=== PATIENT | male | born 1940 | race Caucasian/White ===

== ENCOUNTER 2020-12-08 09:31 | Outpatient (REF) | payer MEDICARE, SELFPAY ==
[2020-12-08 10:12] LABS: MANUAL DIFF FLAG NO
[2020-12-08 10:18] LABS: Basophils Percent Auto 0.5 % (0-2); Eosinophils Absolute Auto 0.1 X10*3/uL (0.0-0.4); Eosinophils Percent Auto 1.1 % (0-4); Hematocrit 45.1 % (42-52); Hemoglobin 14.8 g/dl (14.0-18.0); Imm Gran Abs Auto 0.01 X10*3/uL (0.00-0.03); Imm Gran Pct Auto 0.2 % (0.0-0.4); Lymphocytes Absolute Auto 1.9 X10*3/uL (1.2-4.9); Lymphocytes Percent Auto 29.8 % (20-40); Mean Corpuscular HGB Conc 32.8 g/dl (31.0-36.0); Mean Corpuscular Volume 88.3 fL (80-98); Monocytes Absolute Auto 0.4 X10*3/uL (0.1-1.2); Monocytes Percent Auto 6.7 % (2-11); Neutrophils Percent Auto 61.7 % (45-73); Platelet Count 189 X10*3/uL (160-400); Red Blood Count 5.11 X10*6/uL (4.60-5.80); Red Cell Distribution Width 13.2 % (11.0-16.0); White Blood Count 6.5 X10*3/uL (4.8-10.8)
[2020-12-08 10:35] LABS: Estimated Average Glucose 223 mg/dL; Hemoglobin A1c % 9.4 %
[2020-12-08 10:49] LABS: Alanine Aminotransferase 17 U/L (0-40); Albumin Level 4.4 g/dL (3.5-5.0); Alkaline Phosphatase 70 U/L (39-117); Anion Gap 13 (12-20); Aspartate Amino Transferase 19 U/L (5-37); Bilirubin Direct 0.7 mg/dL (0.0-0.5); Bilirubin Total 1.6 mg/dL (0.0-1.0); Blood Urea Nitrogen 16 mg/dL (9-16); Calcium 9.8 mg/dL (8.4-10.2); Carbon Dioxide 30 mmol/L (22-29); Chloride 105 mmol/L (96-108); Cholesterol 112 mg/dL; Estimated Glomerular Filt Rate > 60; Glucose Random 199 mg/dL (60-115); HDL Cholesterol 52 mg/dL; LDL Cholesterol Calculated 47 mg/dl; Potassium 4.7 mmol/L (3.3-5.1); Sodium 143 mmol/L (135-145); Total Protein 6.7 g/dL (6.5-8.0); Triglycerides 66 mg/dL
[2020-12-08 11:32] LABS: Creatinine Urine 72.16 mg/dL; Microalbum/Creatinine Ratio Ur 24.9 ug/mg cr
== END 2020-12-08 09:32 | disposition home or self-care (01) ==
LOC: HO.LAB 09:31
PROVIDERS: PCP Student in an Organized Health Care Education/Training Program; Visit Provider Student in an Organized Health Care Education/Training Program
DX: E11.9 Type 2 diabetes mellitus without complications (principal); E78.00 Pure hypercholesterolemia, unspecified; I10 Essential (primary) hypertension
CPT/HCPCS: 36415; 80048; 80061; 80076; 82043; 83036; 85025

== ENCOUNTER → 2021-03-23 14:56 | Outpatient (BNVA) | payer MEDICARE, SELFPAY | PROVIDERS: PCP Student in an Organized Health Care Education/Training Program; Visit Provider Internal Medicine Cardiovascular Disease | DX: I25.10 Atherosclerotic heart disease of native coronary artery without angina pectoris (principal); I10 Essential (primary) hypertension | CPT/HCPCS: 93005; 99212 ==

== ENCOUNTER → 2021-03-30 09:12 | Outpatient (BNVA) | payer MEDICARE, SELFPAY | PROVIDERS: PCP Student in an Organized Health Care Education/Training Program; Referring Provider Student in an Organized Health Care Education/Training Program; Visit Provider Surgery Vascular Surgery | DX: I83.12 Varicose veins of left lower extremity with inflammation (principal); I73.9 Peripheral vascular disease, unspecified | CPT/HCPCS: 99202 ==

== ENCOUNTER 2021-04-22 07:55 | Outpatient (REF) | payer MEDICARE, SELFPAY ==
--- NOTE | ~2021-04-22 | US_ITS ---
EXAMINATION: BILATERAL LOWER EXTREMITY VENOUS ULTRASOUND (Reflux Exam) CLINICAL INDICATION: Lower extremity varicose veins. History of prior venous intervention including vein harvest and ablation. COMPARISON: None. TECHNIQUE: Color flow triplex imaging and compression Doppler was performed to evaluate both the deep and the superficial systems bilaterally. To evaluate the superficial system, the examination was performed in the upright position. Color-flow Doppler ultrasound and compression ultrasound were utilized. In addition, maneuvers were utilized to demonstrate reflux. FINDINGS: 1. DEEP VENOUS ULTRASOUND OF THE RIGHT LOWER EXTREMITY: Common Femoral Vein: Compressible, normal respiratory variation and augmented flow. Femoral vein: Compressible, normal color flow and augmentation. Popliteal Vein: Compressible, normal augmentation. Deep Reflux: There is no evidence of reflux in the deep system in either the common femoral vein or the popliteal vein. There is no evidence of a Dennison's cyst. 2. SUPERFICIAL ULTRASOUND WITH DOPPLER OF RIGHT LOWER EXTREMITY GREAT SAPHENOUS VEIN: Saphenofemoral junction: 0.7 cm; Reflux: No evidence of reflux. The great saphenous vein is occluded from the proximal thigh to the distal thigh. The saphenous vein is patent from the knee to the ankle measuring between 2 and 4 mm. Reflux: No evidence of reflux. DUPLICATED MEDIAL GREAT SAPHENOUS VEIN: Max Diameter: None Imaged Reflux: NA DUPLICATED LATERAL GREAT SAPHENOUS VEIN: Diameter: 0.2 cm at the junction. Reflux: No reflux. SMALL SAPHENOUS VEIN: Saphenopopliteal junction: 0.2 cm; Reflux: No evidence of reflux. VEIN OF GIACOMINI: None Imaged. PERFORATORS: Location: Mid thigh arising from the mid femoral vein and proximal calf. Reflux: None. VARICOSITIES: Location: Maximal thigh, mid posterior thigh and proximal calf. Varicosities measure between 3 and 6 mm. Reflux: 3.1 seconds of reflux demonstrated within the proximal calf varicosity. 3. DEEP VENOUS ULTRASOUND OF THE LEFT LOWER EXTREMITY: Common Femoral Vein: Compressible, normal respiratory variation and augmented flow. Femoral vein: Compressible, normal color flow and augmentation. Popliteal Vein: Compressible, normal augmentation. Deep Reflux: Common femoral vein reflux up to 0.9 seconds and femoral vein reflux up to 2.2 seconds. There is no evidence of a Dennison's cyst. 4. SUPERFICIAL ULTRASOUND WITH DOPPLER OF LEFT LOWER EXTREMITY GREAT SAPHENOUS VEIN: Saphenopopliteal junction: 0.6 cm; Reflux: No evidence of reflux. The great saphenous vein is not visualized from the proximal thigh to the ankle. DUPLICATED MEDIAL GREAT SAPHENOUS VEIN: Max Diameter: None Imaged. Reflux: NA DUPLICATED LATERAL GREAT SAPHENOUS VEIN: Diameter: 0.2 cm. Reflux: No reflux. SMALL SAPHENOUS VEIN: Saphenofemoral junction: 0.2 cm cm; Reflux: No evidence of reflux. Min diameter: 0.2 cm. Reflux: Greater than 3.4 seconds of reflux at the distal calf. VEIN OF GIACOMINI: None Imaged. PERFORATORS: Location: Arising from the distal small saphenous vein, 0.2 cm. Reflux: None. VARICOSITIES: Location: Posterior knee, proximal and posterior calf. Varicosities measure between 5 and 7 mm. Reflux: Multiple varicosities within the posterior knee and calf demonstrate reflux greater than 3.2 seconds. US/US venous duplex LE BI IMPRESSION: 1. The right great saphenous vein is not visualized from the proximal thigh to the knee. The distal right great saphenous vein is patent from the knee to the ankle without reflux. 2. The left great saphenous vein is not seen. 3. There is left small saphenous venous insufficiency at the distal calf. 4. Bilateral refluxing varicosities. 5. Deep venous insufficiency involving the left common femoral and femoral veins. 6. No evidence of DVT.
== END 2021-04-22 07:56 | disposition home or self-care (01) ==
LOC: HO.US 07:55
PROVIDERS: PCP Student in an Organized Health Care Education/Training Program; Visit Provider Surgery Vascular Surgery
DX: I83.12 Varicose veins of left lower extremity with inflammation (principal)
CPT/HCPCS: 93970

== ENCOUNTER → 2021-05-04 09:54 | Outpatient (BNVA) | payer MEDICARE, SELFPAY | PROVIDERS: PCP Student in an Organized Health Care Education/Training Program; Visit Provider Surgery Vascular Surgery | DX: I83.12 Varicose veins of left lower extremity with inflammation (principal); I73.9 Peripheral vascular disease, unspecified; I25.10 Atherosclerotic heart disease of native coronary artery without angina pectoris; E11.9 Type 2 diabetes mellitus without complications; I10 Essential (primary) hypertension; E78.5 Hyperlipidemia, unspecified; Z95.1 Presence of aortocoronary bypass graft | CPT/HCPCS: 99212 ==

== ENCOUNTER → 2021-05-14 10:39 | Outpatient (BNVA) | payer MEDICARE, SELFPAY | PROVIDERS: PCP Student in an Organized Health Care Education/Training Program; Visit Provider Surgery Vascular Surgery | DX: I83.12 Varicose veins of left lower extremity with inflammation (principal) | CPT/HCPCS: 37766 ==

== ENCOUNTER → 2021-05-25 13:50 | Outpatient (BNVA) | payer MEDICARE, SELFPAY | PROVIDERS: PCP Student in an Organized Health Care Education/Training Program; Visit Provider Surgery Vascular Surgery | DX: I83.11 Varicose veins of right lower extremity with inflammation (principal) | CPT/HCPCS: 99212 ==

== ENCOUNTER 2021-06-01 11:19 | Outpatient (REF) | payer MEDICARE, SELFPAY ==
[2021-06-01 12:46] LABS: Prostate Specific Antigen 0.84 ng/mL (<0.05-4.0)
== END 2021-06-01 11:20 | disposition home or self-care (01) ==
LOC: HO.LAB 11:19
PROVIDERS: PCP Student in an Organized Health Care Education/Training Program; Visit Provider Urology
DX: Z12.5 Encounter for screening for malignant neoplasm of prostate (principal); N40.0 Benign prostatic hyperplasia without lower urinary tract symptoms
CPT/HCPCS: 36415; 84153

== ENCOUNTER 2021-06-15 12:59 | Outpatient (REF) | payer MEDICARE, SELFPAY | END 2021-06-15 13:00 | disposition home or self-care (01) | LOC: HO.LAB 12:59 | PROVIDERS: PCP Student in an Organized Health Care Education/Training Program; Visit Provider Urology | DX: N39.0 Urinary tract infection, site not specified (principal); N40.0 Benign prostatic hyperplasia without lower urinary tract symptoms; N32.0 Bladder-neck obstruction | CPT/HCPCS: 51798; 87086; 87088; 87186; 99212 ==

== ENCOUNTER → 2021-08-17 13:14 | Outpatient (BNVA) | payer MEDICARE, SELFPAY | PROVIDERS: PCP Student in an Organized Health Care Education/Training Program; Visit Provider Surgery Vascular Surgery | DX: I83.11 Varicose veins of right lower extremity with inflammation (principal) | CPT/HCPCS: 99212 ==

== ENCOUNTER → 2021-08-24 14:54 | Outpatient (BNVA) | payer MEDICARE, SELFPAY | PROVIDERS: PCP Student in an Organized Health Care Education/Training Program; Visit Provider Urology | DX: N32.0 Bladder-neck obstruction (principal) | CPT/HCPCS: 52000; 99212 ==

== ENCOUNTER → 2021-09-10 10:19 | Outpatient (BNVA) | payer MEDICARE, SELFPAY | PROVIDERS: PCP Student in an Organized Health Care Education/Training Program; Visit Provider Surgery Vascular Surgery | DX: I83.11 Varicose veins of right lower extremity with inflammation (principal) | CPT/HCPCS: 37765 ==

== ENCOUNTER → 2021-10-05 13:21 | Outpatient (BNVA) | payer MEDICARE, SELFPAY | PROVIDERS: PCP Student in an Organized Health Care Education/Training Program; Visit Provider Surgery Vascular Surgery | DX: I83.12 Varicose veins of left lower extremity with inflammation (principal) | CPT/HCPCS: 99212 ==

== ENCOUNTER → 2022-02-22 14:46 | Outpatient (BNVA) | payer MEDICARE, SELFPAY | PROVIDERS: PCP Student in an Organized Health Care Education/Training Program; Visit Provider Urology | DX: N32.0 Bladder-neck obstruction (principal); N39.0 Urinary tract infection, site not specified; Z79.899 Other long term (current) drug therapy | CPT/HCPCS: 51798; 99212 ==

== ENCOUNTER → 2022-03-24 13:56 | Outpatient (BNVA) | payer MEDICARE, SELFPAY | PROVIDERS: PCP Student in an Organized Health Care Education/Training Program; Visit Provider Internal Medicine Cardiovascular Disease | DX: I25.10 Atherosclerotic heart disease of native coronary artery without angina pectoris (principal); I10 Essential (primary) hypertension | CPT/HCPCS: 93005; 99212 ==

== ENCOUNTER 2022-03-25 10:11 | Outpatient (REF) | payer OTHER, SELFPAY ==
[2022-03-25 11:41] LABS: Anion Gap 15 (12-20); Blood Urea Nitrogen 13 mg/dL (9-16); Calcium 9.5 mg/dL (8.4-10.2); Carbon Dioxide 27 mmol/L (22-29); Chloride 106 mmol/L (96-108); Cholesterol 100 mg/dL; Estimated Glomerular Filt Rate > 60; Glucose Random 196 mg/dL (60-115); HDL Cholesterol 48 mg/dL; LDL Cholesterol Calculated 36 mg/dl; Potassium 4.6 mmol/L (3.3-5.1); Sodium 143 mmol/L (135-145); Triglycerides 82 mg/dL
== END 2022-03-25 10:12 | disposition home or self-care (01) ==
LOC: HO.LAB 10:11
PROVIDERS: PCP Student in an Organized Health Care Education/Training Program; Visit Provider Internal Medicine Cardiovascular Disease
DX: I25.10 Atherosclerotic heart disease of native coronary artery without angina pectoris (principal)
CPT/HCPCS: 36415; 80048; 80061

== ENCOUNTER 2022-05-07 12:06 | Emergency (ER) | payer OTHER, SELFPAY ==
--- NOTE | ~2022-05-07 | US_ITS ---
EXAMINATION: US VENOUS ULTRASOUND WITH DOPPLER LOWER EXTREMITY, RIGHT CLINICAL INFORMATION: Right lower extremity pain and swelling. COMPARISON: Right lower extremity venous ultrasonography 04/22/2021. TECHNIQUE: Ultrasound of the deep veins is performed from the hip to the calf with compression sonography and color and pulse Doppler assessment. Spectral analysis with color-flow imaging is performed. FINDINGS: There is normal venous compression and respiratory variation and augmented flow. The visualized common femoral vein, superficial femoral vein, profunda femoral vein, popliteal vein, and the trifurcation region shows no evidence of deep venous thrombosis. There is no significant popliteal fossa cyst. Images labeled right espinoza area of pain demonstrates subcutaneous ovoid wider than tall region measuring approximately 1.8 cm x 0.5 cm with no measurable internal flow. This region is self identified by palpation. If the patient's symptoms persist, followup ultrasound in 5 days 7 days might be of value to exclude proximal propagation from a non-visualized calf vein. US/US venous duplex LE RT IMPRESSION: *No DVT demonstrated in the right lower extremity. *1.8 cm x 0.5 cm subcutaneous pretibial focus which may represent a hematoma. This region was self identified by the patient. This region demonstrates no measurable internal flow. In the correct clinical setting, a developing abscess could have a similar appearance.
[2022-05-07 12:13] VITALS: BP 149/47; PULSE 79; RESP 18; TEMP 36.7; O2SAT 99; BMI 26.6
--- NOTE | 2022-05-07 12:32 | ED.EXTPRO ---
HPI - Extremity Problem General Chief complaint: Extremity Problem Stated complaint: R Leg Pain No Injury Time Seen by Provider: 05/07/22 12:26 Source: patient Mode of arrival: ambulatory History of Present Illness HPI Narrative: Patient is an 80-year-old male who presents to the emergency department for evaluation of right lower extremity pain and swelling. States that this is been ongoing for a week. He states that after raking he went inside and he noticed a plum sized lump to the leg that has actually decreased in size since this occurred. However, pain has worsened since last night. Pain localized to right medial leg, inferior to knee. Denies any numbness or tingling to the extremity, denies any cold sensation to the extremity. Is ambulatory with steady gait. Palpable 2+ DP/PT pulse bilaterally. Denies chest pain, shortness of breath, difficulty breathing. Denies history of DVT/PE. Denies history of anticoagulation disorder. Denies personal history of cancer. Related Data Home Medications Medication Instructions Recorded Confirmed albuterol sulfate 2.5 mg/3 mL mg inhalation 03/23/21 03/24/22 (0.083 %) solution for nebulization albuterol sulfate 90 mcg/actuation 2 puff PO QID 03/23/21 03/24/22 aerosol inhaler aspirin 81 mg chewable tablet 1 tab PO DAILY 03/23/21 03/24/22 cetirizine 10 mg tablet 10 mg PO DAILY 03/23/21 03/24/22 cilostazol 50 mg tablet 50 mg PO 03/23/21 03/24/22 hydrochlorothiazide 25 mg tablet 25 mg PO DAILY 03/23/21 03/24/22 ibuprofen 400 mg tablet 0 mg PO 03/23/21 03/24/22 metformin 1,000 mg tablet 1,000 mg PO BID 03/23/21 03/24/22 nitroglycerin 0.4 mg sublingual 0.4 mg sublingual angina 03/23/21 03/24/22 tablet blood sugar diagnostic (FreeStyle #10 ea 03/30/21 03/24/22 Lite Strips) lancets 33 gauge (TRUEplus Lancets) #100 ea 03/30/21 02/22/22 lidocaine 5 % topical ointment topical 03/30/21 02/22/22 clotrimazole-betamethasone 1 appl topical 05/04/21 03/24/22 %-0.05 % topical cream clobetasol 0.05 % topical cream g topical BID 06/15/21 03/24/22 glipizide 5 mg tablet 5 mg PO BID 06/15/21 03/24/22 Previous Rx's Medication Instructions Recorded tamsulosin 0.4 mg capsule 0.8 mg PO BEDTIME 90 days #180 caps 02/22/22 blood pressure monitor (Blood #1 ea 03/24/22 Pressure Kit) rosuvastatin 40 mg tablet 40 mg PO BEDTIME #90 tabs 03/24/22 telmisartan 40 mg tablet (Micardis) 40 mg PO DAILY #90 tabs 03/24/22 Allergies Allergy/AdvReac Type Severity Reaction Status Date / Time No Known Allergies Allergy Verified 02/22/22 14:10 [No Known Allergies*] Review of Systems Review of Systems: Constitutional: No weight loss. No fever. No chills. No weakness. No fatigue. Skin: No rash. No itching. Cardiovascular: No chest pain. No chest pressure. No palpitations. Positive pedal edema. Respiratory: No shortness of breath. No cough. No sputum production. Gastrointestinal: No anorexia. No nausea. No vomiting. No diarrhea. No abdominal pain. Genitourinary: No burning micturition. No urinary frequency. No incontinence. Neurologic: No headache. No dizziness. No pre-syncope/ syncope. No unilateral weakness. No ataxia. No numbness. No tingling. No change in bowel or bladder control. Musculoskeletal: No muscle pain. No back pain. No joint pain. No stiffness. Positive right leg pain Hematologic: No bleeding. No bruising. Lymphatics: No enlarged lymph nodes. Yes all other systems are reviewed and are negative [facility], [facility] Past Medical History Attestation statement: The following information was validated with the patient. Source: old records reviewed Medical History CAD (coronary artery disease) Diabetes mellitus HTN (hypertension) Hyperlipidemia PVD (peripheral vascular disease) Surgical History History of gastric surgery Hx of CABG Family History Family History Father No problems noted. Mother No problems noted. Sister Cancer Social History Social History Patient Tobacco Use Status: Never used Tobacco Advance Directives: No Advance Directives Information Provided: Yes Physical Exam Vital Signs: Vital Signs: Last Vital Signs Temp 98.1 F 05/07/22 12:13 Pulse 61 05/07/22 14:17 Resp 18 05/07/22 14:17 BP 157/55 H 05/07/22 14:17 Pulse Ox 99 05/07/22 14:17 O2 Del Method 05/07/22 14:17 BMI result Body Mass Index 26.6 Appearance: Alert.?Oriented to person, place and time. No acute distress.?Normal affect. Eyes: Pupils equal, round and reactive to light.? ENT: Pharynx normal.?? Neck: Normal inspection.? Neck supple.?? CVS: Heart sounds normal. Normal heart rate and rhythm.? Pulses normal.?? Respiratory: No respiratory distress.? Lung sounds clear to auscultation bilaterally?? Abdomen: Soft and non-tender. Normoactive bowel sounds. Skin: Skin warm and dry.? Normal skin color.? Extremities: 1+ bilateral lower extremity edema.? No calf ttp. 2+ DP/PT pulse bilaterally. Notable varicose veins to the area of pain and swelling in the right lower extremity. No erythema, rash, skin lesions, wounds. Neuro: Moves all extremities spontaneously. Sensation intact bilaterally. CN II-XII intact. No focal neuro deficits. Ambulates with normal steady gait. Course Course Course Narrative: Patient is an 82-year-old male with a past medical history of CAD, CABG, diabetes, hypertension, hyperlipidemia, PVD, varicose veins, wears thigh-high compression stockings daily, followed by vascular Dr. Vega. Upon exam the area pain is noted to have presence of varicose vein. There is no wound, lesion, redness, warmth, does not appear consistent with cellulitis/abscess. However given sudden onset of worsening pain and swelling will obtain ultrasound to exclude DVT. Reevaluation(s) Reevaluation #1: Ultrasound reveals no evidence of DVT, there is a pretibial focus which may represent a hematoma, no external bruising, patient denies any specific injury to this area, not consistent with abscess. Suspect possible ruptured varicose vein after activity which may have caused the initial swelling immediately after, it is overall improving. Discussed Management of varicose veins continued usage of compression stockings, leg elevation, routine exercise, outpatient follow-up with vascular, and PCP. Patient verbalized understanding, was discharged home in stable condition. Time: 15:46 MDM - Extremity (Nontraumatic) Medical Records Attestation: I reviewed the patient's medical records. Lab Data Attestation: I reviewed the patient's lab results. Result diagrams: 05/07/22 13:01 05/07/22 13: Labs: Lab Results 05/07/22 05/07/22 05/07/22 Range/Units 13: 13: 13:01 WBC 5.6 (4.8-10.8) X10*3/uL RBC 4.51 L (4.60-5.80) X10*6/uL Hgb 13.1 L (14.0-18.0) g/dl Hct 40.0 L (42.0-52.0) % MCV 88.7 (80.0-98.0) fL MCH 29.0 (27.0-33.0) pg MCHC 32.8 (31.0-36.0) g/dl RDW 13.4 (11.0-16.0) % Plt Count 160 (160-400) X10*3/uL MPV 10.9 (9.4-12.4) fL Immature Gran % (Auto) 0.2 (0.0-0.4) % Neut % (Auto) 69.0 (45-73) % Lymph % (Auto) 22.1 (20-40) % Gilmer % (Auto) 6.8 (2-11) % Eos % (Auto) 1.4 (0-4) % Baso % (Auto) 0.5 (0-2) % Lymph # (Auto) 1.2 (1.2-4.9) X10*3/uL Gilmer # (Auto) 0.4 (0.1-1.2) X10*3/uL Eos # (Auto) 0.1 (0.0-0.4) X10*3/uL Baso # (Auto) 0.0 (0.0-0.2) X10*3/uL Abs Immat Gran (auto) 0.01 (0.00-0.03) X10*3/uL Absolute Neuts (auto) 3.8 (2.0-8.3) x10*3/uL Absolute Nucleated RBC 0.000 (0.0-0.012) X10*3/uL Nucleated RBC % (auto) 0.0 (0.0-0.2) /100WBC PT 14.1 H (10.0-13.1) SEC INR 1.2 H (0.9-1.1) Sodium 143 (135-145) mmol/L Potassium 3.9 (3.3-5.1) mmol/L Chloride 106 (96-108) mmol/L Carbon Dioxide 27 (22-29) mmol/L Anion Gap 14 (12-20) BUN 14 (9-16) mg/dL Creatinine 1.12 (0.5-1.4) mg/dL Estim Creat Clear Calc 47.5 Estimated GFR > 60 Random Glucose 279 H D (60-115) mg/dL Calcium 9.4 (8.4-10.2) mg/dL Magnesium 1.9 (1.6-2.6) mg/dL Total Bilirubin 1.8 H (0.0-1.0) mg/dL AST 16 (5-37) U/L ALT 12 (0-40) U/L Alkaline Phosphatase 60 (39-117) U/L Total Protein 6.1 L (6.5-8.0) g/dL Albumin 4.0 (3.5-5.0) g/dL Imaging Data Venous US: Radiologist's impression: US/US venous duplex LE RT IMPRESSION: *No DVT demonstrated in the right lower extremity. *1.8 cm x 0.5 cm subcutaneous pretibial focus which may represent a hematoma. This region was self identified by the patient. This region demonstrates no measurable internal flow. In the correct clinical setting, a developing abscess could have a similar appearance. Discharge Plan Discharge Clinical Impression: Varicose veins of right lower extremity with inflammation, Hematoma Patient Disposition: Home, Self-Care Additional Instructions: As we discussed, the ultrasound does not reveal any blood clot to the leg. It is not appear to be any infection at this time. I suspect that after exerting yourself, it is likely that a varicose vein had ruptured causing a hematoma to this area. Continue wearing compression stockings, elevating your legs, engaging in regular exercise, and follow-up with your vascular doctor as well as primary care provider. Return to the emergency department with any new or worsening symptoms or concerns. Prescriptions: No Action aspirin 81 mg tablet,chewable 1 tab PO DAILY nitroglycerin 0.4 mg tablet, sublingual 0.4 mg sublingual cilostazol 50 mg tablet 50 mg PO albuterol sulfate 90 mcg/actuation HFA aerosol inhaler 2 puff PO QID ibuprofen 400 mg tablet 0 mg PO hydrochlorothiazide 25 mg tablet 25 mg PO DAILY metformin 1,000 mg tablet 1,000 mg PO BID albuterol sulfate 2.5 mg /3 mL (0.083 %) solution for nebulization inhalation cetirizine 10 mg tablet 10 mg PO DAILY lidocaine 5 % ointment topical (DME) lancets [TRUEplus Lancets] 33 gauge misc See Rx Instructions topical .MEDSUPPLY Qty: 100 Rx Instructions: As directed (DME) FreeStyle Lite Strips Strip See Rx Instructions Not Applicable BID Qty: 10 Rx Instructions: As directed clotrimazole-betamethasone 1-0.05 % cream topical clobetasol 0.05 % cream topical BID glipizide 5 mg tablet 5 mg PO BID telmisartan [Micardis] 40 mg tablet 40 mg PO DAILY Qty: 90 3RF rosuvastatin 40 mg tablet 40 mg PO BEDTIME Qty: 90 3RF (DME) blood pressure monitor [Blood Pressure Kit] Kit See Rx Instructions .Route Qty: 1 0RF Rx Instructions: As directed tamsulosin 0.4 mg capsule 0.8 mg PO BEDTIME 90 Days Qty: 180 2RF Referrals: Kindra Saldivar MD [Primary Care Provider] - Interventions: ED Discharge Assessment Last Done: 05/07/22 16:12 Discharge Date/Time: 05/07/22 16:13
[2022-05-07 13:04] LABS: MANUAL DIFF FLAG NO
[2022-05-07 13:07] LABS: Basophils Percent Auto 0.5 % (0-2); Eosinophils Absolute Auto 0.1 X10*3/uL (0.0-0.4); Eosinophils Percent Auto 1.4 % (0-4); Hemoglobin 13.1 g/dl (14.0-18.0); Imm Gran Abs Auto 0.01 X10*3/uL (0.00-0.03); Imm Gran Pct Auto 0.2 % (0.0-0.4); Lymphocytes Absolute Auto 1.2 X10*3/uL (1.2-4.9); Lymphocytes Percent Auto 22.1 % (20-40); Mean Corpuscular HGB Conc 32.8 g/dl (31.0-36.0); Mean Corpuscular Volume 88.7 fL (80.0-98.0); Mean Platelet Volume 10.9 fL (9.4-12.4); Monocytes Absolute Auto 0.4 X10*3/uL (0.1-1.2); Monocytes Percent Auto 6.8 % (2-11); Neutrophils Absolute Auto 3.8 x10*3/uL (2.0-8.3); Platelet Count 160 X10*3/uL (160-400); Red Blood Count 4.51 X10*6/uL (4.60-5.80); Red Cell Distribution Width 13.4 % (11.0-16.0); White Blood Count 5.6 X10*3/uL (4.8-10.8)
[2022-05-07 13:12] LABS: INTERNATIONAL NORM RATIO 1.2 (0.9-1.1); Prothrombin Time 14.1 SEC (10.0-13.1)
[2022-05-07 13:32] LABS: Alanine Aminotransferase 12 U/L (0-40); Alkaline Phosphatase 60 U/L (39-117); Anion Gap 14 (12-20); Aspartate Amino Transferase 16 U/L (5-37); Bilirubin Total 1.8 mg/dL (0.0-1.0); Blood Urea Nitrogen 14 mg/dL (9-16); Calcium 9.4 mg/dL (8.4-10.2); Carbon Dioxide 27 mmol/L (22-29); Chloride 106 mmol/L (96-108); Creatinine Clr Calc Pharmacy 47.5; Estimated Glomerular Filt Rate > 60; Glucose Random 279 mg/dL (60-115); Magnesium 1.9 mg/dL (1.6-2.6); Potassium 3.9 mmol/L (3.3-5.1); Sodium 143 mmol/L (135-145); Total Protein 6.1 g/dL (6.5-8.0)
[2022-05-07 14:17] VITALS: BP 157/55; PULSE 61; RESP 18; O2SAT 99
== END 2022-05-07 16:13 | disposition home or self-care (01) ==
PROVIDERS: Nurse Practitioner Family; Emergency Provider Emergency Medicine; PCP Student in an Organized Health Care Education/Training Program
DX: I83.91 Asymptomatic varicose veins of right lower extremity (principal); M79.661 Pain in right lower leg; R60.0 Localized edema; Z79.899 Other long term (current) drug therapy
CPT/HCPCS: 36415; 80053; 83735; 85025; 85610; 93971; 99284

== ENCOUNTER → 2022-08-23 13:43 | Outpatient (BNVA) | payer OTHER, SELFPAY | PROVIDERS: PCP Student in an Organized Health Care Education/Training Program; Visit Provider Urology | DX: N39.0 Urinary tract infection, site not specified (principal); N32.0 Bladder-neck obstruction; Z87.442 Personal history of urinary calculi | CPT/HCPCS: 51798; 99212 ==

== ENCOUNTER 2022-10-14 12:04 | Outpatient (REF) | payer OTHER, SELFPAY ==
--- NOTE | ~2022-10-14 | XR_ITS ---
EXAMINATION: XR CHEST CLINICAL INFORMATION: Chronic cough COMPARISON: Chest radiographs 03/31/2017, 07/20/2015; CT chest noncontrast 04/14/2017. TECHNIQUE: 2 views of the chest were obtained. FINDINGS: There has been prior median sternotomy with mediastinal surgical clips and sternotomy wires. The cardiopericardial silhouette is within upper limits of normal similar to prior exam. The vascularity is normal. There is no vascular congestion or effusion. The costophrenic sulci are clear. There is subsegmental atelectasis right base. No lobar or segmental airspace consolidation or groundglass opacity or bronchograms. The hilar and mediastinal contours and bony structures are similar to prior studies. There is a stable old sclerotic density overlying the left posterior lateral 6th rib. XR/XR chest 2V IMPRESSION: -Subsegmental atelectasis right base. -No airspace consolidation, groundglass opacity, or effusion. -Prior median sternotomy. No vascular congestion or effusion.
== END 2022-10-14 12:05 | disposition home or self-care (01) ==
LOC: HO.XRAY 12:04
PROVIDERS: PCP Student in an Organized Health Care Education/Training Program; Visit Provider General Practice
DX: R05.3 Chronic cough (principal)
CPT/HCPCS: 71046

== ENCOUNTER 2023-03-07 11:09 | Outpatient (REF) | payer OTHER, SELFPAY ==
[2023-03-07 15:00] LABS: Estimated Average Glucose 194 mg/dL; Hemoglobin A1c % 8.4 % (<6.0)
[2023-03-07 15:18] LABS: Alanine Aminotransferase 20 U/L (0-40); Albumin Level 4.3 g/dL (3.5-5.0); Alkaline Phosphatase 64 U/L (39-117); Anion Gap 13 (12-20); Aspartate Amino Transferase 20 U/L (5-37); Bilirubin Direct 0.6 mg/dL (0.0-0.5); Bilirubin Total 1.8 mg/dL (0.0-1.0); Blood Urea Nitrogen 14 mg/dL (9-16); Carbon Dioxide 27 mmol/L (22-29); Chloride 108 mmol/L (96-108); Cholesterol 105 mg/dL (<200); Estimated Glomerular Filt Rate > 60; Glucose Fasting 130 mg/dL (60-99); HDL Cholesterol 52 mg/dL (>40); LDL Cholesterol Calculated 37 mg/dL (<100); Potassium 4.1 mmol/L (3.3-5.1); Sodium 144 mmol/L (135-145); Total Protein 6.7 g/dL (6.5-8.0); Triglycerides 81 mg/dL (<150)
== END 2023-03-07 11:10 | disposition home or self-care (01) ==
LOC: HO.CHCLDS 11:09
PROVIDERS: Visit Provider Student in an Organized Health Care Education/Training Program
DX: E11.9 Type 2 diabetes mellitus without complications (principal)
CPT/HCPCS: 36415; 80048; 80061; 80076; 83036

== ENCOUNTER → 2023-03-21 07:57 | Outpatient (REF) | payer OTHER, SELFPAY ==
--- NOTE | ~2023-03-21 | NM_ITS ---
Exercise Myocardial perfusion study Indication: Atherosclerotic cardiovascular disease with prior coronary bypass grafting,surveillance Technique: The patient was brought in for an exercise perfusion study on 03/21/2023. Patient performed exercise as per Osmel protocol and was injected 25 mCi of sestamibi was given intravenously one target HR was achieved. Images were obtained using the SPECT gamma camera interlaced with the gating device. Images were obtained in supine position. Resting perfusion study was performed on 03/22/2023. Patient was administered 25 mCi of sestamibi intravenously at rest. Images were then obtained in supine position. Images obtained with and without CT attenuation. Total DLP 79 mGy-cm. Images were processed with the software and compared side to side in short axis, horizontal long axis and vertical long axis views. Findings: The stress perfusion study showed non attenuated images show mildly to moderately reduced uptake in the basal inferior wall and basal lateral wall of the LV myocardium. Remainder of the LV myocardium is normally perfused. Attenuation corrected images show normal uptake of radiotracer in all segments. The gated study shows normal LV systolic function with calculated LVEF of 73%. LV cavity is normal in size. The gated study shows normal systolic wall thickening and contraction of all segments. There is no transient ischemic dilation. Resting study shows no change in perfusion pattern compared to stress perfusion study. Gating at rest reveals normal systolic wall motion with ejection fraction at 75%. The findings are consistent with no reversible defect with overall normal myocardial perfusion. NM/NM leigha perf SPECT rest & str Impression: 1. Normal myocardial perfusion 2. Gated LVEF is 73% 3. Transient ischemic dilatation not present Stress EKG is negative for ischemia
--- NOTE | 2023-03-21 08:03 | CA_ITS ---
Acquisition Time: 2023-03-21 09:18:37 Total Exercise Time: 00:06:06 Test Indications: ASHD,CAD Medications: Protocol: EDISON Max HR: 122 BPM 89% of Pred: 137 BPM Max BP: 174/078 mmHG Max Work Load: 6.3 METS Exercise stress test exercise 6 min 6 sec of Edison protocol (stage 2 manually increased to 2.2 MPH anbd 12% grade) achieving 89% MPHR, without anginal symptoms, with isolated PVC and PAC, with normotensive response to exercise, with nondiagnositic EKGs / baseline abnormalities. Nuclear images pending. Test reviewed with Dr. Dominguez. Referred By: Norman Garcia Overread By: Radha Weaver
--- NOTE | 2023-03-21 08:03 | CA_ITS ---
Transthoracic Echocardiogram Patient (Last, First, Middle): Branden Gibson, Gender: Male Date of : 1940 Age: 83 Procedure Date: 03/21/2023 Procedure Type: Transthoracic Echocardiogram Location: OP Height: 170.18 cm Weight: 75.01 kg BSA: 1.87 m2 Heart Rate: bpm BP: 130 / 60 mmHg Business Management Professor: TO Referring MD: Norman Garcia MD Symptoms: I25.10 - Atherosclerotic heart disease of [place] coronary artery without... Study Quality: Adequate Conclusions: - The left ventricular systolic function is normal. The calculated ejection fraction is 60% by biplane method. - There is moderate septal and moderate basal asymmetric hypertrophy. - Evidence suggests grade I (mild) diastolic dysfunction. - There is mild calcification of the aortic valve. - There is mild to moderate tricuspid valve regurgitation. Findings Left Ventricle Normal left ventricular cavity size. The left ventricular systolic function is normal. The calculated ejection fraction is 60% by biplane method. There is no evidence of regional wall motion abnormalities. Evidence suggests grade I (mild) diastolic dysfunction. There is moderate septal and moderate basal asymmetric hypertrophy. Right Ventricle Mildly increased right ventricular cavity size. There is normal right ventricular systolic function. Atria The left atrium is mildly dilated. The right atrium is moderately dilated. Aortic Valve There is a normal trileaflet aortic valve. There is mild calcification of the aortic valve. There is no aortic valve stenosis. There is no aortic valve regurgitation. Mitral Valve There is mild mitral annular calcification. There is no mitral valve regurgitation. There is no mitral valve stenosis. Pulmonic Valve The pulmonic valve is likely normal. There is trace pulmonic valve regurgitation. Tricuspid Valve Normal tricuspid valve structure. There is mild to moderate tricuspid valve regurgitation. There is no evidence of pulmonary hypertension. Great Vessels The asc aorta is normal in size. Venous The inferior vena cava is mildly dilated and collapses greater than 50% with inspiration. Pericardium/Pleural There is no evidence of pericardial effusion. Prior Study Comparison Changes noted compared to prior study dated: 08/01/2017. Increase in atrial size. Measurements 2D Linear Measurements IVSd: 1.33 0.6-0.9/0.6-1.0 cm LVIDd: 4.13 3.9-5.3/4.2-5.9 cm LVIDd Index: 2.21 2.4-3.2/2.2-3.1 cm/m2 LVIDs: 2.87 2.0-3.6 cm LVPWd: 0.86 0.7-1.1 cm LA Diam: 3.90 2.7-3.8/3.0-4.0 cm LAIDs Index: 2.09 1.5-2.3 cm/m2 LV Mass: 188.90 67-162/88-224 g LV Mass Index: 101.01 43-95/49-115 g/m2 LVOT Diam: 2.30 3.0+(-)1.3 cm 2D Systolic Function EF 4C: 57.20 >55% EF 2C: 62.50 >55% EF BiP: 60.00 >55% Mitral Valve MV VTI: 0.36 MV Pk Colten: 1.12 MV Mn Colten: 0.58 MV Pk Grad: 5.00 MV Mn Grad: 2.00 MV Pk E: 0.85 MV PK A: 0.95 MV Decel Time: 280.00 E/A: 0.90 E'Lateral: 5.44 E'Medial: 4.68 E/E' Med: 18.20 E/E' Lat: 15.70 PHT: 82.00 MVA PHT: 2.68 MVA Continuity: 2.50 Decel [place]: 3.04 Aortic Valve AoV Pk Colten: 1.21 AoV Mn Colten: 0.83 AoV VTI: 0.27 AoV Pk Grad: 6.00 Aov Mn Grad: 3.00 BEATRIZ Cont.VTI: 3.35 LVOT LVOT Pk Colten: 0.82 LVOT Mn Colten: 0.56 LVOT VTI: 0.21 LVOT Pk Grad: 3.00 LVOT Mn Grad: 1.00 LVOT Diam: 2.30 LVOT Area: 4.15 Diastolic Function MV Pk E: 0.85 MV Pk A: 0.95 E/A: 0.90 E'Medial: 4.68 E/E' Med: 18.20 E' Laterial: 5.44 E/E' Lat: 15.70 Right Ventricle TAPSE (mm): 18.40 TVS' Colten: 11.20 Tricuspid Valve TR Pk Colten: 2.70 TR Pk Grad: 29.00 RA Press: 8.00 RVSP: 37.00 Great Vessels Aorta Sinus of Valsalva: 3.39 2.0-3.5 cm Ao Asc: 3.10 2.1-3.4 cm Updated in Other Vendor System with Status of Final Louie Dominguez MD electronically signed on 03/22/2023 11:21:53 AM with status of Final
== END ==
LOC: HO.CARD 07:57
PROVIDERS: PCP Student in an Organized Health Care Education/Training Program; Visit Provider Internal Medicine Cardiovascular Disease
DX: I25.10 Atherosclerotic heart disease of native coronary artery without angina pectoris (principal)
CPT/HCPCS: 78452; 93017; 93306; A9500

== ENCOUNTER → 2023-03-21 08:03 | Outpatient (BNV) | payer OTHER, SELFPAY | PROVIDERS: PCP Student in an Organized Health Care Education/Training Program; Visit Provider Nurse Practitioner | DX: I25.10 Atherosclerotic heart disease of native coronary artery without angina pectoris (principal); I36.1 Nonrheumatic tricuspid (valve) insufficiency | CPT/HCPCS: 78452; 93016; 93018; 93306 ==

== ENCOUNTER 2023-04-04 12:32 | Outpatient (AMB) | payer MEDICARE, SELFPAY ==
[2023-04-04 12:42] VITALS: BP 116/70; PULSE 66; BMI 26.6
--- NOTE | 2023-04-04 12:42 | MHC.OFFVIS ---
Intake Vital Signs 04/04/23 12:42 Height 5 ft 7 in Weight 169 lb 12.095 oz BMI 26.6 BP 116/70 Blood Pressure Location Lt brachial Position Sitting Pulse 66 Intake Visit Reasons: 1 year follow up, after echo & stress test Intake Note: 1 year follow-up after echo and stress feeling good Doughnut Dough Mixer Required: Yes Doughnut Dough Mixer Name: Mike goins Allergies No Known Allergies [No Known Allergies*] Allergy (Verified 08/23/22 13:50) Medication List - Last Reconciled 04/04/23 by Norman Garcia MD albuterol sulfate 90 mcg/actuation 2 puffs PO QID albuterol sulfate mg inhalation aspirin 1 tab PO DAILY blood pressure monitor (Blood Pressure Kit) As directed blood sugar diagnostic (FreeStyle Lite Strips) As directed cetirizine 10 mg PO DAILY cilostazol 50 mg PO clobetasol 0.05% grams topical BID clotrimazole-betamethasone 1-0.05 % appl topical glipizide 10 mg PO hydrochlorothiazide 25 mg PO DAILY ibuprofen 0 mg PO lancets (TRUEplus Lancets) As directed lidocaine 5% topical metformin 1,000 mg PO BID nitroglycerin 0.4 mg sublingual rosuvastatin 40 mg PO BEDTIME tamsulosin 0.8 mg (2 x 0.4 mg) PO BEDTIME 90 days telmisartan (Micardis) 40 mg PO DAILY HPI HPI Comments History of Present Illness Details Branden comes for follow-up. History was obtained with help of a French brazer assembler. Patient recently underwent myocardial perfusion imaging for surveillance of his venous graft of which showed normal myocardial perfusion. Echocardiogram shows normal LV systolic function with mild mitral regurgitation. He denies any cardiac symptoms. Does not exercise on regular basis but does a lot of gardening. Takes all his medications. Denies any symptoms of claudication. Denies any orthopnea, PND, leg edema. No lightheadedness, syncope. [facility] Medical History Diabetes mellitus Hyperlipidemia HTN (hypertension) PVD (peripheral vascular disease) CAD (coronary artery disease) Surgical History History of gastric surgery Hx of CABG Family History Father No problems noted. Mother No problems noted. Sister Cancer Social History Patient Tobacco Use Status: Never used Tobacco Review of Systems Const Denies chills, Denies fatigue, Denies fever(s), Denies frequent falls, Denies weakness, Denies weight gain and Denies weight loss ENT Denies dizziness Card Denies chest pain, Denies leg edema, Denies lightheadedness, Denies palpitations, Denies dyspnea, Denies dyspnea on exertion, Denies orthopnea and Denies other (loss of consciousness) Resp Denies cough, Denies dyspnea and Denies dyspnea on exertion GI Denies hematochezia and Denies change in stool character Musc Denies abnormal gait, Denies muscle weakness, Denies numbness, Denies radiating pain into limb and Denies tingling Neuro Denies abnormal gait, Denies dizziness, Denies frequent falls, Denies numbness, Denies tingling and Denies weakness Endo Denies fatigue and Denies palpitations Physical Exam Vital Signs: Last Vital Signs Pulse 66 04/04/23 12:42 BP 116/70 04/04/23 12:42 BMI result Body Mass Index 26.6 Const General: cooperative, comfortable, no acute distress, alert and awake Nutritional Appearance: average body habitus Orientation/consciousness: patient oriented x3 Limitations: no limitations Neck Neck: Yes trachea midline, Yes supple and Yes no JVD Carotids: no bruits Chest Breast/axilla palpation: other (Well-healed sternotomy scar) Resp Effort & Inspection: normal respiratory effort Auscultation: clear to auscultation bilaterally Cardio Jugular venous distension: no JVD Palpation: normal PMI Rate: regular rate Rhythm: regular rhythm Heart sounds: S1 normal heart sound present, S2 normal heart sound present, no click, no gallops, no murmurs and no rubs Peripheral pulses: other (Reduced distal pulses) GI Auscultation: normal bowel sounds Skin General skin exam: no rashes or lesions noted Neuro General: patient oriented x3 and no focal motor deficits Extrem General: Yes no clubbing, cyanosis or edema Office Procedures EKG Details: EKG shows normal sinus rhythm with ST T wave inversion inferolateral leads most likely suggestive repolarization abnormality, unchanged from before 54111-[id number], Complete Assessment & Plan Assessment & Plan (1) CAD (coronary artery disease): Code(s): I25.10 - Atherosclerotic heart disease of [place] coronary artery without angina pectoris Plan: Coronary artery disease with remote coronary artery bypass grafting as well as diffuse vascular disease with PVD. Recent myocardial perfusion imaging within normal limits consistent with patent grafts. Patient has no anginal symptoms. Continue aggressive medical therapy. Continue low-dose aspirin therapy for life. Continue high-intensity statin therapy with target goal LDL closer to 60 mg/dL. Continue aggressive blood pressure control, see below. Continue aggressive management diabetes which is being pursue 3 our office with goal hemoglobin A1c less than 7%. (2) HTN (hypertension): Code(s): I10 - Essential (primary) hypertension Plan: Hypertension which is currently well optimized advised to monitor blood pressure at home maintain a log. Goal blood pressure less than 130/84 at all times. Advise low-salt diet. Advised to maintain activity level and participate in regular physical activity especially aerobic activity. He understands agrees. Will follow up in the clinic in 1 year's time, sooner p.r.n.. Thank you for allowing me to partake in his care Medications: New nitroglycerin do not exceed 3 doses per episode 0.4 mg sublingual Q5M PRN 20 tabs 1RF chest pain Changed From telmisartan (Micardis) 40 mg PO DAILY 90 tabs 3RF I25.10 - Atherosclerotic heart disease of [place] coronary artery without angina pectoris To Micardis (telmisartan) 40 mg PO DAILY 90 tabs 3RF NS I25.10 - Atherosclerotic heart disease of [place] coronary artery without angina pectoris Coding Level of Care Code Est Pt Level 4 (98989) Diagnoses CAD (coronary artery disease) I25.10 HTN (hypertension) I10 CPT Codes EKG - CPT: 49783-[id number], Complete ([id number])
== END 2023-04-04 13:08 | disposition home or self-care (01) ==
PROVIDERS: PCP Student in an Organized Health Care Education/Training Program; Visit Provider Internal Medicine Cardiovascular Disease
DX: I25.10 Atherosclerotic heart disease of native coronary artery without angina pectoris (principal); I10 Essential (primary) hypertension
CPT/HCPCS: 93010; 99214

== ENCOUNTER → 2023-04-04 12:32 | Outpatient (BNVA) | payer MEDICARE, SELFPAY | PROVIDERS: PCP Student in an Organized Health Care Education/Training Program; Visit Provider Internal Medicine Cardiovascular Disease | DX: I25.10 Atherosclerotic heart disease of native coronary artery without angina pectoris (principal); I10 Essential (primary) hypertension; Z95.1 Presence of aortocoronary bypass graft | CPT/HCPCS: 93005; 99212 ==

== ENCOUNTER 2023-10-04 15:27 | Outpatient (AMB) | payer OTHER, SELFPAY ==
--- NOTE | 2023-10-04 15:32 | A.OFFVIS_ITS ---
Intake Intake Visit Reasons: 1Y PVR/UTI Follow Up Intake Note: Patient presents today for a yearly follow up on PVR/UTI Meds- Tamsulosin Allergies to Antibiotic- No Known Allergies Blood Thinner- Aspirin Post Void Residual: 264ml [employer] Service Technician Required: Yes Accompanied by: Self / Same As Patient Allergies No Known Allergies [No Known Allergies*] Allergy (Verified 10/04/23 15:36) Medication List - Last Reconciled 10/04/23 by Jacques Nunez MD albuterol sulfate 90 mcg/actuation 2 puffs PO QID albuterol sulfate mg inhalation aspirin 1 tab PO DAILY bethanechol chloride 50 mg PO BID 30 days blood pressure monitor (Blood Pressure Kit) As directed blood sugar diagnostic (FreeStyle Lite Strips) As directed cetirizine 10 mg PO DAILY cilostazol 50 mg PO clobetasol 0.05% grams topical BID clotrimazole-betamethasone 1-0.05 % appl topical glipizide 10 mg PO hydrochlorothiazide 25 mg PO DAILY ibuprofen 0 mg PO lancets (TRUEplus Lancets) As directed lidocaine 5% topical metformin 1,000 mg PO BID Micardis (telmisartan) 40 mg PO DAILY NS nitroglycerin 0.4 mg sublingual nitroglycerin 0.4 mg sublingual Q5M PRN rosuvastatin 40 mg PO BEDTIME sulfamethoxazole-trimethoprim 800-160 mg (Bactrim DS) 1 tab PO BID 5 days tamsulosin 0.8 mg (2 x 0.4 mg) PO BEDTIME 90 days HPI HPI Comments History of Present Illness Details Branden is a very pleasant Citizen Of [place] male. He is a patient of Dr. Saldivar. He is seen for the following urologic conditions - bladder outlet obstruction - incomplete bladder emptying Long-term high PVR PVR 260 Has been on tamsulosin 0.8 mg Would add bethanechol to assist with bladder emptying Possible UTI will add Bactrim 5 days Lower urinary tract symptoms primarily incomplete emptying Longstanding Current treatment tamsulosin 0.8 mg High PVR 120 cc Office investigations - 08/31 cystoscopy with open bladder neck Background diabetes HBA1c 8.4% Nephrolithiasis Prior diagnosis of stones with ESWL in the past No recent imaging PFSH Medical History Diabetes mellitus Hyperlipidemia HTN (hypertension) PVD (peripheral vascular disease) CAD (coronary artery disease) Surgical History History of gastric surgery Hx of CABG Family History Father No problems noted. Mother No problems noted. Sister Cancer Social History Patient Tobacco Use Status: Never used Tobacco Review of Systems Const Denies chills and Denies fever(s) Card Reports no additional complaints and Denies syncope Resp Denies cough GI Denies abdominal pain and Denies heartburn Reports as per HPI and Denies change in libido Neuro Denies syncope Psych Denies change in libido Endo Denies change in libido Physical Exam Const General: cooperative, healthy appearing, comfortable and no acute distress Orientation/consciousness: patient oriented x3 HEENT Face and sinus: Yes normal facial exam Mouth: moist mucous membranes Neck Neck: Yes normal visual inspection, Yes full ROM and Yes trachea midline Chest Chest palpation & inspection: normal inspection of the chest Resp Effort & Inspection: normal respiratory effort, able to speak in complete sentences and no respiratory distress GI Inspection: Yes normal to inspection Back/Spine/Pelvis Cervical Spine: normal cervical lordosis Thoracic/Lumbar Spine: thoracic and lumbar spine normal to inspection Skin General skin exam: no rashes or lesions noted Neuro General: patient oriented x3, gait normal, tone normal and moves all extremities Extrem General: Yes normal to inspection and Yes capillary refill normal Results AMB Urinalysis, Automated UA Leukoctes 15 Lloyd/uL Last Edit by April Vidal CMA on 10/04/23 15:48 UA Nitrite Positive Last Edit by April Vidal CMA on 10/04/23 15: 48 UA Urobilinogen 6.2 mg/dL Last Edit by April Vidal CMA on 4 15:48 UA Protein 0 mg/dL Last Edit by April Vidal [facility] on 10/04/23 15:48 UA pH 6.0 Last Edit by April Vidal [facility] on 10/04/23 15:48 UA Blood 10 Kaleb/uL Last Edit by April Vidal, [facility] on 10/04/23 15:48 UA Specific [place] 1.015 Last Edit by April Vidal [facility] on 15:48 UA Ketone Negative Last Edit by April Vidal [facility] on 10/04/23 15:4 8 UA Bilirubin 0 mg/dL Last Edit by April Vidalpan Vidal [facility] on 10/04/23 15: 48 UA Glucose 0 mg/dL Last Edit by April Vidal [facility] on 10/04/23 15:48 Results Reviewed Results Reviewed: Laboratory Last Values Urine pH (Auto) 6.0 10/04/23 15:47 Specific [place] (Auto) 1.015 10/04/23 15:47 Urine Protein (Auto) 0 mg/dL 10/04/23 15:47 Glucose (UA)(Auto) 0 mg/dL 10/04/23 15:47 Urine Ketones (Auto) Negative 10/04/23 15:47 Urine Blood (Auto) 10 Kaleb/uL 10/04/23 15:47 Urine Nitrite (Auto) Positive 10/04/23 15:47 Urine Bilirubin (Auto) 0 mg/dL 10/04/23 15:47 Urine Urobilinogen (Auto) 6.2 mg/dL 10/04/23 15:47 Leukocyte Esterase (Auto) 15 Lloyd/uL 10/04/23 15:47 Assessment & Plan Assessment & Plan (1) UTI (urinary tract infection): Code(s): N39.0 - Urinary tract infection, site not specified (2) Bladder outlet obstruction: Code(s): N32.0 - Bladder-neck obstruction (3) Incomplete emptying of bladder due to benign prostatic hyperplasia: Code(s): N40.1 - Benign prostatic hyperplasia with lower urinary tract symptoms; R33.9 - Retention of urine, unspecified Plan Treat UTI Trial bethanechol Orders: Orders AMB Urinalysis Automated Today R33.9 - Retention of urine, unspecified Prostate Specific Antigen 2 Months N32.0 - Bladder-neck obstruction AMB Post Void Residual by ultrasound Today R33.9 - Retention of urine, unspecified Urine Culture Today N39.0 - Urinary tract infection, site not specified Medications: New sulfamethoxazole-trimethoprim 800-160 mg (Bactrim DS) 1 tab PO BID 5 days 10 tabs 0RF N32.0 - Bladder-neck obstruction bethanechol chloride 50 mg PO BID 30 days 60 tabs 1RF N32.0 - Bladder-neck obstruction, N39.0 - Urinary tract infection, site not specified Patient Instructions: Imaging studies, laboratory and physical exam results were discussed and reviewed in detail. No major barriers to patient understanding were identified. An opportunity to ask questions regarding the treatment plan was provided. All questions were answered. The patient expressed understanding and agreement with the above treatment plan. The patient is aware they should contact our office by phone for worsening of their current condition or the appearance of new urologic symptoms. Compliance is encouraged with any medications and followup testing that is ordered. It is a privilege to participate in the urologic care of your patient. If you have any questions or concerns regarding treatment for the above conditions, or other urologic issues, please do not hesitate to contact me. The office telephone contact is [phone]. This note is constructed using voice recognition software. While every effort has been made to ensure accuracy nail cutter errors may have been included. Yours sincerely, Dr Jacques Nunez MD, [facility] - Urology Providers of Expert, Compassionate Care for the Genitourinary System Coding Level of Care Code Est Pt Level 4 (68876) Diagnoses UTI (urinary tract infection) N39.0 Bladder outlet obstruction N32.0 Incomplete emptying of bladder due to benign prostatic hyperplasia N40.1; R33.9
== END 2023-10-04 16:18 | disposition home or self-care (01) ==
PROVIDERS: Visit Provider Urology
DX: N39.0 Urinary tract infection, site not specified (principal); N32.0 Bladder-neck obstruction; N40.1 Benign prostatic hyperplasia with lower urinary tract symptoms; R33.9 Retention of urine, unspecified
CPT/HCPCS: 99214

== ENCOUNTER 2023-10-04 15:27 | Outpatient (REF) | payer OTHER, SELFPAY | END 2023-10-04 15:28 | disposition home or self-care (01) | LOC: HO.LAB 15:27 | PROVIDERS: Visit Provider Urology | DX: N39.0 Urinary tract infection, site not specified (principal); N40.1 Benign prostatic hyperplasia with lower urinary tract symptoms; N13.8 Other obstructive and reflux uropathy; R33.8 Other retention of urine; Z87.442 Personal history of urinary calculi; Z79.899 Other long term (current) drug therapy | CPT/HCPCS: 81003; 87086; 87088; 87186; 99212 ==

== ENCOUNTER 2023-11-13 11:17 | Outpatient (REF) | payer OTHER, SELFPAY ==
[2023-11-13 14:47] LABS: Alanine Aminotransferase 21 U/L (0-40); Albumin Level 4.1 g/dL (3.5-5.0); Alkaline Phosphatase 58 U/L (39-117); Anion Gap 12 (12-20); Aspartate Amino Transferase 21 U/L (5-37); Bilirubin Direct 0.6 mg/dL (0.0-0.5); Bilirubin Total 1.4 mg/dL (0.0-1.0); Blood Urea Nitrogen 12 mg/dL (9-16); Calcium 9.9 mg/dL (8.4-10.2); Carbon Dioxide 27 mmol/L (22-29); Chloride 107 mmol/L (96-108); Cholesterol 100 mg/dL (<200); Estimated Glomerular Filt Rate > 60; Glucose Random 143 mg/dL (60-115); HDL Cholesterol 50 mg/dL (>40); LDL Cholesterol Calculated 34 mg/dL (<100); Potassium 3.4 mmol/L (3.3-5.1); Sodium 143 mmol/L (135-145); Total Protein 6.7 g/dL (6.5-8.0); Triglycerides 81 mg/dL (<150)
== END 2023-11-13 11:18 | disposition home or self-care (01) ==
LOC: HO.CHCLDS 11:17
PROVIDERS: Visit Provider Student in an Organized Health Care Education/Training Program
DX: E11.9 Type 2 diabetes mellitus without complications (principal)
CPT/HCPCS: 36415; 80048; 80061; 80076

== ENCOUNTER 2023-11-29 09:36 | Outpatient (REF) | payer OTHER, SELFPAY ==
[2023-11-29 11:39] LABS: Prostate Specific Antigen 0.75 ng/mL (<0.05-4.0)
== END 2023-11-29 09:37 | disposition home or self-care (01) ==
LOC: HO.LAB 09:36
PROVIDERS: PCP Student in an Organized Health Care Education/Training Program; Visit Provider Urology
DX: N32.0 Bladder-neck obstruction (principal); Z12.5 Encounter for screening for malignant neoplasm of prostate
CPT/HCPCS: 36415; 84153

== ENCOUNTER 2023-12-05 15:04 | Outpatient (AMB) | payer OTHER, SELFPAY ==
--- NOTE | 2023-12-05 15:11 | A.OFFVIS_ITS ---
Intake Visit Reasons: 2m/PSA/PVR(psa?) Allergies No Known Allergies [No Known Allergies*] Allergy (Verified 10/04/23 15:36) Medication List - Last Reconciled 12/05/23 by Jacques Nunez MD albuterol sulfate 90 mcg/actuation 2 puffs PO QID albuterol sulfate mg inhalation aspirin 1 tab PO DAILY bethanechol chloride 50 mg PO BID 90 days blood pressure monitor (Blood Pressure Kit) As directed blood sugar diagnostic (FreeStyle Lite Strips) As directed cetirizine 10 mg PO DAILY cilostazol 50 mg PO clobetasol 0.05% grams topical BID clotrimazole-betamethasone 1-0.05 % appl topical glipizide 10 mg PO hydrochlorothiazide 25 mg PO DAILY ibuprofen 0 mg PO lancets (TRUEplus Lancets) As directed lidocaine 5% topical metformin 1,000 mg PO BID Micardis (telmisartan) 40 mg PO DAILY NS nitroglycerin 0.4 mg sublingual nitroglycerin 0.4 mg sublingual Q5M PRN rosuvastatin 40 mg PO BEDTIME sulfamethoxazole-trimethoprim 800-160 mg (Bactrim DS) 1 tab PO BID 5 days tamsulosin 0.8 mg (2 x 0.4 mg) PO BEDTIME 90 days HPI Comments Details: Branden is a very pleasant [place] male. He is a patient of Dr. Saldivar. He is seen for the following urologic conditions - bladder outlet obstruction - incomplete bladder emptying PVR down with bethanechol and tamsulosin Continue Six-month follow-up Lower urinary tract symptoms primarily incomplete emptying Longstanding Current treatment tamsulosin 0.8 mg High PVR 120 cc Office investigations - 08/31 cystoscopy with open bladder neck PSA - 11/30 0.8 Background diabetes HBA1c 8.4% Nephrolithiasis Prior diagnosis of stones with ESWL in the past No recent imaging [facility] Medical History Diabetes mellitus Hyperlipidemia HTN (hypertension) PVD (peripheral vascular disease) CAD (coronary artery disease) Surgical History History of gastric surgery Hx of CABG Family History Father No problems noted. Mother No problems noted. Sister Cancer Social History Patient Tobacco Use Status: Never used Tobacco Review of Systems Const Denies chills and Denies fever(s) Card Reports no additional complaints and Denies syncope Resp Denies cough GI Denies abdominal pain and Denies heartburn Reports as per HPI and Denies change in libido Neuro Denies syncope Psych Denies change in libido Endo Denies change in libido Physical Exam Const General: cooperative, healthy appearing, comfortable and no acute distress Orientation/consciousness: patient oriented x3 HEENT Face and sinus: Yes normal facial exam Mouth: moist mucous membranes Neck Neck: Yes normal visual inspection, Yes full ROM and Yes trachea midline Chest Chest palpation & inspection: normal inspection of the chest Resp Effort & Inspection: normal respiratory effort, able to speak in complete sentences and no respiratory distress GI Inspection: Yes normal to inspection Back/Spine/Pelvis Cervical Spine: normal cervical lordosis Thoracic/Lumbar Spine: thoracic and lumbar spine normal to inspection Skin General skin exam: no rashes or lesions noted Neuro General: patient oriented x3, gait normal, tone normal and moves all extremities Extrem General: Yes normal to inspection and Yes capillary refill normal Office Procedures Post Void Residual Post Residual Void Post Void Residual (PVR): 234 [id number] Void Residual by ultrasound Assessment & Plan Assessment & Plan (1) Chronic UTI (urinary tract infection): Code(s): N39.0 - Urinary tract infection, site not specified Category: Medical (2) Incomplete emptying of bladder due to benign prostatic hyperplasia: Code(s): N40.1 - Benign prostatic hyperplasia with lower urinary tract symptoms; R33.9 - Retention of urine, unspecified Category: Medical Plan Six-month follow-up Orders: Orders AMB Post Void Residual by ultrasound 12/05/23 N40.1 - Benign prostatic hyperplasia with lower urinary tract symptoms, R33.9 - Retention of urine, unspecified Medications: Changed From bethanechol chloride 50 mg PO BID 30 days 60 tabs 1RF N32.0 - Bladder-neck obstruction, N39.0 - Urinary tract infection, site not specified To bethanechol chloride 50 mg PO BID 180 tabs 1RF 90 days N32.0 - Bladder-neck obstruction, N39.0 - Urinary tract infection, site not specified Patient Instructions: Imaging studies, laboratory and physical exam results were discussed and reviewed in detail. No major barriers to patient understanding were identified. An opportunity to ask questions regarding the treatment plan was provided. All questions were answered. The patient expressed understanding and agreement with the above treatment plan. The patient is aware they should contact our office by phone for worsening of t heir current condition or the appearance of new urologic symptoms. Compliance is encouraged with any medications and followup testing that is ordered. It is a privilege to participate in the urologic care of your patient. If you have any questions or concerns regarding treatment for the above conditions, or other urologic issues, please do not hesitate to contact me. The office telephone contact is [phone]. This note is constructed using voice recognition software. While every effort has been made to ensure accuracy application spec errors may have been included. Yours sincerely, Dr Jacques Nunez MD, [facility] - Urology Providers of Expert, Compassionate Care for the Genitourinary System Coding Level of Care Code Est Pt Level 3 (26113) Diagnoses Chronic UTI (urinary tract infection) N39.0 Incomplete emptying of bladder due to benign prostatic hyperplasia N40.1; R33.9 CPT Codes Post Residual Void - PVR CPT Code: 87539-Refu Void Residual by ultrasound ([id number])
== END 2023-12-05 15:57 | disposition home or self-care (01) ==
PROVIDERS: PCP Student in an Organized Health Care Education/Training Program; Visit Provider Urology
DX: N39.0 Urinary tract infection, site not specified (principal); N40.1 Benign prostatic hyperplasia with lower urinary tract symptoms; R33.9 Retention of urine, unspecified
CPT/HCPCS: 99213

== ENCOUNTER → 2023-12-05 15:04 | Outpatient (BNVA) | payer OTHER, SELFPAY | PROVIDERS: PCP Student in an Organized Health Care Education/Training Program; Visit Provider Urology | DX: N40.1 Benign prostatic hyperplasia with lower urinary tract symptoms (principal); N13.8 Other obstructive and reflux uropathy; R33.9 Retention of urine, unspecified | CPT/HCPCS: 51798; 99212 ==

== ENCOUNTER 2024-03-28 12:26 | Outpatient (AMB) | payer MEDICARE, SELFPAY ==
[2024-03-28 12:33] VITALS: BP 118/64; PULSE 64; BMI 25.2
--- NOTE | 2024-03-28 12:33 | MHC.OFFVIS ---
Vital Signs 03/28/24 12:33 Height 5 ft 7 in Weight 160 lb 14.999 oz BMI 25.2 BP 118/64 Blood Pressure Location Lt brachial Position Sitting Pulse 64 Intake Visit Reasons: 1 yr f/up Intake Note: 1 year follow-up with ekg feeling good Contract Technical Writer Required: Yes Contract Technical Writer Services: Contract Technical Writer Offered & Declined Fish House Worker: Fish House Worker Present Accompanied by: Friend Allergies No Known Allergies [No Known Allergies*] Allergy (Verified 10/04/23 15:36) Medication List - Last Reconciled 03/28/24 by Norman Garcia MD aspirin 1 tab PO DAILY bethanechol chloride 50 mg PO BID 90 days blood pressure monitor (Blood Pressure Kit) As directed blood sugar diagnostic (FreeStyle Lite Strips) As directed cilostazol 50 mg PO clobetasol 0.05% grams topical BID clotrimazole-betamethasone 1-0.05 % appl topical glipizide 10 mg PO hydrochlorothiazide 25 mg PO DAILY ibuprofen 0 mg PO lancets (TRUEplus Lancets) As directed lidocaine 5% topical metformin 1,000 mg PO BID nitroglycerin 0.4 mg sublingual rosuvastatin 40 mg PO BEDTIME tamsulosin 0.8 mg (2 x 0.4 mg) PO BEDTIME 90 days HPI Comments Details: Branden comes for follow-up. He has been doing very well from cardiac perspective. Recently visited his home country in [place] and was active there. He denies any symptoms of exertional chest pain or shortness of breath. Remains fairly active although does not go out for walks. Takes all his medications regularly. Last LDL of 34 mg/dL. Denies any prolonged palpitation irregular heartbeat, lightheadedness, syncope. No heart failure symptoms. [facility] Medical History Diabetes mellitus Hyperlipidemia HTN (hypertension) PVD (peripheral vascular disease) CAD (coronary artery disease) Surgical History History of gastric surgery Hx of CABG Family History Father No problems noted. Mother No problems noted. Sister Cancer Social History Patient Tobacco Use Status: Never used Tobacco Review of Systems Const Denies chills, Denies daytime sleepiness, Denies fatigue, Denies fever(s), Denies frequent falls, Denies poor appetite, Denies snoring, Denies stops breathing during sleep, Denies weakness, Denies weight gain and Denies weight loss Eyes Denies loss of vision ENT Denies dizziness and Denies hearing loss Card Denies chest pain, Denies claudication, Denies leg edema, Denies lightheadedness, Denies palpitations, Denies dyspnea, Denies dyspnea on exertion and Denies orthopnea Resp Denies cough, Denies excessive phlegm production, Denies dyspnea, Denies dyspnea on exertion, Denies snoring and Denies wheezing GI Denies abdominal pain, Denies hematochezia, Denies change in bowel habits, Denies nausea and Denies vomiting Denies dysuria and Denies urinary frequency Musc Denies arthralgias, Denies muscle weakness, Denies numbness and Denies other (frequent falls) Skin/Breast Denies nail changes and Denies rash Neuro Denies Abnormal speech present, Denies dizziness, Denies frequent falls, Denies loss of vision, Denies memory loss, Denies numbness and Denies weakness Psych Denies depression and Denies memory loss Endo Denies fatigue and Denies palpitations Brett/Lymph Reports easy bruising and Reports other (anemia) Aller/Immun Denies wheezing Physical Exam Vital Signs: Last Vital Signs Pulse 64 03/28/24 12:33 BP 118/64 03/28/24 12:33 BMI result Body Mass Index 25.2 Const General: cooperative, comfortable, no acute distress, alert and awake Nutritional Appearance: average body habitus Orientation/consciousness: patient oriented x3 Limitations: no limitations Neck Neck: Yes trachea midline, Yes supple and Yes no JVD Carotids: no bruits Chest Breast/axilla palpation: other (Well-healed sternotomy scar) Resp Effort & Inspection: normal respiratory effort Auscultation: clear to auscultation bilaterally Cardio Jugular venous distension: no JVD Palpation: normal PMI Rate: regular rate Rhythm: regular rhythm Heart sounds: S1 normal heart sound present, S2 normal heart sound present, no click, no gallops, Murmur heart sound present systolic early and no rubs Peripheral pulses: other (Reduced distal pulses) GI Auscultation: normal bowel sounds Skin General skin exam: no rashes or lesions noted Neuro General: patient oriented x3 and no focal motor deficits Speech: No Abnormal speech present Extrem General: Yes no clubbing, cyanosis or edema Office Procedures EKG Details: EKG shows normal sinus rhythm with diffuse ST T wave changes anterolateral and inferior leads, unchanged from before suggestive of repolarization abnormality most likely from basal asymmetric septal hypertrophy [id number], Complete Assessment & Plan Assessment & Plan (1) CAD (coronary artery disease): Code(s): I25.10 - Atherosclerotic heart disease of kaibab coronary artery without angina pectoris Category: Medical Plan: CAD with remote coronary artery bypass grafting with myocardial perfusion imaging last year within normal limits with no current symptoms suggestive of angina. Continue aggressive medical therapy. Has done very well with surgical revascularization. Continue low-dose aspirin therapy. Continue high-intensity statin therapy with target goal LDL well achieved a 34 mg/dL. Continue aggressive diabetes management goal hemoglobin A1c less than 7% being pursue through office. Continue aggressive blood pressure control. Encouraged to increase activity level and performed balance exercises. (2) HTN (hypertension): Code(s): I10 - Essential (primary) hypertension Category: Medical Plan: Hypertension which is currently well optimized advised to monitor blood pressure at home maintain a log. Goal blood pressure less than 130/84. Low-salt diet was discussed. Continue to exercise and participate in regular physical activity. Will follow up in the clinic in 1 year's time, sooner p.r.n.. Thank you for allowing me to partake in his care Coding Level of Care Code Est Pt Level 4 (29968) Diagnoses CAD (coronary artery disease) I25.10 HTN (hypertension) I10 CPT Codes EKG - CPT: 90507-[id number], Complete ([id number])
== END 2024-03-28 12:53 | disposition home or self-care (01) ==
PROVIDERS: PCP Student in an Organized Health Care Education/Training Program; Visit Provider Internal Medicine Cardiovascular Disease
DX: I25.10 Atherosclerotic heart disease of native coronary artery without angina pectoris (principal); I10 Essential (primary) hypertension
CPT/HCPCS: 93010; 99214

== ENCOUNTER → 2024-03-28 12:26 | Outpatient (BNVA) | payer MEDICARE, SELFPAY | PROVIDERS: PCP Student in an Organized Health Care Education/Training Program; Visit Provider Internal Medicine Cardiovascular Disease | DX: I25.10 Atherosclerotic heart disease of native coronary artery without angina pectoris (principal); I10 Essential (primary) hypertension | CPT/HCPCS: 93005; 99212 ==

== ENCOUNTER 2024-05-23 09:27 | Outpatient (REF) | payer OTHER, SELFPAY ==
[2024-05-23 14:31] LABS: Estimated Average Glucose 192 mg/dL; Hemoglobin A1C 239.8566 umol/L; Hemoglobin A1c % 8.3 % (<6.0); Total Hemoglobin (HGBA1C) 3556.9825 umol/L
[2024-05-23 16:27] LABS: Alanine Aminotransferase 24 U/L (0-40); Albumin Level 4.3 g/dL (3.5-5.0); Alkaline Phosphatase 63 U/L (39-117); Anion Gap 13 (12-20); Aspartate Amino Transferase 26 U/L (5-37); Bilirubin Direct 0.5 mg/dL (0.0-0.5); Bilirubin Total 1.7 mg/dL (0.0-1.0); Blood Urea Nitrogen 18 mg/dL (9-16); Calcium 9.8 mg/dL (8.4-10.2); Carbon Dioxide 29 mmol/L (22-29); Chloride 107 mmol/L (96-108); Cholesterol 114 mg/dL (<200); Estimated Glomerular Filt Rate > 60; Glucose Random 152 mg/dL (60-115); HDL Cholesterol 59 mg/dL (>40); LDL Cholesterol Calculated 42 mg/dL (<100); Potassium 4.2 mmol/L (3.3-5.1); Sodium 145 mmol/L (135-145); Total Protein 6.9 g/dL (6.5-8.0); Triglycerides 67 mg/dL (<150)
== END 2024-05-23 09:28 | disposition home or self-care (01) ==
LOC: HO.CHCLDS 09:27
PROVIDERS: PCP Student in an Organized Health Care Education/Training Program; Visit Provider Student in an Organized Health Care Education/Training Program
DX: M25.551 Pain in right hip (principal); E78.00 Pure hypercholesterolemia, unspecified; I10 Essential (primary) hypertension; E11.9 Type 2 diabetes mellitus without complications
CPT/HCPCS: 36415; 73502; 80048; 80061; 80076; 83036

== ENCOUNTER 2024-06-04 10:27 | Outpatient (AMB) | payer OTHER, SELFPAY ==
--- NOTE | 2024-06-04 10:31 | A.OFFVIS_ITS ---
Intake Visit Reasons: 6m/PVR Intake Note: Patient is present for 6M/PVR Urology Medication:TAMSULOSIN Antibiotic Allergy:NONE Blood Thinner:ASPIRIN TODAYS PVR:0ML'S Bookseamer Blindstitch Required: No Allergies No Known Allergies [No Known Allergies*] Allergy (Verified 06/04/24 10:32) HPI Comments Details: Branden is a very pleasant [place] male. He is a patient of Dr. Saldivar. He is seen for the following urologic conditions - bladder outlet obstruction - incomplete bladder emptying Six-month follow-up Response to bethanechol plus tamsulosin UA today 3+ glucose Does not appear to be on any SGLT2 Last HbA1c 2 months ago 8.6% Appears to require more intensive diabetic management Lower urinary tract symptoms primarily incomplete emptying Longstanding Current treatment tamsulosin 0.8 mg High PVR 120 cc Office investigations - 08/31 cystoscopy with open bladder neck PSA - 11/30 0.8 Background diabetes HBA1c 8.4% Nephrolithiasis Prior diagnosis of stones with ESWL in the past No recent imaging PFSH Medical History Diabetes mellitus Hyperlipidemia HTN (hypertension) PVD (peripheral vascular disease) CAD (coronary artery disease) Surgical History History of gastric surgery Hx of CABG Family History Father No problems noted. Mother No problems noted. Sister Cancer Social History Patient Tobacco Use Status: Never used Tobacco Review of Systems Const Denies chills and Denies fever(s) Card Reports no additional complaints and Denies syncope Resp Denies cough GI Denies abdominal pain and Denies heartburn Reports as per HPI and Denies change in libido Neuro Denies syncope Psych Denies change in libido Endo Denies change in libido Physical Exam Const General: cooperative, healthy appearing, comfortable and no acute distress Orientation/consciousness: patient oriented x3 HEENT Face and sinus: Yes normal facial exam Mouth: moist mucous membranes Neck Neck: Yes normal visual inspection, Yes full ROM and Yes trachea midline Chest Chest palpation & inspection: normal inspection of the chest Resp Effort & Inspection: normal respiratory effort, able to speak in complete sentences and no respiratory distress GI Inspection: Yes normal to inspection Back/Spine/Pelvis Cervical Spine: normal cervical lordosis Thoracic/Lumbar Spine: thoracic and lumbar spine normal to inspection Skin General skin exam: no rashes or lesions noted Neuro General: patient oriented x3, gait normal, tone normal and moves all extremities Extrem General: Yes normal to inspection and Yes capillary refill normal Office Procedures Post Void Residual Post Residual Void Post Void Residual (PVR): 0 [id number] Void Residual by ultrasound Results AMB Urinalysis, Automated UA Leukoctes 0 Lloyd/uL Last Edit by NANCY Cabello on 06/04/24 10:49 UA Nitrite Positive Last Edit by Giovana Moore CCM on 06/04/24 10:49 UA Urobilinogen 0.2 mg/dL Last Edit by NANCY Cabello on 06/04/24 10:4 9 UA Protein 0 mg/dL Last Edit by Giovana Moore CCM on 06/04/24 10:49 UA pH 5.5 Last Edit by Giovana Moore CCM on 06/04/24 10:49 UA Blood 10 Kaleb/uL Last Edit by Giovana Moore CCM on 06/04/24 10:49 UA Specific Arnett 1.025 Last Edit by NANCY Cabello on 06/04/24 10: 49 UA Ketone Negative Last Edit by Giovana Moore CCM on 06/04/24 10:49 UA Bilirubin 0 mg/dL Last Edit by Giovana Moore CCM on 06/04/24 10:49 UA Glucose 1000 mg/dL Last Edit by Giovana Moore CCM on 06/04/24 10:49 Results Reviewed Results Reviewed: Laboratory Last Values Urine pH (Auto) 5.5 06/04/24 10:48 Specific Arnett (Auto) 1.025 06/04/24 10:48 Urine Protein (Auto) 0 mg/dL 06/04/24 10:48 Glucose (UA)(Auto) 1000 mg/dL 06/04/24 10:48 Urine Ketones (Auto) Negative 06/04/24 10:48 Urine Blood (Auto) 10 Kaleb/uL 06/04/24 10:48 Urine Nitrite (Auto) Positive 11/26/24 10:48 Urine Bilirubin (Auto) 0 mg/dL 06/04/24 10:48 Urine Urobilinogen (Auto) 0.2 mg/dL 06/04/24 10:48 Leukocyte Esterase (Auto) 0 Lloyd/uL 06/04/24 10:48 Assessment & Plan Assessment & Plan (1) Bladder outlet obstruction: Code(s): N32.0 - Bladder-neck obstruction Category: Medical (2) Chronic UTI (urinary tract infection): Code(s): N39.0 - Urinary tract infection, site not specified Category: Medical (3) Incomplete emptying of bladder due to benign prostatic hyperplasia: Code(s): N40.1 - Benign prostatic hyperplasia with lower urinary tract symptoms; R33.9 - Retention of urine, unspecified Category: Medical Plan Six-month follow-up PVR and UA PSA Orders: Orders AMB Urinalysis Automated Today Z13.9 - Encounter for screening, unspecified Patient Instructions: Imaging studies, laboratory and physical exam results were discussed and reviewed in detail. No major barriers to patient understanding were identified. An opportunity to ask questions regarding the treatment plan was provided. All questions were answered. The patient expressed understanding and agreement with the above treatment plan. The patient is aware they should contact our office by phone for worsening of their current condition or the appearance of new urologic symptoms. Compliance is encouraged with any medications and followup testing that is ordered. It is a privilege to participate in the urologic care of your patient. If you have any questions or concerns regarding treatment for the above conditions, or other urologic issues, please do not hesitate to contact me. The office telephone contact is [phone]. This note is constructed using voice recognition software. While every effort has been made to ensure accuracy director clinical research errors may have been included. Yours sincerely, Dr Jacques Nunez MD, [facility] - Urology Providers of Expert, Compassionate Care for the Genitourinary System Coding Level of Care Code Est Pt Level 3 (20063) Diagnoses Bladder outlet obstruction N32.0 Chronic UTI (urinary tract infection) N39.0 Incomplete emptying of bladder due to benign prostatic hyperplasia N40.1; R33.9 CPT Codes Post Residual Void - PVR CPT Code: 36239-Xulg Void Residual by ultrasound ([id number])
== END 2024-06-04 11:25 | disposition home or self-care (01) ==
PROVIDERS: PCP Student in an Organized Health Care Education/Training Program; Visit Provider Urology
DX: N32.0 Bladder-neck obstruction (principal); N39.0 Urinary tract infection, site not specified; N40.1 Benign prostatic hyperplasia with lower urinary tract symptoms; R33.9 Retention of urine, unspecified; Z13.9 Encounter for screening, unspecified
CPT/HCPCS: 99213

== ENCOUNTER → 2024-06-04 10:27 | Outpatient (BNVA) | payer OTHER, SELFPAY | PROVIDERS: PCP Student in an Organized Health Care Education/Training Program; Visit Provider Urology | DX: N40.1 Benign prostatic hyperplasia with lower urinary tract symptoms (principal); N32.0 Bladder-neck obstruction; N39.0 Urinary tract infection, site not specified; R33.8 Other retention of urine | CPT/HCPCS: 51798; 81003; 99212 ==

== ENCOUNTER 2024-08-15 09:47 | Outpatient (REF) | payer OTHER, SELFPAY ==
--- OUTSIDE RECORDS SUMMARY | 2024-08-16 10:34 | XMS_ITS | Encounter Summary ---
Author Organization [employer] Address [address] [facility] 7t [place] [address] Care Team Providers Care Bladder Blower Name Role Phone Kindra Saldivar MD Primary Care Provider [phone] Reason for Visit * Reason Comments Med Refill Encounter Details Date Type Department Care Team ([facility] st Contact Info) Description 12/31/2023 Refill [facility] CH[facility] MED & PEDS [address] [place], [place] [phone] Jermain Monsalve MD [address] [place] [address] Eczema, unspecified type Social History Tobacco Use Types Packs/Day Years Used Date Smoking Tobacco: Never Smokeless Tobacco: Never Alcohol Use Standard Drinks/Week Comments Never 0 (1 standard drink = 0.6 oz pur e alcohol) Alcohol Answer Date Recorded Frequency of Alcohol Consumption Not on file 06/13/2023 Average Number of Drinks Not on file 023 Frequency of Binge Drinking Not on file 11/2022 Score 0 06/13/2023 Depression Answer Date Recorded Patient Health Questionnaire-9 Score 0 06/13/2023 Patient Health Questionnaire-9 Score 0 06/13/2023 Last PHQ-9: Questionnaire Data Not on file 1 08/14/2022 Housing Stability Answer Date Recorded What is your housing situation today? I have radha morton 06/13/[address] you li ve. Do you have problems with any of the following? None of the above 06/13/2023 Food Insecurity Answer Date Recorded Within the past 12 months, y ou worried that your food would run out before you got money to buy more: Never True 06/13/2023 Within the past 12 months,th e food you bought just didn't last and you didn't have enough money to get more: Never True 11/2022 Transportation Answer Date Recorded In the past 12 months, has l ack of transportation kept you from medical appts, meetings, work or from getting things needed for daily living? No 06/13/2023 Utilities Answer Date Recorded In the past 12 months, has t he electric, gas, oil or water company threatened to shut off services in your home? No 06/13/2023 Depression Answer Date Recorded Patient Health Questionnaire-2 Score 0 06/13/2023 Sex and Gender Information Value Date Recorded Sex Assigned at Male 05/09/2022 10:20 AM EDT Legal Sex Male 10:20 AM EDT Gender Identity Male 05/09/2022 10:20 AM EDT Sexual Orientation Straight 05/09/2022 10 :20 AM EDT documented as of this encounter Plan of Treatment Not on file documented as of this encounter Visit Diagnoses Diagnosis Eczema, unspecified type documented in this encounter Additional Health Concerns Assessment Noted Time PHQ-9 Depression Total Score: 0 06/13/20 11:29 AM EST documented as of this encounter Care Teams Bladder Blower Relationship Specialty Start Date End Date Kindra Saldivar MD [address] [place] [id number] PCP - General Family Medicine 06/22/12 documented as of this encounter
--- OUTSIDE RECORDS SUMMARY | 2024-08-16 10:34 | XMS_ITS | Encounter Summary ---
Author Organization [employer] Address [address] [facility] 7t [place] [address] Care Team Providers Care Hop Grower Name Role Phone Kindra Saldivar MD Primary Care Provider [phone] Reason for Visit * Reason Onset Date Comments Med Refill 07/30/2024 Encounter Details Date Type Department Care Team ([facility] Contact Info) Description 07/30/2024 Refill [facility] CHC MED & PEDS [address] [place], [place] [phone] Kindra Saldivar MD [address] [place] [address] Eczema, unspecified type Social History Tobacco Use [...] Time PHQ-9 Depression Total Score: 0 06/13/20 23 11:29 AM EST documented as of this encounter Care Teams Hop Grower Relationship Specialty Start Date End Date Kindra Saldivar MD [address] [place] [phone] PCP - General Family Medicine 06/22/12 documented as of this encounter
--- OUTSIDE RECORDS SUMMARY | 2024-08-16 10:34 | XMS_ITS | Encounter Summary ---
Author Organization [employer] Address [address] [facility] 7t [place] [address] Care Team Providers Care Women Nurse Name Role Phone Kindra Saldivar MD Primary Care Provider [phone] Reason for Visit * Reason Comments Med Refill Encounter Details Date Type Department Care Team ([facility] st Contact Info) Description 05/03/2023 Refill [facility] CHC MED & PEDS [address] [place], [place] [phone] Kindra Saldivar MD [address] [place] [address] Social History Tobacco Use Types Packs/Day Years Used Date Smoking Tobacco: Never Smokeless Tobacco: Never Alcohol Use Standard Drinks/Week Comments Never 0 (1 standard drink = 0.6 oz pur e alcohol) Sex and Gender Information Value Date Recorded Sex Assigned at Male 05/09/2022 10:20 AM EDT Legal Sex Male 10:20 AM EDT Gender Identity Male 05/09/2022 10:20 AM EDT Sexual Orientation Straight 05/09/2022 10 :20 AM EDT documented as of this encounter Plan of Treatment Not on file documented as of this encounter Visit Diagnoses Not on filedocumented in this encounter Care Teams Women Nurse Relationship Specialty Start Date End Date Kindra Saldivar MD [address] [place] [phone] PCP - General Family Medicine 06/22/12 documented as of this encounter
--- OUTSIDE RECORDS SUMMARY | 2024-08-16 10:34 | XMS_ITS | Encounter Summary ---
Author Organization [employer] Address [address] [facility] [address] 7[address] [place] [address] Care Team Providers Care Roller Mill Tender Name Role Phone Kindra Saldivar MD Primary Care Provider [phone] Encounter Details Date Type Department Care Team (Late st Contact Info) Description 06/13/2022 Abstract [facility] CHC MED & PEDS [address] [place] [address] ProviderJose MD Social History Tobacco Use Types Packs/Day Years Used Date Smoking Tobacco: Never Assessed Sex and Gender Information Value Date Recorded Sex Assigned at Male 05/09/2022 10:20 AM EDT Legal Sex Male 10:20 AM EDT Gender Identity Male 05/09/2022 10:20 AM EDT Sexual Orientation Straight 05/09/2022 10 :20 AM EDT documented as of this encounter Plan of Treatment Not on file documented as of this encounter Visit Diagnoses Not on filedocumented in this encounter Care Teams Roller Mill Tender Relationship Specialty Start Date End Date Kindra Saldivar MD [address] [place] [id number] PCP - General Family Medicine 06/22/12 documented as of this encounter
--- OUTSIDE RECORDS SUMMARY | 2024-08-16 10:34 | XMS_ITS | Encounter Summary ---
Author Organization [employer] Address [address] [facility] [address] 7[address] [place] [address] Care Team Providers Care Brick Wheeler Name Role Phone Kindra Saldivar MD Primary Care Provider [phone] Reason for Visit * Reason Comments Med Refill Encounter Details Date Type Department Care Team ([facility] Contact Info) Description 05/23/[address] [facility] CHC MED & PEDS [address] [place], [place] [phone] Kindra Saldivar MD [address] [place] [address] Social History Tobacco Use Types Packs/Day Years [...] Diagnoses Not on filedocumented in this encounter Additional Health Concerns Assessment Noted Time PHQ-9 Depression Total Score: 0 06/13/20 23 11:29 AM EST documented as of this encounter Care Teams Brick Wheeler Relationship Specialty Start Date End Date Kindra Saldivar MD [address] [place] [address] PCP - General Family Medicine 06/22/12 documented as of this encounter
--- OUTSIDE RECORDS SUMMARY | 2024-08-16 10:34 | XMS_ITS | Encounter Summary ---
Author Organization [employer] Address [address] [facility] [address] [place] [address] Care Team Providers Care Wrist Closer Name Role Phone Kindra Saldivar MD Primary Care Provider [phone] Encounter Details Date Type Department Care Team ([facility] st Contact Info) Description 07/23/2024 Telephone C CHC MED & PEDS [address] [place], [place] [phone] Kindra Saldivar MD [address] [place] [address] Social History Tobacco Use Types Packs/Day Years [...] AM EDT documented as of this encounter Miscellaneous Notes * Telephone Encounter - Martínez Portillo RN - 07/23/2024 2:30 PM EST TC placed to [email or web address] for Luxembourgish interpretation. Spoke with ID # [id number] who placed outgoing call to pt, no answer, VM left in Luxembourgish to RTC. * Telephone Encounter - Martínez Portillo RN - 07/23/2024 2:30 PM EST ----- Message from Kindra Saldivar MD sent at 07/23/2024 11:24 AM EST ----- Xray shows severe arthtitis Referred to ortho documented in this encounter Plan of Treatment Not on file documented as of this encounter Visit Diagnoses Not on filedocumented in this encounter Additional Health Concerns Assessment Noted Time PHQ-9 Depression Total Score: 0 06/13/20 23 11:29 AM EST documented as of this encounter Care Teams Wrist Closer Relationship Specialty Start Date End Date Kindra Saldivar MD [address] [place] [id number] PCP - General Family Medicine 06/22/12 documented as of this encounter
--- OUTSIDE RECORDS SUMMARY | 2024-08-16 10:34 | XMS_ITS | Encounter Summary ---
Author Organization [employer] Address [address] [facility] [address] 7[address] [place] [address] Care Team Providers Care Powder Worker Name Role Phone Kindra Saldivar MD Primary Care Provider [phone] Reason for Visit * Reason Comments Med Refill Encounter Details Date Type Department Care Team ([facility] st Contact Info) Description 10/30/2023 Refill [facility] CHC MED & PEDS [address] [place], [place] [phone] Kindra Saldivar MD [address] [place] [address] Type 2 diabetes mellitus without complications (CMS/[facility]) Social History Tobacco Use Types Packs/Day Years [...] as of this encounter Visit Diagnoses Diagnosis Type 2 diabetes mellitus without complications (CMS/HCC) documented in this encounter Additional Health Concerns Assessment Noted Time PHQ-9 Depression Total Score: 0 06/13/20 23 11:29 AM EST documented as of this encounter Care Teams Powder Worker Relationship Specialty Start Date End Date Kindra Saldivar MD [address] [place] [phone] PCP - General Family Medicine 06/22/12 documented as of this encounter
--- OUTSIDE RECORDS SUMMARY | 2024-08-16 10:34 | XMS_ITS | Clinical Summary ---
Author Organization [employer] Address [address] [facility] [address] [place] [address] Care Team Providers Care Falsework Builder Name Role Phone iKndra Saldivar MD Primary Care Provider [phone] Allergies No known active allergies Medications cetirizine (ZyrTEC) 10 MG tablet Take 10 mg by mouth 1 (one) time each day. 01/26/20 22 Active valACYclovir (Valtrex) 1 g tablet TAKE TWO TABLETS EVERY TWELVE HOURS FOR TWO DAYS NEEDED COLD SORES 08/20/19 22 Active tamsulosin (Flomax) 0.4 MG 24 hr capsule Take 2 capsules (0.8 mg) by mouth at bedtime. 30 capsule 11 11/08/19 23 Active albuterol 108 (90 Base) MCG/ACT inhaler Inhale 2 puffs every 4 (four) hours if needed for wheezing. INHALE TWO PUFFS BY MOUTH FOUR TIMES DAILY NEEDED 18 g 11 01/07/20 23 Active diphenhydrAMINE (BENADryl) 25 MG tablet Take 1 tablet (25 mg) by mouth if needed at bedtime for itching. 90 tablet 3 03/07/20 23 Active azelastine (Astelin) 0.1 % nasal spray Administer 1 spray into each nostril 2 times daily. Use in each nostril as directed 30 mL 12 03/07/20 23 Active triamcinolone (Kenalog) 0.1 % creamIndications :Eczema, unspecified type APPLY A THIN LAYER TO THE AFFECTED AREA(s) TWICE DAILY 15 g 11 06/27/20 23 Active albuterol (2.5 MG/3ML) 0.083% nebulizer solution INHALE ONE AMPULE USING A NEBULIZER FOUR TIMES DAILY NEEDED 90 mL 3 07/05/20 23 Active cilostazol (Pletal) 50 MG tabletIndication s:Atherosclerosi s of coronary artery, unspecified vessel or lesion type, unspecified whether angina present, unspecified whether [place] or transplanted heart TAKE ONE TABLET BY MOUTH TWICE DAILY ONE-HALF HOUR BEFORE OR TWO HOURS AFTER BREAKFAST AND dinner 60 tablet 9 08/30/19 Active TRUEplus Lancets 33G misc TEST BLOOD SUGAR TWICE DAILY 100 each 10/30/19 Active nitroglycerin (Nitrostat) 0.4 MG SL tabletIndication s:Hypertension, unspecified type DISSOLVE 1 TABLET UNDER THE TONGUE EVERY 5 MINUTES NEEDED FOR CHEST PAIN. DO NOT EXCEED A TOTAL OF 3 DOSES IN 15 MINUTES. 25 tablet 1 11/06/19 Active Blood Glucose Monitoring Suppl (Auspherix Lite) w/Device kit Use to test blood sugar 2 times daily 1 kit 11/28/19 Active empagliflozin (Jardiance) 10 MG Take 1 tablet (10 mg) by mouth Once per day. 90 tablet 11/28/19 24 2024 Active rosuvastatin (Crestor) 40 MG tablet Take 1 tablet (40 mg) by mouth at bedtime. 90 tablet 11/29/19 24 2024 Active lidocaine (Lidoderm) 5 % patch Apply 1 patch topically Once per day. Remove & discard patch within 12 hours or as directed by MD. 30 patch 11/29/19 24 2024 Active metFORMIN (Glucophage) 1000 MG tablet TAKE 1 TABLET BY MOUTH TWICE A DAY WITH BREAKFAST AND EVENING MEALS. 180 tablet 12/29/19 Active glipiZIDE (Glucotrol) 10 MG tablet TAKE TWO TABLETS TWICE DAILY BEFORE MEALS 360 tablet 01/23/20 Active telmisartan (MIcarDIS) 40 MG tablet Take 1 tablet (40 mg) by mouth Once per day. 90 tablet 03/25/20 24 2024 Active meloxicam (Mobic) 7.5 MG tablet Take 1 tablet (7.5 mg) by mouth Once per day. 30 tablet 05/23/20 24 2024 Active Diclofenac Sodium 1 % gel Apply 4 g topically if needed in the morning and at bedtime (as needed for moderate pain). 50 g 1 05/23/20 Active Blood Pressure kit Check blood pressure daily 1 kit 05/23/20 24 Active FREESTYLE LITE test stripIndications :Type 2 diabetes mellitus without complications ([facility]) TEST BLOOD SUGAR TWICE DAILY 50 strip 11 06/24/20 24 Active hydroCHLOROthiaz anival (HYDRODiuril) 25 MG tabletIndication s:Hypertension, unspecified type TAKE ONE TABLET BY MOUTH EVERY MORNING 90 tablet 3 06/24/20 24 Active Aspirin Low Dose 81 MG chewable tablet Chew 1 tablet (81 mg) Once per day. 90 tablet 1 06/28/20 24 2024 Active clotrimazole-bet amethasone (Lotrisone) creamIndications :Eczema, unspecified type APPLY TO THE AFFECTED AREA(S) TWICE DAILY 45 g 07/30/19 25 Active clotrimazole-bet amethasone (Lotrisone) creamIndications :Eczema, unspecified type APPLY TO THE AFFECTED AREA(S) TWICE DAILY 45 g 06/28/20 24 2024 Discontinued(R eorder (will not trigger notification to Pharmacy)) Active Problems Problem Noted Date Diagnosed Date Diabetes due to underlying condition w oth circu latory comp 05/23/2024 Atherosclerosis of coronary artery 08/27/2013 Diabetes mellitus type 2, uncomplicated 08/27/19 14 Eczema 08/27/2013 Hypercholesterolemia 08/27/2013 Hypertension 08/27/2013 Encounters Date Type Department Care Team Description 07/30/2024 Refill [facility] [address] [place] [address] Kindra Saldivar MD Eczema, unspecified type 07/30/2024 Telephone [facility] [address] [place] [address] Kindra Saldivar MD Med Refill 07/23/2024 Telephone [facility] [address] [place] [address] Kindra Saldivar MD 07/23/2024 Orders Only [facility] [address] [place] [address] Kindra Sladivar MD Pain of right hip (Primary Dx) 06/27/2024 Refill [facility] [address] [place] [address] Kindra Saldivar MD Eczema, unspecified type 06/26/2024 Refill [facility] [address] [place] [address] Kindra Saldivar MD Eczema, unspecified type 06/21/2024 Refill [facility] [address] [place] [address] Kindra Saldivar MD Type 2 diabetes mellitus without complications ([facility]/HCC); Hypertension, unspecified type 06/21/2024 Telephone [facility] [address] [place] [address] Kindra Saldivar MD Med Refill 05/23/2024 9:00 AM EST Office Visit [facility] [address] [place] [address] Kindra Saldivar MD Type 2 diabetes mellitus without complication, without long-term current use of insulin ([facility]) (Primary Dx); Primary hypertension; Hypercholesterolemia; Pain of right hip 05/23/2024 Refill [facility] [address] [place] [address] Kindra Saldivar MD 05/23/2024 Travel 05/22/2024 Telephone [facility] [address] [place] [address] Kindra Saldivar MD from Last 3 Months Immunizations Name Administration Dates Next Due Influenza High-dose Quadriva lent Preservative Free 05/01/2023,04/08/2022,05/04/2021,04/08 Influenza injectable quadriv alent IIV4 with preservative 05/28/2019,04/24/2018,03/29/2016,04/07 Influenza, High Dose Seasona l, Preservative Free 05/13/2024,04/18/2017 Influenza, IIV3, injectable 04/15/2014, 7 Influenza, Split (incl. geovany fied surface antigen) 04/05/2013,04/17/2012 Pfizer Covid-19 Vaccine 12+ 09/11/2020, 1 Pneumococcal Conjugate PCV 13 04/28/2016 Pneumococcal Polysaccharide PPSV23 11/20/2012 Td (adult), unspecified 06/18/2003 Tdap 12/29/2015 Zoster, Recombinant 07/18/2023,05/01/2023 Social History Tobacco Use Types Packs/Day Years Used Date Smoking Tobacco: Never Smokeless Tobacco: Never Tobacco Cessation:Counseling Given: Not Answered Alcohol Use Standard Drinks/Week Comments Never 0 [...] Orientation Straight 05/09/2022 10 :20 AM EDT Last Filed Vital Signs Vital Sign Reading Time Taken Comments Blood Pressure 158/71 05/23/2024 9:08 AM EST Pulse 71 05/23/2024 9:08 AM EST Temperature 36.3 ??C (97.3 ??F) 05/23/2024 9:08 AM ES T Respiratory Rate 20 05/23/2024 9:08 AM EST Oxygen Saturation 97% 05/23/2024 9:08 AM EST Inhaled Oxygen Concentration - - Weight 73.5 kg (162 lb) 05/23/2024 9:08 AM EST Height 170.2 cm (5' 7 ) 05/23/2024 9:08 AM EST Body Mass Index 25.37 05/23/2024 9:08 AM EST Plan of Treatment Health Maintenance Due Date Last Done Comments Eye Exam 01/18/1950 Alcohol/Substance Use Screening 1952 RSV Patients and Patients Aged 60 years or older (1 - 1-dose 75+ series) 01/18/2015 Diabetes: Urine Protein Screening 07/20/2022 07/20/2021, 12/08/2020 Depression Screening 06/13/2024 06/13/2023, 06/13/20 Diabetes: Hemoglobin A1C 08/23/2024 024, 05/23/2024, 10/24/2023, Additional history exists SDOH Screening 10/16/2024 10/17/2023 COVID-19 Vaccine ( season) 2025 04/16/2021, 09/11/2020, 08/21/2020 Postponed from 03/10/2024 (Patient Refused) Diabetes: Foot Exam 05/23/2025 05/23/2024, 05/23/2024, 05/23/2024, Additional history exists Lipid Panel 05/23/2025 05/23/2024, 05/0 12/2023, 03/07/2023, Additional history exists Tobacco Screening 05/23/2025 05/23/2024 DTaP/Tdap/Td Vaccines (2 - Td or Tdap) 12/28/2025 12/29/2015, 06/18/2003 Pneumococcal Vaccine: 50+ Years Completed 04/28/2016, 11/20/2012 Zoster Vaccines Completed 07/18/2023, 05/01/2023 Influenza Vaccine Completed 05/13/2024, , 04/08/2022, Additional history exists HIB Vaccines Aged Out No longer eligi ble based on patient's age to complete this topic HPV Vaccines Aged Out No longer eligi ble based on patient's age to complete this topic Hepatitis A Vaccines Aged Out No long er eligible based on patient's age to complete this topic Hepatitis B Vaccines Aged Out No long er eligible based on patient's age to complete this topic IPV Vaccines Aged Out No longer eligi ble based on patient's age to complete this topic Meningococcal Vaccine Aged Out No jose a loretta eligible based on patient's age to complete this topic RSV under 20 months Aged Out No longe r eligible based on patient's age to complete this topic Rotavirus Vaccines Aged Out No longer eligible based on patient's age to complete this topic Procedures Procedure Name Priority Date/Time Associated Diagnosis Comments XR HIP 2 OR 3 VIEWS RIGHT Routine 05/23/2024 1:08 PM EST Pain of right hip HEMOGLOBIN A1C Routine 05/23/2024 9:28 AM EST Type 2 diabetes mellitus without complication, without long-term current use of insulin ([facility]) Primary hypertension HEPATIC FUNCTION PANEL Routine 05/23/2024 9:28 AM EST Type 2 diabetes mellitus without complication, without long-term current use of insulin ([facility]) Primary hypertension Hypercholesterolemia LIPID PANEL, STANDARD Routine 05/23/2024 9:28 AM EST Type 2 diabetes mellitus without complication, without long-term current use of insulin ([facility]) Primary hypertension Hypercholesterolemia BASIC METABOLIC PANEL Routine 05/23/2024 9:28 AM EST Type 2 diabetes mellitus without complication, without long-term current use of insulin ([facility]/HCC) POCT GLYCATED HEMOGLOBIN, TOTAL Routine 05/23/2024 9:15 AM EST Type 2 diabetes mellitus without complication, without long-term current use of insulin ([facility]) POCT GLUCOSE Routine 05/23/2024 9:14 AM EST Type 2 diabetes mellitus without complication, without long-term current use of insulin ([facility]) ALBUMIN, RANDOM URINE W/CREATININE Routine 07/20/2021 8:56 AM EST from Last 3 Months or Most Recently Relevant to Health Maintenance Results * XR Hip 2 or 3 Views Right (05/23/2024 1:08 PM EST) Anatomical Region Laterality Modality Lower Extremities, Hip Right Radiograp hic Imaging 05/23/2024 1:08 PM EST Narrative 07/23/2024 7:44 AM EST ? [facility] ?[address] ?[place] [address] ?XRay Report ? Signed ? Patient: Branden Gibson ?MR#: [id number] ?? [birth year] ? : 1940 ?Acct:[id number] ? Age/Sex: 84 / M ?ADM Date: 05/23/24 ? Loc: HO.CHCLDS ? Attending Dr: Kindra Saldivar MD ? Ordering Physician: Kindra Saldivar MD ?? Date of Service: 05/23/24 ?? Procedure(s): XR hip RT min 2V ?? Accession Number(s): [id number] ? cc: Kindra Saldivar MD ? EXAMINATION: ?? XR HIP RIGHT ? CLINICAL INFORMATION: ?? Pain. ? COMPARISON: ?? X-ray pelvis 04/14/2014 (report only). ? TECHNIQUE: ?? 5 views of the right hip. ? FINDINGS: ?? There is evidence of the left inferior pubic ramus fracture described ?? in report only for exam of 04/14/2014, only partially imaged. ? Degenerative changes in the imaged lower lumbar spine. Diffuse ?? demineralization. ? Vascular calcifications. ? A 1.5 cm sclerotic focus in the right supra-acetabular region. ? Moderately severe degenerative changes in the right hip with ?? superolateral joint space narrowing and hypertrophic change. ? XR/XR hip RT min 2V ?? IMPRESSION: ?? 1. Moderately severe degenerative changes right hip. ? 2. Evidence of left inferior pubic ramus fracture described in report ?? only for exam of 04/14/2014, only partially imaged. ? 3. A 1.5 cm sclerotic focus in the right supra-acetabular region. ? Electronically signed by: ??Sheri Rose MD ??07/23/2024 07:41 AM EST ?? RP ? Dictated By: ?Sheri Rose MD ? Signed By: ?<Electronically signed by Sheri Rose MD in OV> ? 07/23/24 0741 ? DD/ 1308 ? TD/TT: 05/23/24 1313 ? Woodworker: ? Procedure Note Donotmorisinterpreter, Image - 07/23/[address] [address] XRay Report Signed Patient: Herminio Gibson#: [id number] [birth year] : 1940Acct:[id number] Age/Sex: 84 / MADM Date: 05/23/24 Loc: .CHCLDS Attending Dr: Kindra Saldivar MD Ordering Physician: Kindra Saldivar MD Date of Service: 05/23/24 Procedure(s): XR hip RT min 2V Accession Number(s): [id number] cc: Kindra Saldivar MD EXAMINATION: XR HIP RIGHT CLINICAL INFORMATION: Pain. COMPARISON: X-ray pelvis 04/14/2014 (report only). TECHNIQUE: 5 views of the right hip. FINDINGS: There is evidence of the left inferior pubic ramus fracture described in report only for exam of 04/14/2014, only partially imaged. Degenerative changes in the imaged lower lumbar spine. Diffuse demineralization. Vascular calcifications. A 1.5 cm sclerotic focus in the right supra-acetabular region. Moderately severe degenerative changes in the right hip with superolateral joint space narrowing and hypertrophic change. XR/XR hip RT min 2V IMPRESSION: 1. Moderately severe degenerative changes right hip. 2. Evidence of left inferior pubic ramus fracture described in report only for exam of 04/14/2014, only partially imaged. 3. A 1.5 cm sclerotic focus in the right supra-acetabular region. Electronically signed by: Sheri Rose MD 07/23/2024 07:41 AM EST Dictated By: Sheri Rose MD Signed By: <Electronically signed by Sheri Rose MD in OV> 07/23/24 0741 DD/ 1308 TD/TT: 05/23/24 1313 Woodworker: us Kindra Saldivar MD IMG XR PROCEDURES Final Result * (ABNORMAL) Hemoglobin A1c (05/23/2024 9:28 AM EST) Hemoglobin A1c 8.3(H) <6.0 % [facility] Comment:Hemoglobin A1C Refer ence Range Adults: 4.8 - 6.0 % Non diabetic: < 6.0 % Goal: < 7.0 %Additional Action Suggested: > 8.0 %Note: Hemoglobin A1c results are invalid for patients with abnormal amounts of HbF. Blood transfusions may impact the HbA1c concentration in the patient sample. Estimated Average Glucose 192 mg/dL [facility] Comment:eAG = Estimated ave rage glucose which is %A1C expressed asaverage glucose, using the formula of the [id number] Glucose study (ADAG), Diabetes Care, Vol.31,#8,Feb. 2007 Blood Venous blood specimen / Unknown 05/23/2024 9:28 AM EST 05/23/2024 2:13 PM EST us Kindra Saldivar MD LAB BLOOD ORDERABLES Final Resul t Performing Organization Address City/State/[facility] Co de Phone Number [facility] [address] [place] [phone] * (ABNORMAL) Hepatic Function Panel (05/23/2024 9:28 AM EST) Bilirubin, Total 1.7(H) 0.0 - 1.0 mg/dL [facility] Bilirubin, Direct 0.5 0.0 - 0.5 mg/dL [facility] Aspartate Amino Transferase 26 5 - 37 U/L [facility] Alanine Aminotransferase 24 0 - 40 U/L [facility] Total Protein 6.9 6.5 - 8.0 g/dL [facility] Albumin Level 4.3 3.5 - 5.0 g/dL [facility] Alkaline Phosphatase 63 39 - 117 U/L [facility] Blood Venous blood specimen / Unknown 05/23/2024 9:28 AM EST 05/23/2024 2:13 PM EST Kindra Saldivar MD LAB BLOOD ORDERABLES Final Resul t Performing Organization Address [facility] Co de Phone Number [facility] [address] [place] [phone] * Lipid Panel, Standard (05/23/2024 9:28 AM EST) Triglycerides 67 <150 mg/dL [facility] Comment:Desirable Triglyceri de: less than 150 mg/dLBorderline High Triglyceride 150-199 mg/dLHigh Triglyceride: 200-499 mg/dLVery High Triglyceride: greater than or equal to 5OO mg/dL Cholesterol 114 <200 mg/dL [facility] Comment:Desirable Cholestero l: less than 200 mg/dLBorderline High Cholesterol: 200-239 mg/dLHigh Cholesterol: greater than 239 mg/dL LDL Cholesterol Calculated 42 <100 mg/dL [facility] Comment:Desirable LDL: less than 100 mg/dLNear Optimal/Above Optimal LDL: 110- 129 mg/dLBorderline High LDL: 130-159 mg/dLHigh LDL: 160-189 mg/dLVery High LDL: greater than or equal to 190 mg/dL HDL Cholesterol 59 >40 mg/dL [facility] Comment:Desirable HDL: great er than 40 mg/dL Note: This HDL assay may give artificially low results in patients with liver disease. Blood Venous blood specimen / Unknown 05/23/2024 9:28 AM EST 05/23/2024 2:13 PM EST Kindra Saldivar MD LAB BLOOD ORDERABLES Final Resul t Performing Organization Address [facility] Co de Phone Number [facility] [address] [place] [phone] * (ABNORMAL) Basic Metabolic Panel (05/23/2024 9:28 AM EST) Sodium 145 135 - 145 mmol/L [facility] Potassium 4.2 3.3 - 5.1 mmol/L [facility] Chloride 107 96 - 108 mmol/L [facility] Carbon Dioxide 29 22 - 29 mmol/L [facility] Anion Gap 13 12 - 20 [facility] Urea Nitrogen (BUN) 18(H) 9 - 16 mg/dL [facility] Creatinine, Serum 0.94 0.5 - 1.4 mg/dL [facility] Estimated Glomerular Filt Rate >60 [facility] Comment:Chronic Kidney Disea se: Estimated GFR < 60 mL/min/1.00m4Fxgvxo Kidney Disease: Estimated GFR < 15 mL/min/1.73m2 Glucose 152(H) 60 - 115 mg/dL [facility] Calcium 9.8 8.4 - 10.2 mg/dL [facility] Blood Venous blood specimen / Unknown 05/23/2024 9:28 AM EST 05/23/2024 2:13 PM EST us Kindra Saldivar MD LAB BLOOD ORDERABLES Final Resul t [facility] [address] [place], [place] [phone] * (ABNORMAL) POCT HGB A1C (05/23/2024 9:15 AM EST) Hemoglobin A1C 8.4(A) 4.0 - 6.0 % QC Media Lot # [id number] Lot# Expiration Date Blood 05/23/2024 9:15 AM EST us Kindra Saldivar MD POINT OF CARE TEST ENTER/EDIT OR DERABLES Final Result * POCT Glucose (05/23/2024 9:14 AM EST) Glucose Blood, POC 180 60 - 200 mg/dL QC Media Lot # [id number] fasting Lot# Expiration Date Blood Capillary blood specimen / Unknown 05/23/2024 9:14 AM EST Kindra Saldivar MD POINT OF CARE TEST ENTER/EDIT OR DERABLES Final Result * (ABNORMAL) ALBUMIN, RANDOM URINE W/CREATININE (07/20/2021 8:56 AM EST) Microalbumin Urine 14.3 See Note: mg/dL [facility] Comment: Reference Range: ?? Reference Range Not established Microalb/Creat Ratio 104(H) <30 mcg/mg creat [facility] Comment: ?? The ADA defines abnormalities in albumin excretion as follows: ?? Albuminuria Category ?Result (mcg/mg creatinine) ?? Normal to Mildly increased ?? <30 Moderately increased ? 30-299 ?? Severely increased ? > OR = 300 ?? The ADA recommends that at least two of three specimens collected within a 3-6 month period be abnormal before considering a patient to be within a diagnostic category. Creatinine, Urine 137 20 - 320 mg/dL [facility] 07/20/2021 8:56 AM EST Kindra Saldivar MD LAB URINE ORDERABLES Final Resul t [facility] [address] from Last 3 Months or Most Recently [place] [address] [facility] Care Teams Falsework Builder Relationship Specialty Start Date End Date Kindra Saldivar MD [address] [place] [address] [place] [address] PCP - General Family Medicine 06/22/12
--- OUTSIDE RECORDS SUMMARY | 2024-08-16 10:34 | XMS_ITS | Encounter Summary ---
Author Organization [employer] Address [address] [facility] 7t [place] [address] Care Team Providers Care Powder Truck Driver Name Role Phone Kindra Saldivar MD Primary Care Provider Reason for Visit * Reason Onset Date Comments Med Refill 07/30/2024 Encounter Details Date Type Department Care Team ([facility] [address] Contact Info) Description 07/30/2024 Telephone [facility] [address] [place] [address] Kindra Saldivar MD [address] [place] [address] Med Refill Social History Tobacco Use Types Packs/Day Years [...] encounter Miscellaneous Notes * Telephone Encounter - nEa Greene - 07/30/2024 1:41 PM EST Pt walked in requesting a med refill on the following: Clotrimazole documented in this encounter Plan of Treatment Not on file documented as of this encounter Visit Diagnoses Not on filedocumented in this encounter Additional Health Concerns Assessment Noted Time PHQ-9 Depression Total Score: 0 06/13/20 23 11:29 AM EST documented as of this encounter Care Teams Powder Truck Driver Relationship Specialty Start Date End Date Kindra Saldivar MD [address] [place] [phone] PCP - General Family Medicine 06/22/12 documented as of this encounter
--- OUTSIDE RECORDS SUMMARY | 2024-08-16 10:34 | XMS_ITS | Encounter Summary ---
Author Organization [employer] Address [address] [facility] 7t [place] [address] Care Team Providers Care Nanosystems Engineer Name Role Phone Kindra Saldivar MD Primary Care Provider [phone] Reason for Referral * Consultation (Urgent) - Authorized Specialty Diagnoses / Procedures Referred By Jason t Referred To Contact Orthopaedic Surgery Diagnoses Pain of right hip Kindra Saldivar MD [address] [place] [address] Phone: tel: fax: [facility] [address] [place] [address] Phone: tel: Referral ID Status Reason Start Date Expiration Date Visits Requested Visits Authorized [id number] Authorized Specialty Services Required 07/23/2024 07/23/2025 1 1 Encounter Details Date Type Department Care Team ([facility] st Contact Info) Description 07/23/2024 Orders Only [facility] [address] [place] [address] Kindra Saldivar MD [address] [place] [address] Pain of right hip (Primary Dx) Social History Tobacco Use Types Packs/Day Years [...] as of this encounter Plan of Treatment Scheduled Referrals Name Type Priority Associated Diagnoses Order Schedule Referral to Orthopaedic Surgery Outpatient Referral Urgent Pain of right hip Expected: 07/23/2024 (Approximate), Expires: 07/23/2025 documented as of this encounter Visit Diagnoses Diagnosis Pain of right hip- Primary documented in this encounter Additional Health Concerns Assessment Noted Time PHQ-9 Depression Total Score: 0 06/13/20 23 11:29 AM EST documented as of this encounter Care Teams Nanosystems Engineer Relationship Specialty Start Date End Date Kindra Saldivar MD [address] [place] [address] PCP - General Family Medicine 06/22/12 documented as of this encounter
--- OUTSIDE RECORDS SUMMARY | 2024-08-16 10:34 | XMS_ITS | Encounter Summary ---
Author Organization [employer] Address [address] [facility] 7t [place] [address] Care Team Providers Care Drainage Design Coordinator Name Role Phone Kindra Saldivar MD Primary Care Provider [phone] Reason for Visit * Reason Comments Med Refill Encounter Details Date Type Department Care Team ([facility] st Contact Info) Description 11/04/2022 Refill [facility] CH[facility] MED & PEDS [address] [place], [place] [phone] Kindra Saldivar MD [address] [place] [address] Eczema, unspecified type Social History Tobacco Use Types Packs/Day Years Used Date Smoking Tobacco: Never Assessed Sex and Gender Information Value Date Recorded Sex Assigned at Male 05/09/2022 10:20 AM EDT Legal Sex Male 10:20 AM EDT Gender Identity Male 05/09/2022 10:20 AM EDT Sexual Orientation Straight 05/09/2022 10 :20 AM EDT COVID-19 Exposure Response Date Recorded In the last 10 days, have yo u been in contact with someone who was confirmed or suspected to have Coronavirus/COVID-19? No / Unsure 11/07/2022 9:55 AM EDT documented as of this encounter Plan of Treatment Not on file documented as of this encounter Visit Diagnoses Diagnosis Eczema, unspecified type documented in this encounter Care Teams Drainage Design Coordinator Relationship Specialty Start Date End Date Kindra Saldivar MD [address] [place] [id number] PCP - General Family Medicine 06/22/12 documented as of this encounter
== END 2024-08-15 09:48 | disposition home or self-care (01) ==
LOC: HO.HOSX 09:47
PROVIDERS: Visit Provider Physician Assistant
DX: Z13.89 Encounter for screening for other disorder (principal)

== ENCOUNTER 2024-11-19 09:14 | Outpatient (REF) | payer MEDICARE, OTHER, SELFPAY ==
--- OUTSIDE RECORDS SUMMARY | 2024-11-19 09:41 | XMS_ITS | Encounter Summary ---
Author Organization [employer] Address [address] [facility] [address] 7t [place] [address] Care Team Providers Care Drafter Castings Name Role Phone Kindra Saldivar MD Primary Care Provider [phone] Reason for Visit * Reason Comments Med Refill Encounter Details Date Type Department Care Team ([facility] st Contact Info) Description 10/30/2023 Refill [facility] CHC MED & PEDS 505 [place], [place] [phone] Kindra Saldivar MD 505 [place] [address] Type 2 diabetes mellitus without complications (CMS/[facility]) Social History Tobacco Use Types Packs/Day Years [...] documented as of this encounter Care Teams Drafter Castings Relationship Specialty Start Date End Date Kindra Saldivar MD [address] [place] [address] PCP - General Family Medicine 06/22/12 documented as of this encounter
--- OUTSIDE RECORDS SUMMARY | 2024-11-19 09:41 | XMS_ITS | Encounter Summary ---
Author Organization [employer] Address [address] [facility] 7t [place] [address] Care Team Providers Care Edi Specialist Name Role Phone Kindra Saldivar MD Primary Care Provider [phone] Reason for Visit * Reason Comments Med Refill Encounter Details Date Type Department Care Team ([facility] st Contact Info) Description 11/04/2022 Refill [facility] CHC MED & PEDS [address] [place], [place] [phone] Kindra Saldivar MD 505 [place] [address] Eczema, unspecified type Social History Tobacco Use [...] type documented in this encounter Care Teams Edi Specialist Relationship Specialty Start Date End Date Kindra Saldivar MD [address] [place] [phone] PCP - General Family Medicine 06/22/12 documented as of this encounter
--- OUTSIDE RECORDS SUMMARY | 2024-11-19 09:41 | XMS_ITS | Clinical Summary ---
Author Organization [employer] Address [address] [facility] 7t [place] [address] Care Team Providers Care Corporate Quality Engineer Name Role Phone Kindra Saldivar MD Primary Care Provider [phone] Allergies No known active allergies Medications cetirizine [...] NEEDED 18 g 11 01/07/20 23 Active azelastine (Astelin) 0.1 % nasal [...] NEEDED 90 mL 3 07/05/20 23 Active TRUEplus Lancets 33G misc TEST BLOOD SUGAR TWICE DAILY 100 each 11 10/30/19 24 Active nitroglycerin (Nitrostat) 0.4 MG SL tabletIndication s:Hypertension, unspecified type DISSOLVE 1 TABLET UNDER THE TONGUE EVERY 5 MINUTES NEEDED FOR CHEST PAIN. DO NOT EXCEED A TOTAL OF 3 DOSES IN 15 MINUTES. 25 tablet 1 11/06/19 Active Blood Glucose Monitoring Suppl (FreeStyle [place] Lite) w/Device kit Use to test blood sugar 2 times daily 1 kit 11/28/19 Active empagliflozin (Jardiance) 10 MG Take 1 tablet (10 mg) by mouth Once per day. 90 tablet 3 11/28/19 24 2024 Active rosuvastatin (Crestor) 40 MG tablet Take 1 tablet (40 mg) by mouth at bedtime. 90 tablet 3 11/29/19 24 2024 Active lidocaine (Lidoderm) 5 % patch Apply 1 patch topically Once per day. Remove & discard patch within 12 hours or as directed by MD. 30 patch 11/29/19 24 2024 Active glipiZIDE (Glucotrol) 10 MG tablet TAKE TWO TABLETS TWICE DAILY BEFORE MEALS 360 tablet 3 01/23/20 Active telmisartan (MIcarDIS) 40 MG tablet Take 1 tablet (40 mg) by mouth Once per day. 90 tablet 3 03/25/20 24 2024 Active meloxicam (Mobic) 7.5 MG tablet Take 1 tablet (7.5 mg) by mouth Once per day. 30 tablet 05/23/20 24 2024 Active Diclofenac Sodium 1 % gel Apply 4 g topically if needed in the morning and at bedtime (as needed for moderate pain). 50 g 1 05/23/20 24 Active Blood Pressure kit Check blood pressure daily 1 kit 05/23/20 24 Active FREESTYLE LITE test stripIndications :Type 2 diabetes mellitus without complications (CMS/HCC) TEST BLOOD SUGAR TWICE DAILY 50 strip 11 06/24/20 24 Active hydroCHLOROthiaz anival (HYDRODiuril) 25 MG tabletIndication s:Hypertension, unspecified type TAKE ONE TABLET BY MOUTH EVERY MORNING 90 tablet 3 06/24/20 24 Active Aspirin Low Dose 81 MG chewable tablet CHEW ONE TABLET EVERY MORNING 90 tablet 3 09/20/19 25 Active clotrimazole-bet amethasone (Lotrisone) creamIndications :Eczema, unspecified type APPLY TO THE AFFECTED AREA(S) TWICE DAILY 45 g 10/10/19 25 Active metFORMIN (Glucophage) 1000 MG tablet TAKE 1 TABLET BY MOUTH TWICE A DAY WITH BREAKFAST AND EVENING MEALS. 180 tablet 3 10/11/19 25 Active cilostazol (Pletal) 50 MG tabletIndication s:Atherosclerosi s of coronary artery, unspecified vessel or lesion type, unspecified whether angina present, unspecified whether lummi or transplanted heart Take 1 tablet (50 mg) by mouth 2 times daily. 60 tablet 9 11/06/19 25 Active diphenhydrAMINE (BENADryl) 25 MG tablet Take 1 tablet (25 mg) by mouth if needed at bedtime for itching. 90 tablet 3 03/07/20 23 2024 Discontinued cilostazol (Pletal) 50 MG tabletIndication s:Atherosclerosi s of coronary artery, unspecified vessel or lesion type, unspecified whether angina present, unspecified whether lummi or transplanted heart TAKE ONE TABLET BY MOUTH TWICE DAILY ONE-HALF HOUR BEFORE OR TWO HOURS AFTER BREAKFAST AND dinner 60 tablet 9 08/30/19 24 2024 Discontinued(R eorder (will not trigger notification to Pharmacy)) Active Problems Problem Noted Date Diagnosed Date Atherosclerosis of coronary artery 08/27/2013 Diabetes mellitus type 2, uncomplicated 08/27/19 14 Eczema 08/27/2013 Hypercholesterolemia 08/27/2013 Hypertension 08/27/2013 Resolved Problems Problem Noted Date Diagnosed Date Resolved Date Diabetes due to underlying c ondition w oth circulatory comp 05/23/2024 11/05/2024 Encounters Date Type Department Care Team Description 11/05/2024 10:00 AM EDT Office Visit [facility] MED & PEDS [address] [place] [address] Kindra Saldivar MD Varicose veins of both lower extremities with inflammation (Primary Dx); Type 2 diabetes mellitus without complication, without long-term current use of insulin ([facility]); Primary hypertension; Hypercholesterolemia; Atherosclerosis of coronary artery, unspecified vessel or lesion type, unspecified whether angina present, unspecified whether lummi or transplanted heart 11/05/2024 Travel 11/04/2024 Telephone [facility] [address] [place] [address] Kindra Saldivar MD Chart Prep 11/04/2024 Telephone [facility] [address] [place] [address] Kindra Saldivar MD Med Refill 11/04/2024 Refill [facility] [address] [place] [address] Kindra Saldivar MD Atherosclerosis of coronary artery, unspecified vessel or lesion type, unspecified whether angina present, unspecified whether lummi or transplanted heart 10/24/2024 Patient Outreach [facility] [address] [place] [address] Kindra Saldivar MD Pre-visit Planning (Pre visit planning LVM ) 10/10/2024 Refill [facility] MED & PEDS [address] [place] [address] Kindra Saldivar MD 10/09/2024 Telephone [facility] [address] [place] [address] Kindra Saldivar MD Med Refill 10/09/2024 Refill [facility] [address] [place] [address] Kindra Saldivar MD Eczema, unspecified type 10/08/2024 Telephone [facility] [address] [place] [address] Kindra Saldivar MD Med Refill 09/16/2024 Telephone [facility] [address] [place] [address] Kindra Saldivar MD Med Refill 09/14/2024 Refill [facility] [address] [place] [address] Kindra Saldivar MD from Last 3 Months Immunizations Name Administration Dates Next Due Influenza High-dose Quadriva lent Preservative Free 05/01/2023,04/08/2022,05/04/2021,04/08 Influenza injectable quadriv alent IIV4 with preservative 05/28/2019,04/24/2018,03/29/2016,04/07 Influenza, High Dose Seasona l, Preservative Free 05/13/2024,04/18/2017 Influenza, IIV3, injectable 04/15/2014, 7 Influenza, Split (incl. geovany fied surface antigen) 04/05/2013,04/17/2012 Pfizer Covid-19 Vaccine 12+ 09/11/2020, Pneumococcal Conjugate PCV 13 04/28/2016 Pneumococcal Polysaccharide [...] Answer Date Recorded Patient Health Questionnaire-9 Score 3 11/05/2024 Patient Health Questionnaire-9 Score 3 11/05/2024 Last PHQ-9: Questionnaire Data Not on file 0 11/05/2024 Housing Stability Answer Date Recorded What is your housing situation today? I have radha morton 11/05/[address] you li ve. Do you have problems with any of the following? None of the above 11/05/2024 Food Insecurity Answer Date Recorded Within the past 12 months, y ou worried that your food would run out before you got money to buy more: Never True 11/05/2024 Within the past 12 months,th e food you bought just didn't last and you didn't have enough money to get more: Never True Transportation Answer Date Recorded In the past 12 months, has l ack of transportation kept you from medical appts, meetings, work or from getting things needed for daily living? No 11/05/2024 Utilities Answer Date Recorded In the past 12 months, has t he electric, gas, oil or water company threatened to shut off services in your home? No 11/05/2024 Depression Answer Date Recorded Patient Health Questionnaire-2 Score 2 11/05/2024 Internet Access Answer Date Recorded Internet Access Q1 No 11/05/2024 Internet Access Q2 I do not want or need it 10/09 Sex and Gender Information Value Date Recorded Sex Assigned at Male 05/09/2022 10:20 AM EDT Legal Sex Male 10:20 AM EDT Gender Identity Male 05/09/2022 10:20 AM EDT Sexual Orientation Straight 05/09/2022 10 :20 AM EDT Last Filed Vital Signs Vital Sign Reading Time Taken Comments Blood Pressure 139/68 11/05/2024 10:09 AM EDT Pulse 62 11/05/2024 10:09 AM EDT Temperature 36.4 ??C (97.5 ??F) 11/05/2024 10:09 AM E DT Respiratory Rate 20 11/05/2024 10:09 AM EDT Oxygen Saturation 97% 05/23/2024 9:08 AM EST Inhaled Oxygen Concentration - - Weight 70.8 kg (156 lb) 11/05/2024 10:09 AM EDT Height 170.2 cm (5' 7 ) 11/05/2024 10:09 AM EDT Body Mass Index 24.43 11/05/2024 10:09 AM EDT Plan of Treatment Health Maintenance Due Date Last Done Comments Eye Exam 01/18/1950 RSV Patients and Patients Aged 60 years or older (1 - 1-dose 75+ series) 01/18/2015 Diabetes: Urine Protein Screening 07/20/2022 07/20/2021, 12/08/2020 Diabetes: Hemoglobin A1C 02/04/2025 025, 05/23/2024, 05/23/2024, Additional history exists COVID-19 Vaccine ( season) 2025 04/16/2021, 09/11/2020, 08/21/2020 Postponed from 03/10/2024 (Patient Refused) Diabetes: Foot Exam 05/23/2025 05/23/2024, 05/23/2024, 05/23/2024, Additional history exists Lipid Panel 05/23/2025 05/23/2024, 05/0 12/2023, 03/07/2023, Additional history exists Alcohol/Substance Use Screening 11/05/2025 11/05/2024 Depression Screening 11/05/2025 11/05/2024, 11/06/19 25 SDOH Screening 11/05/2025 11/05/2024 Tobacco Screening 11/05/2025 11/05/2024 DTaP/Tdap/Td Vaccines (2 - Td or Tdap) [...] Procedure Name Priority Date/Time Associated Diagnosis Comments POCT GLYCATED HEMOGLOBIN, TOTAL Routine 11/05/2024 10:14 AM EDT Type 2 diabetes mellitus without complication, without long-term current use of insulin ([facility]) POCT GLUCOSE Routine 11/05/2024 10:12 AM EDT Type 2 diabetes mellitus without complication, without long-term current use of insulin (CMS/[facility]) LIPID PANEL, STANDARD Routine 05/23/2024 9:28 AM EST Type 2 diabetes mellitus without complication, without long-term current use of insulin (CMS/[facility]) Primary hypertension Hypercholesterolemi a ALBUMIN, RANDOM URINE W/CREATININE Routine 07/20/2021 8:56 AM EST from Last 3 Months or Most Recently Relevant to Health Maintenance Results * (ABNORMAL) POCT HGB A1C (11/05/2024 10:14 AM EDT) Hemoglobin A1C 8.5(A) 4.0 - 6.0 % QC Media Lot # [id number] Lot# Expiration Date Blood 11/05/2024 10:1 4 AM EDT Kindra Saldivar MD POINT OF CARE TEST ENTER/EDIT OR DERABLES Final Result * (ABNORMAL) POCT Glucose (11/05/2024 10:12 AM EDT) Pathologist [facility] Glucose Blood, POC 207(A) 60 - 200 mg/dL QC Media Lot # [id number] Lot# Expiration Date Blood Capillary blood specimen / Unknown 11/05/2024 10:12 AM EDT Kindra Saldivar MD POINT OF CARE TEST ENTER/EDIT OR DERABLES Final Result * Lipid Panel, Standard (05/23/2024 9:28 AM EST) Triglycerides 67 <150 mg/dL [facility] Comment:Desirable Triglyceri de: less than 150 mg/dLBorderline High Triglyceride 150-199 mg/dLHigh Triglyceride: 200-499 mg/dLVery High Triglyceride: greater than or equal to 5OO mg/dL Cholesterol 114 <200 mg/dL [facility] Comment:Desirable Cholestero l: less than 200 mg/dLBorderline High Cholesterol: 200-239 mg/dLHigh Cholesterol: greater than 239 mg/dL LDL Cholesterol Calculated 42 <100 mg/dL [facility] Comment:Desirable LDL: less than 100 mg/dLNear Optimal/Above Optimal LDL: 110- 129 mg/dLBorderline High LDL: 130-159 mg/dLHigh LDL: 160-189 mg/dLVery High LDL: greater than or equal to 190 mg/dL HDL Cholesterol 59 >40 mg/dL [facility] Comment:Desirable HDL: great er than 40 mg/dL Note: This HDL assay may give artificially low results in patients with liver disease. Blood Venous blood specimen / Unknown 05/23/2024 9:28 AM EST 05/23/2024 2:13 PM EST us Kindra Saldivar MD LAB BLOOD ORDERABLES Final Resul t Performing Organization Address City/[facility]/ZIP Co de Phone Number [facility] [address] [place] [phone] [phone] * (ABNORMAL) ALBUMIN, RANDOM URINE W/CREATININE (07/20/2021 [...] [facility] 07/20/2021 8:56 AM EST us Kindra Saldivar MD LAB URINE ORDERABLES Final Resul t Performing Organization Address City/[facility] Co de Phone Number [facility] [address] from Last 3 Months or Most Recently Relevant to Health Maintenance Insurance [facility] OPTIONS (HMO D-SNP) JOSE GALLEGOS [id number] Care Teams Corporate Quality Engineer Relationship Specialty Start Date End Date Kindra Saldivar MD [address] [place] [id number] PCP - General Family Medicine 06/22/12
--- OUTSIDE RECORDS SUMMARY | 2024-11-19 09:41 | XMS_ITS | Encounter Summary ---
Author Organization [employer] Address [address] [facility] 7t [place] [address] Care Team Providers Care Expanded Function Dental Assistant Name Role Phone Kindra Saldivar MD Primary Care Provider [phone] Reason for Visit * Reason Comments Med Refill Encounter Details Date Type Department Care Team ([facility] st Contact Info) Description 12/31/2023 Refill [facility] CHC MED & PEDS [address] [place], [place] [phone] Jermain Monsalve MD [address] [place] [address] Eczema, unspecified type Social History Tobacco Use [...] documented as of this encounter Care Teams Expanded Function Dental Assistant Relationship Specialty Start Date End Date Kindra Saldivar MD [address] [place] [id number] PCP - General Family Medicine 06/22/12 documented as of this encounter
--- OUTSIDE RECORDS SUMMARY | 2024-11-19 09:41 | XMS_ITS | Encounter Summary ---
Author Organization [employer] Address [address] [facility] [address] 7t [place] [address] Care Team Providers Care Goodyear Welter Name Role Phone Kindra Saldivar MD Primary Care Provider [phone] Reason for Visit * Reason Comments Med Refill Encounter Details Date Type Department Care Team ([facility] Contact Info) Description 05/23/2024 Refill [facility] CHC MED & PEDS [address] [place], [place] [phone] Kindra Saldivar MD [address] [place] [address] Social History Tobacco Use Types Packs/Day Years [...] documented as of this encounter Care Teams Goodyear Welter Relationship Specialty Start Date End Date Kindra Saldivar MD [address] [place] [address] PCP - General Family Medicine 06/22/12 documented as of this encounter
--- OUTSIDE RECORDS SUMMARY | 2024-11-19 09:41 | XMS_ITS | Encounter Summary ---
Author Organization [employer] Address [address] [facility] 7t [place] [address] Care Team Providers Care Caterpillar Operator Name Role Phone Kindra Saldivar MD Primary Care Provider [phone] Reason for Visit * Reason Comments Med Refill Encounter Details Date Type Department Care Team ([facility] st Contact Info) Description 05/03/2023 Refill [facility] CH[facility] MED & PEDS [address] [place], [place] [phone] Kindra Saldivar MD [address] [place] [address] Social History Tobacco Use Types Packs/Day Years [...] on filedocumented in this encounter Care Teams Caterpillar Operator Relationship Specialty Start Date End Date Kindra Saldivar MD [address] [place] [id number] PCP - General Family Medicine 06/22/12 documented as of this encounter
--- OUTSIDE RECORDS SUMMARY | 2024-11-19 09:41 | XMS_ITS | Encounter Summary ---
Author Organization [employer] Address [address] [facility] [address] 7t [place] [address] Care Team Providers Care Imagery Analyst Name Role Phone Kindra Saldivar MD Primary Care Provider [phone] Reason for Visit * Reason Comments Med Refill Encounter Details Date Type Department Care Team ([facility] st Contact Info) Description 11/04/2024 Refill [facility] MED & PEDS [address] [place] [address] Kindra Saldivar MD [address] [place] [address] Atherosclerosis of coronary artery, unspecified vessel or lesion type, unspecified whether angina present, unspecified whether [place] or transplanted heart Social History Tobacco Use Types Packs/Day Years [...] as of this encounter Visit Diagnoses Diagnosis Atherosclerosis of coronary artery, unspecified vessel or lesion type, unspecified whether angina present, unspecified whether [place] or transplanted heart documented in this encounter Additional Health Concerns Assessment Noted Time PHQ-9 Depression Total Score: 0 06/13/20 23 11:29 AM EST documented as of this encounter Care Teams Imagery Analyst Relationship Specialty Start Date End Date Kindra Saldivar MD [address] [place] [id number] PCP - General Family Medicine 06/22/12 documented as of this encounter
--- OUTSIDE RECORDS SUMMARY | 2024-11-19 09:41 | XMS_ITS | Encounter Summary ---
Author Organization [employer] Address [address] [facility] [address] [place] [address] Care Team Providers Care Land Leases And Rentals Manager Name Role Phone Kindra Saldivar MD Primary Care Provider [phone] Encounter Details Date Type Department Care Team (Late st Contact Info) Description 06/13/2022 Abstract [facility] CHC MED & PEDS [address] [place] [address] ProviderJose MD Social History Tobacco Use Types [...] on filedocumented in this encounter Care Teams Land Leases And Rentals Manager Relationship Specialty Start Date End Date Kindra Saldivar MD [address] [place] [phone] PCP - General Family Medicine 06/22/12 documented as of this encounter
[2024-11-19 10:55] LABS: Estimated Average Glucose 203 mg/dL; Hemoglobin A1C 274.6575 umol/L; Hemoglobin A1c % 8.7 % (<6.0); Total Hemoglobin (HGBA1C) 3840.5977 umol/L
[2024-11-19 11:37] LABS: Alanine Aminotransferase 22 U/L (0-40); Albumin Level 4.2 g/dL (3.5-5.0); Anion Gap 14 (12-20); Aspartate Amino Transferase 24 U/L (5-37); Bilirubin Direct 0.3 mg/dL (0.0-0.5); Bilirubin Total 2.2 mg/dL (0.0-1.0); Blood Urea Nitrogen 19 mg/dL (9-16); Calcium 9.6 mg/dL (8.4-10.2); Carbon Dioxide 27 mmol/L (22-29); Chloride 107 mmol/L (96-108); Cholesterol 104 mg/dL (<200); Estimated Glomerular Filt Rate > 60; Glucose Random 157 mg/dL (60-115); HDL Cholesterol 57 mg/dL (>40); LDL Cholesterol Calculated 33 mg/dL (<100); Potassium 4.3 mmol/L (3.3-5.1); Sodium 144 mmol/L (135-145); Total Protein 6.5 g/dL (6.5-8.0); Triglycerides 72 mg/dL (<150)
[2024-11-19 11:50] LABS: Prostate Specific Antigen 0.88 ng/mL (<0.05-4.0)
[2024-11-19 12:37] LABS: Alkaline Phosphatase 60 U/L (39-117)
== END 2024-11-19 09:15 | disposition home or self-care (01) ==
LOC: HO.LAB 09:14
PROVIDERS: PCP Student in an Organized Health Care Education/Training Program; Visit Provider Urology
DX: E11.9 Type 2 diabetes mellitus without complications (principal); E78.00 Pure hypercholesterolemia, unspecified; I10 Essential (primary) hypertension; N32.0 Bladder-neck obstruction; R33.9 Retention of urine, unspecified; N40.1 Benign prostatic hyperplasia with lower urinary tract symptoms; Z12.5 Encounter for screening for malignant neoplasm of prostate
CPT/HCPCS: 36415; 80048; 80061; 80076; 83036; 84153

== ENCOUNTER 2024-12-03 10:51 | Outpatient (AMB) | payer MEDICARE, SELFPAY ==
--- NOTE | 2024-12-03 10:54 | A.OFFVIS_ITS ---
Intake Visit Reasons: 6m/PSA/PVR Intake Note: Pt presents to the office today for a 6 month/PSA/PVR. PVR:230Ml Allergies No Known Allergies [No Known Allergies*] Allergy (Verified 12/03/24 10:59) HPI Comments Details: Branden is a very pleasant Divehi male. He is a patient of Dr. Saldivar. He is seen for the following urologic conditions - bladder outlet obstruction - incomplete bladder emptying Six-month follow-up Remains on bethanechol and tamsulosin. PVR increased to 300. Glucose 3+ Does not appear to be on any SGLT2 Poor diabetic control HbA1c 8.7% Appears to require more intensive diabetic management Recommend primary care make adjustments to diabetes management to improve control with target HbA1c 7.0 Lower urinary tract symptoms primarily incomplete emptying Longstanding Current treatment tamsulosin 0.8 mg High PVR 120 cc Office investigations - 08/31 cystoscopy with open bladder neck PSA - 11/30 0.8, 12/01 0.88 Background diabetes HBA1c 8.4% Nephrolithiasis Prior diagnosis of stones with ESWL in the past No recent imaging PFSH Medical History Diabetes mellitus Hyperlipidemia HTN (hypertension) PVD (peripheral vascular disease) CAD (coronary artery disease) Surgical History History of gastric surgery Hx of CABG Family History Father No problems noted. Mother No problems noted. Sister Cancer Social History Patient Tobacco Use Status: Never used Tobacco Review of Systems Const Denies chills and Denies fever(s) Card Reports no additional complaints and Denies syncope Resp Denies cough GI Denies abdominal pain and Denies heartburn Reports as per HPI and Denies change in libido Neuro Denies syncope Psych Denies change in libido Endo Denies change in libido Physical Exam Const General: cooperative, healthy appearing, comfortable and no acute distress Orientation/consciousness: patient oriented x3 HEENT Face and sinus: Yes normal facial exam Mouth: moist mucous membranes Neck Neck: Yes normal visual inspection, Yes full ROM and Yes trachea midline Chest Chest palpation & inspection: normal inspection of the chest Resp Effort & Inspection: normal respiratory effort, able to speak in complete sentences and no respiratory distress GI Inspection: Yes normal to inspection Back/Spine/Pelvis Cervical Spine: normal cervical lordosis Thoracic/Lumbar Spine: thoracic and lumbar spine normal to inspection Skin General skin exam: no rashes or lesions noted Neuro General: patient oriented x3, gait normal, tone normal and moves all extremities Extrem General: Yes normal to inspection and Yes capillary refill normal Office Procedures Post Void Residual Post Residual Void Post Void Residual (PVR): 230 [id number] Void Residual by ultrasound Results AMB Urinalysis, Automated UA Leukoctes 0 Lloyd/uL Last Edit by Rere Restrepo CMA on 12/03/24 11:08 UA Nitrite Positive Last Edit by Rere Restrepo CMA on 12/03/24 11:08 UA Urobilinogen 0.2 mg/dL Last Edit by Rere Restrepo CMA on 12/03/24 11:08 UA Protein 0 mg/dL Last Edit by Rere Restrepo CMA on 12/03/24 11:08 UA pH 6.0 Last Edit by Rere Restrepo CMA on 12/03/24 11:08 UA Blood 0 Kaleb/uL Last Edit by Rere Restrepo CMA on 12/03/24 11:08 UA Specific [place] 1.010 Last Edit by Rere Restrepo CMA on 12/03/24 11:08 UA Ketone Negative Last Edit by Rere Restrepo CMA on 12/03/24 11:08 UA Bilirubin 0 mg/dL Last Edit by Rere Restrepo CMA on 12/03/24 11:08 UA Glucose 1000 mg/dL Last Edit by Rere Restrepo CMA on 12/03/24 11:08 Results Reviewed Results Reviewed: Laboratory Last Values Urine pH (Auto) 6.0 12/03/24 11:06 Specific [place] (Auto) 1.010 12/03/24 11:06 Urine Protein (Auto) 0 mg/dL 12/03/24 11:06 Glucose (UA)(Auto) 1000 mg/dL 12/03/24 11:06 Urine Ketones (Auto) Negative 12/03/24 11:06 Urine Blood (Auto) 0 Kaleb/uL 12/03/24 11:06 Urine Nitrite (Auto) Positive 12/03/24 11:06 Urine Bilirubin (Auto) 0 mg/dL 12/03/24 11:06 Urine Urobilinogen (Auto) 0.2 mg/dL 12/03/24 11:06 Leukocyte Esterase (Auto) 0 Lloyd/uL 12/03/24 11:06 Assessment & Plan Assessment & Plan (1) Bladder outlet obstruction: Code(s): N32.0 - Bladder-neck obstruction Category: Medical (2) Incomplete emptying of bladder due to benign prostatic hyperplasia: Code(s): N40.1 - Benign prostatic hyperplasia with lower urinary tract symptoms; R33.9 - Retention of urine, unspecified Category: Medical Plan Six-month follow-up office PVR with UA Orders: Orders AMB Urinalysis Automated Today N39.0 - Urinary tract infection, site not specified AMB Post Void Residual by ultrasound Today N40.1 - Benign prostatic hyperplasia with lower urinary tract symptoms, R33.9 - Retention of urine, unspecified Medications: Refilled bethanechol chloride 50 mg PO BID 90 days 180 tabs 1RF N32.0 - Bladder-neck obstruction, N39.0 - Urinary tract infection, site not specified tamsulosin 0.8 mg (2 x 0.4 mg) PO BEDTIME 90 days 180 caps 2RF N32.0 - Bladder- neck obstruction Patient Instructions: This note is constructed using voice recognition software. While every effort has been made to ensure accuracy snuff grinder and screener errors may have been included. Imaging studies, laboratory and physical exam results were discussed and reviewed in detail. No major barriers to patient understanding were identified. An opportunity to ask questions regarding the treatment plan was provided. All questions were answered. The patient expressed understanding and agreement with the above treatment plan. The patient is aware they should contact our office by phone for worsening of their current condition or the appearance of new urologic symptoms. Compliance is encouraged with any medications and followup testing that is ordered. It is a privilege to participate in the urologic care of your patient. If you have any questions or concerns regarding treatment for the above conditions, or other urologic issues, please do not hesitate to contact me. The office telephone contact is [phone]. Sincerely, Dr Jacques Nunez MD, [facility] - Urology Compassionate Specialist Care for the Genitourinary System Coding Level of Care Code Est Pt Level 3 (74873) Complex EM visit Add On G2211 Diagnoses Bladder outlet obstruction N32.0 Incomplete emptying of bladder due to benign prostatic hyperplasia N40.1; R33.9 CPT Codes Post Residual Void - PVR CPT Code: 58850-Arkf Void Residual by ultrasound ( [id number])
--- OUTSIDE RECORDS SUMMARY | 2024-12-03 11:40 | XMS_ITS | Encounter Summary ---
Author Organization [employer] Address [address] [facility] [address] [place] [address] Care Team Providers Care Supply Chain Associate Name Role Phone Kindra Saldivar MD Primary Care Provider [phone] Reason for Visit * Reason Comments Med Refill Encounter Details Date Type Department Care Team ([facility] Contact Info) Description 05/23/2024 Refill [facility] CH[facility] MED & PEDS [address] [place], [place] [phone] Kindra Saldivar MD [address] [place] [address] Social History Tobacco Use Types Packs/Day Years [...] documented as of this encounter Care Teams Supply Chain Associate Relationship Specialty Start Date End Date Kindra Saldivar MD [address] [place] [address] PCP - General Family Medicine 06/22/12 documented as of this encounter
== END 2024-12-03 11:23 | disposition home or self-care (01) ==
LOC: HO.HUSH 10:52
PROVIDERS: PCP Student in an Organized Health Care Education/Training Program; Visit Provider Urology
DX: N32.0 Bladder-neck obstruction (principal); N40.1 Benign prostatic hyperplasia with lower urinary tract symptoms; R33.9 Retention of urine, unspecified; N39.0 Urinary tract infection, site not specified
CPT/HCPCS: 99213; G2211

== ENCOUNTER → 2024-12-03 10:51 | Outpatient (BNVA) | payer MEDICARE, SELFPAY | PROVIDERS: PCP Student in an Organized Health Care Education/Training Program; Visit Provider Urology | DX: N40.1 Benign prostatic hyperplasia with lower urinary tract symptoms (principal); N32.0 Bladder-neck obstruction; R33.8 Other retention of urine; N39.0 Urinary tract infection, site not specified | CPT/HCPCS: 51798; 81003; 99212 ==

== ENCOUNTER 2025-04-01 09:25 | Outpatient (AMB) | payer MEDICARE, SELFPAY ==
--- NOTE | 2025-04-01 09:28 | A.OFFVIS_ITS ---
Vital Signs 04/01/25 09:29 Height 5 ft 7 in Weight 147 lb 11.355 oz BMI 23.1 BP 116/64 Blood Pressure Location Lt brachial Position Sitting Pulse 57 Intake Visit Reasons: 1 yr follow up Intake Note: 1 year follow-up with ekg c/o some chest tightness on the left side Induction Machine Setter Required: Yes Induction Machine Setter Services: Induction Machine Setter Offered & Declined Hydroelectric Plant Structural Engineer: Hydroelectric Plant Structural Engineer Present Accompanied by: friend Allergies No Known Allergies (No Known Allergies*) Allergy (Verified 12/03/24 10:59) Medication List - Last Reconciled 04/01/25 by Norman Garcia MD aspirin 1 tab PO DAILY bethanechol chloride 50 mg PO BID 90 days blood pressure monitor (Blood Pressure Kit) As directed blood sugar diagnostic (FreeStyle Lite Strips) As directed brimonidine 0.2% 1 drp ophthalmic (eye) cilostazol 50 mg PO clobetasol 0.05% grams topical BID clotrimazole-betamethasone 1-0.05 % appl topical empagliflozin (Jardiance) 10 mg PO DAILY glipizide 10 mg PO hydrochlorothiazide 25 mg PO DAILY ibuprofen 0 mg PO lancets (TRUEplus Lancets) As directed lidocaine 5% topical metformin 1,000 mg PO BID nitroglycerin 0.4 mg sublingual rosuvastatin 40 mg PO BEDTIME tamsulosin 0.8 mg (2 x 0.4 mg) PO BEDTIME 90 days HPI Comments Details: Branden comes for follow-up with his friend who acts as water commissioner. They declined a certified water commissioner. Denies any exertional symptoms of chest pain or shortness of breath. Complains of left-sided chest pain which is sharp in nature usually at nighttime and worse with movement. Usually gets better with local application of nonsteroidals creams. Patient is not able to walk much because of claudication but has not been able to see a vascular surgeon for unclear reasons. Patient's insurance network has changed and he can not see providers at [facility] anymore. Taking all his medications. No lightheadedness, syncope. No shortness of breath, orthopnea, PND. Still remains active in his garden. Takes all his medications. [facility] Medical History Diabetes mellitus Hyperlipidemia HTN (hypertension) PVD (peripheral vascular disease) CAD (coronary artery disease) Surgical History History of gastric surgery Hx of CABG Family History Father No problems noted. Mother No problems noted. Sister Cancer Social History Patient Tobacco Use Status: Never used Tobacco Review of Systems Const Denies chills, Denies fatigue, Denies fever(s), Denies frequent falls, Denies weakness, Denies weight gain and Denies weight loss ENT Denies dizziness Card Denies chest pain, Denies leg edema, Denies lightheadedness, Denies palpitations , Denies dyspnea, Denies dyspnea on exertion, Denies orthopnea and Denies other (loss of consciousness) Resp Denies cough, Denies dyspnea and Denies dyspnea on exertion GI Denies hematochezia and Denies change in stool character Musc Denies abnormal gait, Denies muscle weakness, Denies numbness, Denies radiating pain into limb and Denies tingling Neuro Denies Abnormal speech present, Denies abnormal gait, Denies dizziness, Denies frequent falls, Denies numbness, Denies tingling and Denies weakness Endo Denies fatigue and Denies palpitations Physical Exam Vital Signs: Last Vital Signs Pulse 57 04/01/25 09:29 BP 116/64 04/01/25 09:29 BMI result Body Mass Index 23.1 Const General: cooperative, comfortable, no acute distress, alert and awake Nutritional Appearance: average body habitus Orientation/consciousness: patient oriented x3 Limitations: no limitations Neck Neck: Yes trachea midline, Yes supple and Yes no JVD Carotids: no bruits Chest Breast/axilla palpation: other (Well-healed sternotomy scar) Resp Effort & Inspection: normal respiratory effort Auscultation: clear to auscultation bilaterally Cardio Jugular venous distension: no JVD Palpation: normal PMI Rate: regular rate Rhythm: regular rhythm Heart sounds: S1 normal heart sound present, S2 normal heart sound present, no click, no gallops, Murmur heart sound present systolic early and no rubs Peripheral pulses: other (Reduced distal pulses) GI Auscultation: normal bowel sounds Skin General skin exam: no rashes or lesions noted Neuro General: patient oriented x3 and no focal motor deficits Speech: No Abnormal speech present Extrem General: Yes no clubbing, cyanosis or edema Office Procedures EKG Details: EKG shows normal sinus rhythm with left axis deviation with ST T wave changes suggestive of repolarization abnormality [id number], Complete Assessment & Plan Assessment & Plan (1) CAD (coronary artery disease): Code(s): I25.10 - Atherosclerotic heart disease of three affiliated coronary artery without angina pectoris Category: Medical Plan: CAD with remote coronary artery bypass grafting with no current symptoms of angina at current workload. Also has symptoms of claudication. Will assess bilateral varicose vein. Suggest to see vascular surgery in [facility]. For now continue his aggressive medical therapy. Continue low-dose aspirin therapy for life. Continue aggressive blood pressure control, see below. I have prescribed bilateral compression stocking to help with his venous disease. Continue high- intensity statin therapy with target goal LDL less than 70 mg/dL. Advised lipid panel on annual basis. Continue aggressive diabetes management. Goal hemoglobin A1c less than 7%. (2) HTN (hypertension): Code(s): I10 - Essential (primary) hypertension Category: Medical Plan: Hypertension which is currently well optimized on current therapy. Importance of good blood pressure control was discussed. Target goal blood pressure less than 130/84. Advise low-salt diet. Advised to monitor blood pressure at home maintain a log. His recent episode of low blood pressure tachycardia still with diarrhea is related to volume depletion and this was explained to him. In this setting he can take increase salt intake and this was discussed with help of in terpreter. (3) Varicose veins of left lower extremity with inflammation: Code(s): I83.12 - Varicose veins of left lower extremity with inflammation Category: Medical Plan: Bilateral varicose veins, compression stockings advised. Leg elevation should also help. If symptoms do not get better should consider vascular surgery and interventional therapy. Will follow up in the clinic in 1 year's time, sooner PRN. Thank you for allowing me to partake in his care Medications: Changed From nitroglycerin 0.4 mg sublingual angina To nitroglycerin 0.4 mg sublingual ONCE PRN 20 tabs 1RF angina Coding Level of Care Code Est Pt Level 4 (15546) Complex EM visit Add On G2211 Diagnoses CAD (coronary artery disease) I25.10 HTN (hypertension) I10 Varicose veins of left lower extremity with inflammation I83.12 CPT Codes EKG - CPT: 96089-Aniqcwgfmzrstbrhm, Complete ([id number])
[2025-04-01 09:29] VITALS: BP 116/64; PULSE 57; BMI 23.1
--- OUTSIDE RECORDS SUMMARY | 2025-04-01 11:11 | XMS_ITS | Encounter Summary ---
Author Organization [employer] Address [address] [facility] [address] [place] [address] Care Team Providers Care Meatcutter Name Role Phone Kindra Saldivar MD Primary Care Provider [phone] Reason for Visit * Reason Comments Med Refill Encounter Details Date Type Department Care Team ([facility] st Contact Info) Description 11/04/2022 Refill [facility] CHC MED & PEDS [address] [place], [place] [phone] Kindra Saldivar MD [address] [place] [address] Eczema, unspecified type Social History Tobacco Use [...] type documented in this encounter Care Teams Meatcutter Relationship Specialty Start Date End Date Kindra Saldivar MD [address] [place] [id number] PCP - General Family Medicine 06/22/12 documented as of this encounter
--- OUTSIDE RECORDS SUMMARY | 2025-04-01 11:11 | XMS_ITS | Encounter Summary ---
Author Organization [employer] Address [address] [facility] [address] [place] [address] Care Team Providers Care Clerk Guide Name Role Phone Kindra Saldivar MD Primary Care Provider [phone] Reason for Visit * Reason Comments Med Refill Encounter Details Date Type Department Care Team ([facility] st Contact Info) Description 12/31/2023 Refill [facility] CH[facility] MED & PEDS [address] [place], [place] [phone] Jermain Monsalve MD [address] [place] [address] Eczema, unspecified type Social History Tobacco Use [...] documented as of this encounter Care Teams Clerk Guide Relationship Specialty Start Date End Date Kindra Saldivar MD [address] [place] [id number] PCP - General Family Medicine 06/22/12 documented as of this encounter
--- OUTSIDE RECORDS SUMMARY | 2025-04-01 11:11 | XMS_ITS | Encounter Summary ---
Author Organization [employer] Address [address] [facility] [facility] [address] [place] [address] Care Team Providers Care Nut Tightener Name Role Phone Kindra Saldivar MD Primary Care Provider [phone] Reason for Visit * Reason Comments Med Refill Encounter Details Date Type Department Care Team ([facility] st Contact Info) Description 11/04/2024 Refill [facility] CHC MED & PEDS [address] [place] [address] Kindra Saldivar MD [address] [place] [address] Atherosclerosis of coronary artery, unspecified vessel or lesion type, unspecified whether angina present, unspecified whether [place] or transplanted heart Social History Tobacco Use [...] AM EDT documented as of this encounter Functional Status * Over the past 2 weeks, how often have you been bothered by any of the following problems? Question Answer Date of Assessment Author Patient Health Questionnaire -2 Score 2 11/05/2024 10:10 AM EDT Paola [facility]eller MA * Little interest or pleasure in doing things Answer Date of Assessment Author Several days 11/05/2024 10:10 AM EDT Valentina [facility]eller MA * Feeling down, depressed, or hopeless Answer Date of Assessment Author Several days 11/05/2024 10:10 AM Valentina [facility] [place] * Trouble falling or staying asleep, or sleeping too much Answer Date of Assessment Author Not at all 11/05/2024 10:10 AM Valentina [facility] [place] * Feeling tired or having little energy Answer Date of Assessment Author Several days 11/05/2024 10:10 AM Valentina [facility] MA * Poor appetite or overeating Answer Date of Assessment Author Not at all 11/05/2024 10:10 AM ÁLVAROT Valentina [facility]eller MA * Feeling bad about yourself - or that you are a failure or have let yourself or your family down Answer Date of Assessment Author Not at all 11/05/2024 10:10 AM Valentina [facility] MA * Trouble concentrating on things, such as reading the newspaper or watching television Answer Date of Assessment Author Not at all 11/05/2024 10:10 AM Valentina [facility] MA * Moving or speaking so slowly that other people could have noticed? Or the opposite - being so fidgety or restless that you have been moving around a lot more than usual. Answer Date of Assessment Author Not at all 11/05/2024 10:10 AM Valentina [facility] MA * Thoughts that you would be better off or hurting yourself in some way Answer Date of Assessment Author Not at all 11/05/2024 10:10 AM Valentina [facility] MA * Patient Health Questionnaire-9 Score Answer Date of Assessment Author 3 11/05/2024 10:10 AM Valentina [facility] MA * How difficult have these problems made it for you to do your work, take care of things at home, or get along with other people? Answer Date of Assessment Author Not difficult at all 11/05/2024 10:10 AM Paola Trivedi MA documented as of this encounter Plan of Treatment Not on file documented as of this encounter Visit Diagnoses Diagnosis Atherosclerosis of coronary artery, unspecified vessel or lesion type, unspecified whether angina present, unspecified whether [place] or transplanted heart documented in this encounter Additional Health Concerns Assessment Noted Time PHQ-9 Depression Total Score: 0 06/13/20 23 11:29 AM EST documented as of this encounter Care Teams Nut Tightener Relationship Specialty Start Date End Date Kindra Saldivar MD [address] [place] [address] PCP - General Family Medicine 06/22/12 documented as of this encounter
--- OUTSIDE RECORDS SUMMARY | 2025-04-01 11:11 | XMS_ITS | Clinical Summary ---
Author Organization [employer] Address [address] [facility] 7t [place] [address] Care Team Providers Care Warehouseman Name Role Phone Kindra Saldivar MD Primary Care Provider [phone] Allergies No known active allergies Medications cetirizine (ZyrTEC) 10 MG tablet Take 10 mg by mouth 1 (one) time each day. 2 Active valACYclovir (Valtrex) 1 g tablet TAKE TWO TABLETS EVERY TWELVE HOURS FOR TWO DAYS NEEDED COLD SORES 2 Active tamsulosin (Flomax) 0.4 MG 24 hr capsule Take 2 capsules (0.8 mg) by mouth at bedtime. 30 capsule 11 3 Active albuterol 108 (90 Base) MCG/ACT inhaler Inhale 2 puffs every 4 (four) hours if needed for wheezing. INHALE TWO PUFFS BY MOUTH FOUR TIMES DAILY NEEDED 18 g 11 3 Active azelastine (Astelin) 0.1 % nasal spray Administer 1 spray into each nostril 2 times daily. Use in each nostril as directed 30 mL 12 3 Active triamcinolone (Kenalog) 0.1 % creamIndications: Eczema, unspecified type APPLY A THIN LAYER TO THE AFFECTED AREA(s) TWICE DAILY 15 g 11 3 Active albuterol (2.5 MG/3ML) 0.083% nebulizer solution INHALE ONE AMPULE USING A NEBULIZER FOUR TIMES DAILY NEEDED 90 mL 3 3 Active TRUEplus Lancets 33G misc TEST BLOOD SUGAR TWICE DAILY 100 each 11 4 Active nitroglycerin (Nitrostat) 0.4 MG SL tabletIndications :Hypertension, unspecified type DISSOLVE 1 TABLET UNDER THE TONGUE EVERY 5 MINUTES NEEDED FOR CHEST PAIN. DO NOT EXCEED A TOTAL OF 3 DOSES IN 15 MINUTES. 25 tablet 1 4 Active Blood Glucose Monitoring Suppl (FreeStyle Davis Lite) w/Device kit Use to test blood sugar 2 times daily 1 kit 4 Active telmisartan (MIcarDIS) 40 MG tablet Take 1 tablet (40 mg) by mouth Once per day. 90 tablet 3 4 Active meloxicam (Mobic) 7.5 MG tablet Take 1 tablet (7.5 mg) by mouth Once per day. 30 tablet 11 4 05/23/20 25 Active Diclofenac Sodium 1 % gel Apply 4 g topically if needed in the morning and at bedtime (as needed for moderate pain). 50 g 1 4 Active Blood Pressure kit Check blood pressure daily 1 kit 4 Active FREESTYLE LITE test stripIndications: Type 2 diabetes mellitus without complications (CMS/HCC) TEST BLOOD SUGAR TWICE DAILY 50 strip 11 4 Active hydroCHLOROthiazi de (HYDRODiuril) 25 MG tabletIndications :Hypertension, unspecified type TAKE ONE TABLET BY MOUTH EVERY MORNING 90 tablet 3 4 Active Aspirin Low Dose 81 MG chewable tablet CHEW ONE TABLET EVERY MORNING 90 tablet 3 5 Active metFORMIN (Glucophage) 1000 MG tablet TAKE 1 TABLET BY MOUTH TWICE A DAY WITH BREAKFAST AND EVENING MEALS. 180 tablet 3 5 Active cilostazol (Pletal) 50 MG tabletIndications :Atherosclerosis of coronary artery, unspecified vessel or lesion type, unspecified whether angina present, unspecified whether [place] or transplanted heart Take 1 tablet (50 mg) by mouth 2 times daily. 60 tablet 9 5 Active empagliflozin (Jardiance) 10 MG Take 1 tablet (10 mg) by mouth Once per day. 90 tablet 3 5 12/11/19 26 Active rosuvastatin (Crestor) 40 MG tablet TAKE ONE TABLET AT BEDTIME 90 tablet 3 5 Active clotrimazole-beta methasone (Lotrisone) creamIndications: Eczema, unspecified type APPLY TO THE AFFECTED AREA(S) TWICE DAILY 45 g 3 5 Active glipiZIDE (Glucotrol) 10 MG tablet Take 1 tablet (10 mg) by mouth before breakfast and before evening meal. TAKE TWO TABLETS TWICE DAILY BEFORE MEALS 360 tablet 3 5 Active Blood Glucose Monitoring Suppl (Accu-Chek Guide) w/Device kitIndications:Ty pe 2 diabetes mellitus without complication, without long-term current use of insulin ([facility]) 1 each 2 times daily. 1 kit 3 5 Active glucose blood (Accu-Chek Guide Test) test stripIndications: Type 2 diabetes mellitus without complication, without long-term current use of insulin (CMS/[facility]) Check sugars BID 100 each 3 5 03/03/20 Active Accu-Chek Softclix Lancets lancetsIndication s:Type 2 diabetes mellitus without complication, without long-term current use of insulin ([facility]) Use as instructed 100 each 12 5 03/03/20 Active Active Problems Problem Noted Date Diagnosed Date Atherosclerosis of coronary artery 08/27/2013 Diabetes mellitus type 2, uncomplicated 08/27/19 14 Eczema 08/27/2013 Hypercholesterolemia 08/27/2013 Hypertension 08/27/2013 Resolved Problems Problem Noted Date Diagnosed Date Resolved Date Diabetes due to underlying c ondition w oth circulatory comp 05/23/2024 11/05/2024 Encounters Date Type Department Care Team Description 03/25/2025 Orders Only [facility] [address] [place] [address] Kindra Saldivar MD Varicose veins of both lower extremities with inflammation (Primary Dx) 03/19/2025 Telephone [employer] [address] [place] [phone] Kindra Saldivar MD 02/28/2025 Refill [facility] [address] [place] [address] Kindra Saldivar MD Type 2 diabetes mellitus without complication, without long-term current use of insulin ([facility]) 02/11/2025 Telephone [facility] [address] [place] [address] Kindra Saldivar MD Referral 02/05/2025 Telephone [facility] [address] [place] [address] Emi Alonzo, PharmD 01/31/2025 Refill [facility] [address] [facility] [place] [address] Kindra Saldivar MD 01/20/2025 Telephone [facility] [address] [facility] [place] [address] Kindra Saldivar MD Referral 01/03/2025 Telephone [facility] [address] [facility] [place] [address] Kindra Saldivar MD Med Refill 01/03/2025 Refill [facility] [address] [place] [address] Kindra Saldivar MD Eczema, unspecified type from Last 3 Months Immunizations Immunization Administration Dates Next Due Influenza High-dose Quadriva [...] 62 11/05/2024 10:09 AM EDT Temperature 36.4 C (97.5 F) 11/05/2024 10:09 AM EDT Respiratory Rate 20 11/05/2024 10:09 AM EDT [...] Screening 07/20/2022 07/20/2021, 12/08/2020 Diabetes: Hemoglobin A1C 02/19/2025 025, 11/05/2024, 05/23/2024, Additional history exists COVID-19 Vaccine ( season) 2025 04/16/2021, 09/11/2020, 08/21/2020 Influenza Vaccine (#1) 2025 , 05/01/2023, 04/08/2022, Additional history exists Diabetes: Foot Exam 05/23/2025 05/23/2024, 05/23/2024, 05/23/2024, Additional history exists Alcohol/Substance Use Screening 11/05/2025 11/05/2024 Depression Screening 11/05/2025 11/05/2024, 11/06/19 SDOH Screening 11/05/2025 11/05/2024 Tobacco Screening 11/05/2025 11/05/2024 Lipid Panel 11/19/2025 11/19/2024, 05/10, 11/13/2023, Additional history exists DTaP/Tdap/Td Vaccines (2 - Td or Tdap) 12/28/2025 12/29/2015, 06/18/2003 Pneumococcal Vaccine: 50+ Years Completed 04/28/2016, 11/20/2012 Zoster Vaccines Completed 07/18/2023, 05/01/2023 HIB Vaccines Aged Out No longer eligi [...] patient's age to complete this topic Meningococcal B Vaccine Aged Out No l onger eligible based on patient's age to complete [...] Procedure Name Priority Date/Time Associated Diagnosis Comments HEMOGLOBIN A1C Routine 11/19/2024 9:24 AM EDT Type 2 diabetes mellitus without complication, without long-term current use of insulin ([facility]) LIPID PANEL, STANDARD Routine 11/19/2024 9:24 AM EDT Type 2 diabetes mellitus without complication, without long-term current use of insulin ([facility]) Primary hypertension Hypercholesterolemi a ALBUMIN, RANDOM URINE W/CREATININE Routine 07/20/2021 8:56 AM EST from Last 3 Months or Most Recently Relevant to Health Maintenance Results * (ABNORMAL) Hemoglobin A1c (11/19/2024 9:24 AM EDT) Hemoglobin A1c 8.7(H) <6.0 % [facility] Comment:Hemoglobin A1C Refer ence Range Adults: 4.8 - 6.0 % Non diabetic: < 6.0 % Goal: < 7.0 %Additional Action Suggested: > 8.0 %Note: Hemoglobin A1c results are invalid for patients with abnormal amounts of HbF. Blood transfusions may impact the HbA1c concentration in the patient sample. Estimated Average Glucose 203 mg/dL [facility] Comment:eAG = Estimated ave rage glucose which is %A1C expressed asaverage glucose, using the formula of the [id number] Glucose study (ADAG), Diabetes Care, Vol.31,#8,Feb. 2007 Blood Venous blood specimen / Unknown 11/19/2024 9:24 AM EDT 11/19/2024 9:24 AM EDT us Kindra Saldivar MD LAB BLOOD ORDERABLES Final Resul t [facility] [address] [place] [address] [phone] * Lipid Panel, Standard (11/19/2024 9:24 AM EDT) Triglycerides 72 <150 mg/dL [facility] Comment:Desirable Triglyceri de: less than 150 mg/dLBorderline High Triglyceride 150-199 mg/dLHigh Triglyceride: 200-499 mg/dLVery High Triglyceride: greater than or equal to 5OO mg/dL Cholesterol 104 <200 mg/dL [facility] Comment:Desirable Cholestero l: less than 200 mg/dLBorderline High Cholesterol: 200-239 mg/dLHigh Cholesterol: greater than 239 mg/dL LDL Cholesterol Calculated 33 <100 mg/dL [facility] Comment:Desirable LDL: less than 100 mg/dLNear Optimal/Above Optimal LDL: 110- 129 mg/dLBorderline High LDL: 130-159 mg/dLHigh LDL: 160-189 mg/dLVery High LDL: greater than or equal to 190 mg/dL HDL Cholesterol 57 >40 mg/dL [facility] Comment:Desirable HDL: great er than 40 mg/dL Note: This HDL assay may give artificially low results in patients with liver disease. Blood Venous blood specimen / Unknown 11/19/2024 9:24 AM EDT 11/19/2024 9:24 AM EDT us Kindra Saldivar MD LAB BLOOD ORDERABLES Final Resul t Performing Organization Address [facility] Co de Phone Number [facility] [address] [place] [address] [phone] * (ABNORMAL) ALBUMIN, RANDOM URINE W/CREATININE (07/20/2021 8:56 AM EST) Microalbumin Urine 14.3 See Note: mg/dL [facility] Comment: Reference Range: Reference Range Not established Microalb/Creat Ratio 104(H) <30 mcg/mg creat [facility] Comment: The ADA defines abnormalities in albumin excretion as follows: Albuminuria Category Result (mcg/mg creatinine) Normal to Mildly increased <30 Moderately increased 30-299 Severely increased > OR = 300 The ADA recommends that at least two of three specimens collected within a 3-6 month period be abnormal before considering a patient to be within a diagnostic category. Creatinine, Urine 137 20 - 320 mg/dL [facility] 07/20/2021 8:56 AM EST Kindra Saldivar MD LAB URINE ORDERABLES Final Resul t [facility] [address] from Last 3 Months or Most Recently Relevant to Health Maintenance Insurance [facility] [place] [id number] [place] Care Teams Warehouseman Relationship Specialty Start Date End Date Kindra Saldivar MD [address] [place] [phone] PCP - General Family Medicine 06/22/12
--- OUTSIDE RECORDS SUMMARY | 2025-04-01 11:11 | XMS_ITS | Encounter Summary ---
Author Organization [employer] Address [address] [facility] 7[address] [place] [address] Care Team Providers Care Woodworking Bench Carpenter Name Role Phone Kindra Saldivar MD Primary Care Provider [phone] Encounter Details Date Type Department Care Team (Late st Contact Info) Description 06/13/2022 Abstract [facility] [address] [place] [address] ProviderJose MD Social History Tobacco Use Types [...] on filedocumented in this encounter Care Teams Woodworking Bench Carpenter Relationship Specialty Start Date End Date Kindra Saldivar MD [address] [place] [phone] PCP - General Family Medicine 06/22/12 documented as of this encounter
--- OUTSIDE RECORDS SUMMARY | 2025-04-01 11:11 | XMS_ITS | Encounter Summary ---
Author Organization [employer] Address [address] [facility] [address] [place] [address] Care Team Providers Care Golf Club Manager Name Role Phone Kindra Saldivar MD Primary Care Provider [phone] Reason for Visit * Reason Comments Med Refill Encounter Details Date Type Department Care Team ([facility] st Contact Info) Description 10/30/[address] [facility]S [address] [place], [place] [phone] Kindra Saldivar MD [address] [place] [address] Type 2 diabetes mellitus without complications (CMS/[facility]) Social History Tobacco Use Types Packs/Day [...] documented as of this encounter Care Teams Golf Club Manager Relationship Specialty Start Date End Date Kindra Saldivar MD [address] [place] [phone] PCP - General Family Medicine 06/22/12 documented as of this encounter
--- OUTSIDE RECORDS SUMMARY | 2025-04-01 11:11 | XMS_ITS | Encounter Summary ---
Author Organization [employer] Address [address] [facility] 7t [place] [address] Care Team Providers Care Business Coordinator Name Role Phone Kindra Saldivar MD Primary Care Provider [phone] Reason for Visit * Reason Comments Med Refill Encounter Details Date Type Department Care Team ([facility] Contact Info) Description 05/23/2024 Refill [facility]S [address] [place], [place] [phone] Kindra Saldivar MD [address] [place] [address] Social History Tobacco Use Types Packs/Day Years [...] documented as of this encounter Care Teams Business Coordinator Relationship Specialty Start Date End Date Kindra Saldivar MD [address] [place] [address] PCP - General Family Medicine 06/22/12 documented as of this encounter
--- OUTSIDE RECORDS SUMMARY | 2025-04-01 11:11 | XMS_ITS | Encounter Summary ---
Author Organization [employer] Address 75 [facility] 7t [place] [address] Care Team Providers Care Groundskeeping Yardman Name Role Phone Kindra Saldivar MD Primary Care Provider [phone] Reason for Visit * Reason Comments Med Refill Encounter Details Date Type Department Care Team ([facility] st Contact Info) Description 05/03/[address] [facility]EDS [address] [place], [place] [phone] Kindra Saldivar MD [address] [place] [address] Social History Tobacco Use Types Packs/Day Years [...] on filedocumented in this encounter Care Teams Groundskeeping Yardman Relationship Specialty Start Date End Date Kindra Saldivar MD [address] [place] [phone] PCP - General Family Medicine 06/22/12 documented as of this encounter
--- OUTSIDE RECORDS SUMMARY | 2025-04-01 11:11 | XMS_ITS | Encounter Summary ---
Author Organization [employer] Address [address] [facility] 7t [place] [address] Care Team Providers Care Scagliola Mechanic Name Role Phone Kindra Saldivar MD Primary Care Provider [phone] Reason for Visit * Reason Comments Med Refill Encounter Details Date Type Department Care Team ([facility] Contact Info) Description 12/10/2024 Refill [facility]EDS [address] [place], [place] [phone] Kindra Saldivar MD [address] [place] [address] Social History Tobacco Use Types Packs/Day Years [...] Assessment Noted Time PHQ-9 Depression Total Score: 3 11/06/19 25 10:10 AM EDT documented as of this encounter Care Teams Scagliola Mechanic Relationship Specialty Start Date End Date Kindra Saldivar MD [address] [place] [phone] PCP - General Family Medicine 06/22/12 documented as of this encounter
== END 2025-04-01 09:54 | disposition home or self-care (01) ==
LOC: HO.HCS 09:25
PROVIDERS: PCP Student in an Organized Health Care Education/Training Program; Visit Provider Internal Medicine Cardiovascular Disease
DX: I25.10 Atherosclerotic heart disease of native coronary artery without angina pectoris (principal); I10 Essential (primary) hypertension; I83.12 Varicose veins of left lower extremity with inflammation
CPT/HCPCS: 93010; 99214; G2211

== ENCOUNTER → 2025-04-01 09:25 | Outpatient (BNVA) | payer MEDICARE, SELFPAY | PROVIDERS: PCP Student in an Organized Health Care Education/Training Program; Visit Provider Internal Medicine Cardiovascular Disease | DX: I25.10 Atherosclerotic heart disease of native coronary artery without angina pectoris (principal); I10 Essential (primary) hypertension; I83.12 Varicose veins of left lower extremity with inflammation; R94.31 Abnormal electrocardiogram [ECG] [EKG] | CPT/HCPCS: 93005; 99212 ==

== ENCOUNTER 2025-04-16 11:49 | Emergency (ER) | payer MEDICARE, SELFPAY ==
[2025-04-16] VITALS (7 sets, daily range): BP systolic 112–134; BP diastolic 65–81; PULSE 86–124; RESP 14–18; TEMP 36.3–36.7; O2SAT 95–99; BMI 22.6
--- NOTE | ~2025-04-16 | XR_ITS ---
EXAMINATION: XR CHEST CLINICAL INFORMATION: weakness COMPARISON: 10/14/2022. TECHNIQUE: Frontal view of the chest was obtained. 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 The cardiac, hilar, and mediastinal contours are normal. Aortic mural calcifications. Lungs are clear bilaterally and well pneumatized. There is an oval density overlying the left posterolateral sixth rib, unchanged from prior examinations. There is no effusion or pneumothorax. No focal osseous or soft tissue abnormality. There are old right rib fractures. There are spinal degenerative changes. XR/XR chest 1V IMPRESSION: 1. No active pulmonary disease. 2. Prior sternotomy and CABG. Electronically signed by: Daniel Weaver MD 04/16/2025 01:37 PM EDT
--- NOTE | 2025-04-16 12:03 | ECG_ITS ---
Test Reason : TACHY Blood Pressure : */* mmHG Vent. Rate : 124 BPM Atrial Rate : 124 BPM P-R Int : 216 ms QRS Dur : 106 ms QT Int : 294 ms P-R-T Axes : * -42 111 degrees QTcB Int : 422 ms Sinus tachycardia with 1st degree A-V block Left axis deviation Minimal voltage criteria for LVH, may be normal variant ( Jesus product ) ST & T wave abnormality, consider lateral ischemia Abnormal ECG When compared with ECG of 15-Oct-2013 19:48, CT interval has increased Vent. rate has increased by [address] now depressed in Lateral leads Referred By: Generic ED Physician Electronically Signed By: BRYANT SHERWOOD MD
[2025-04-16 12:29] LABS: MANUAL DIFF FLAG NO
[2025-04-16 12:34] LABS: Hematocrit 44.0 % (42.0-52.0); Hemoglobin 14.9 g/dl (14.0-18.0); Imm Gran Abs Auto 0.02 X10*3/uL (0.00-0.03); Imm Gran Pct Auto 0.4 % (0.0-0.4); Lymphocytes Absolute Auto 1.7 X10*3/uL (1.2-4.9); Mean Corpuscular HGB Conc 33.9 g/dl (31.0-36.0); Mean Corpuscular Hemoglobin 29.8 pg (27.0-33.0); Mean Corpuscular Volume 88.0 fL (80.0-98.0); NRBC Abs Auto 0.000 X10*3/uL (0.0-0.012); NRBC Pct Auto 0.0 /100WBC (0.0-0.2); Platelet Count 132 X10*3/uL (160-400); Red Blood Count 5.00 X10*6/uL (4.60-5.80); White Blood Count 5.5 X10*3/uL (4.8-10.8)
[2025-04-16 12:39] LABS: INTERNATIONAL NORM RATIO 1.1 (0.9-1.1); Prothrombin Time 12.4 SEC (10.9-12.4)
--- NOTE | 2025-04-16 12:49 | ED.CHESTPAIN ---
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 Patient has had history of hypotension, which resulted in similar symptoms and tachycardia, patient does have angina and had angina today times 3 times, at the time of the arrival to the ER he was asymptomatic. He states that he was having his morning routine and he started getting very sweaty, weak almost passing out, his heart rate was 105, then he decided to lay down and then eat a banana and episodes repeated twice more with varying degrees of heart rate. At the time of my evaluation he had no shortness of breath no chest pain no nausea or vomiting or diaphoresis. Related Data Home Medications ?Medication ?Instructions ?Recorded ?Confirmed aspirin 81 mg chewable tablet 1 tab PO DAILY 03/23/21 04/01/25 cilostazol 50 mg tablet 50 mg PO 03/23/21 04/01/25 hydrochlorothiazide 25 mg tablet 25 mg PO DAILY 03/23/21 04/01/25 ibuprofen 400 mg tablet 0 mg PO 03/23/21 04/01/25 metformin 1,000 mg tablet 1,000 mg PO BID 03/23/21 04/01/25 blood sugar diagnostic (FreeStyle #10 ea 03/30/21 12/05/23 Lite Strips) lancets 33 gauge (TRUEplus Lancets) #100 ea 03/30/21 12/05/23 lidocaine 5 % topical ointment topical 03/30/21 04/01/25 clotrimazole-betamethasone 1 appl topical 05/04/21 04/01/25 %-0.05 % topical cream clobetasol 0.05 % topical cream g topical BID 06/15/21 04/01/25 glipizide 10 mg tablet 10 mg PO 08/23/22 04/01/25 brimonidine 0.2 % eye drops 1 drp ophthalmic (eye) 09/23/25 09/23/25 empagliflozin 10 mg tablet 10 mg PO DAILY 04/01/25 04/01/25 (Jardiance) Previous Rx's ?Medication ?Instructions ?Recorded blood pressure monitor (Blood #1 ea 03/24/22 Pressure Kit) rosuvastatin 40 mg tablet 40 mg PO BEDTIME #90 tabs 03/24/22 bethanechol chloride 50 mg tablet 50 mg PO BID 90 days #180 tabs 12/03/24 tamsulosin 0.4 mg capsule 0.8 mg (2 x 0.4 mg) PO BEDTIME 90 12/03/24 days #180 caps nitroglycerin 0.4 mg sublingual 0.4 mg sublingual ONCE PRN angina 04/01/25 tablet #20 tabs Allergies Allergy/AdvReac Type Severity Reaction Status Date / Time No Known Allergies (No Known Allergy Verified 04/16/25 12:20 Allergies*) Review of Systems Constitutional: Constitutional: Reports as per [facility] Past Medical History Medical History Diabetes mellitus Hyperlipidemia HTN (hypertension) PVD (peripheral vascular disease) CAD (coronary artery disease) Surgical History History of gastric surgery Hx of CABG Family History Family History Father No problems noted. Mother No problems noted. Sister Cancer Social History Social History Patient Tobacco Use Status: Never used Tobacco Advance Directives: No Advance Directives Information Provided: Yes Physical Exam Vital Signs: Vital Signs: Last Vital Signs Temp 98.1 F 04/16/25 12:09 Pulse 102 H 04/16/25 13:44 Resp 16 04/16/25 13:41 BP 119/81 04/16/25 13:44 Pulse Ox 96 04/16/25 13:41 O2 Del Method Room Air 04/16/25 13:41 BMI result Body Mass Index 22.6 Const: Other: General: ?Appears of stated age ? ?PERRLA, EOMI, MMM, ? Neck: Supple, no LAD ? ?CV: RRR, radial pulses +2 bilaterally ? ?Resp: ?No wheezing rales rhonchi no stridor moving air well ? Abd: ?Bowel sounds are present, no tenderness no rebound no rigidity ? ?MSK: FROM, strength 5/5 all extremities, varicose veins bilateral lower extremities ? Skin: Warm, dry, intact, ? ?Neuro: ?Alert and oriented x3, moving upper and lower extremities symmetrically, no obvious facial asymmetry noted, cranial nerves 2-12 intact, no vertical or horizontal nystagmus, no dysmetria upper or lower extremities Medications Administered Discontinued Medications Generic Name Dose Route Start Last Admin Trade Name Abhinav PRN Reason Stop Dose Admin Sodium Chloride 1,000 mls @ 999 mls/hr 04/16/25 13:15 04/16/25 15:10 Ns IV 04/16/25 14:15 Infused .Q1H1M STACEY Infusion Medical Decision Making Medical Decision Making MDM Narrative: 1:16 PM 04/16/2025 (Dr. Keith Vasquez): Patient presented with 3 episodes of diaphoresis while standing, some resolution when he was lying flat, as well as chest pain, at the end of March he had a visit to Dr. Garcia and they have discussed hypovolemia, hypotension and to me it sounds like he might have had some vasovagal episodes or orthostasis, his initial troponin is unremarkable, when he presented he was tachycardic, during our discussion his heart rate was down to mid 90s with with positional it would go up to over 100, he is not having pleurisy but I will work him up for ACS and I did not find any evidence of asymmetric swelling of the lower extremities to suspect DVT, we will check cardiac enzymes at least x2, we will check orthostatics, disposition to be determined 3:02 PM 04/16/2025 (Dr. Keith Vasquez): His heart rate went down to mid 60s with IV fluids, blood pressure remained stable, he has been asymptomatic, I have discussed workup with him, he states he is very hungry and would like to be discharged, and I confirmed that patient has had no dysuria, urine will be sent for culture he does have bacteria in his urine some nitrites without leukocytes and he grew out staph epidermidis in the past Differential Diagnosis Differential Diagnoses: The differential diagnosis associated with the presentation includes (Vasovagal syncope, orthostatic hypotension, PE, ACS, dysrhythmia, aortic dissection, dehydration) Admission/Observation Consideration of admission/observation: Escalation of care including admission/observation considered Lab Data MDM Lab Attestation statement: I reviewed the patient's lab results. 04/16/25 12:23 Labs: Lab Results 04/16/25 04/16/25 04/16/25 Range/Units 12:23 13:23 13:41 WBC 5.5 (4.8-10.8) X10*3/uL RBC 5.00 (4.60-5.80) X10*6/uL Hgb 14.9 (14.0-18.0) g/dl Hct 44.0 (42.0-52.0) % MCV 88.0 (80.0-98.0) fL MCH 29.8 (27.0-33.0) pg MCHC 33.9 (31.0-36.0) g/dl RDW 13.8 (11.0-16.0) % Plt Count 132 L (160-400) X10*3/uL MPV 10.4 (9.4-12.4) fL Immature Gran % (Auto) 0.4 (0.0-0.4) % Neut % (Auto) 64.3 (45-73) % Lymph % (Auto) 30.3 (20-40) % [place]bs % (Auto) 3.6 (2-11) % Eos % (Auto) 0.7 (0-4) % Baso % (Auto) 0.7 (0-2) % Lymph # (Auto) 1.7 (1.2-4.9) X10*3/uL [place] # (Auto) 0.2 (0.1-1.2) X10*3/uL Eos # (Auto) 0.0 (0.0-0.4) X10*3/uL Baso # (Auto) 0.0 (0.0-0.2) X10*3/uL Abs Immat Gran (auto) 0.02 (0.00-0.03) X10*3/uL Absolute Neuts (auto) 3.5 (2.0-8.3) x10*3/uL Absolute Nucleated RBC 0.000 (0.0-0.012) X10*3/uL Nucleated RBC % (auto) 0.0 (0.0-0.2) /100WBC PT 12.4 (10.9-12.4) SEC INR 1.1 (0.9-1.1) D-Dimer High Sensitivty < 150 NG/ML Troponin I High Sens 10.5 14.3 (<3.5-35.0) ng/L Urine Color Yellow Urine Appearance Clear Urine pH 5.5 (5.0-9.0) Ur Specific [place] 1.025 (1.005-1.025) Urine Protein Negative (Neg-Trace) mg/dL Urine Glucose (UA) >=1000 H (Negative) mg/dL Urine Ketones Negative (Negative) mg/dL Urine Blood Negative (Negative) Urine Nitrite Positive H (Negative) Ur Leukocyte Esterase Negative (Negative) Urine RBC 0-2 (0-2) /HPF Urine WBC 0-5 (0-5) /HPF Ur Squamous Epith Cells 0-2 (0-2) /HPF Urine Bacteria 4+ (None Seen) Hyaline Casts 0-2 (0-2) /LPF Independent Interpretation I performed an independent interpretation of an: EKG (One hundred twenty-four sinus tachycardia, left axis deviation with LVH) and Plain X-Ray (My independent chest xray interpretation: Lungs: Lungs are clear bilaterally without evidence of focal consolidation, pleural effusion, or pneumothorax. Cardiac silhouette is unremarkable, no obvious mediastinal widening, no obvious bony abnormalities such as fractures. Impression: Normal chest X-r) Radiology Impression Discussion of test interpretation with radiology: I have reviewed the radiologist's reading. Independent Historian Clinical information obtained from an independent historian. History obtained from or confirmed by: EMS External Record Review External record reviewed: Outpatient record Discharge Plan Discharge Clinical Impression: Chest pain, precordial, Tachycardia Patient Disposition: Home, Self-Care Additional Instructions: Evaluated with chest pain, sweating, fast heart rate, as discussed based on your presentation I suspect you had low blood pressure, and I did want to make sure that your heart was not affected as you were having chest pain, your cardiac enzymes checked twice has been reassuring, I also ran a blood work to make sure to have any blood clots, you received fluids, your heart rate improved with IV fluids suggesting a degree of dehydration, urine cultures pending if you have a positive culture you will get a phone call for antibiotics. Prescriptions: No Action aspirin 81 mg tablet,chewable 1 tab PO DAILY cilostazol 50 mg tablet 50 mg PO ibuprofen 400 mg tablet 0 mg PO hydrochlorothiazide 25 mg tablet 25 mg PO DAILY metformin 1,000 mg tablet 1,000 mg PO BID lidocaine 5 % ointment topical (DME) lancets [TRUEplus Lancets] 33 gauge misc See Rx Instructions topical .MEDSUPPLY Qty: 100 Rx Instructions: As directed (DME) FreeStyle Lite Strips Strip See Rx Instructions Not Applicable BID Qty: 10 Rx Instructions: As directed clotrimazole-betamethasone 1-0.05 % cream topical clobetasol 0.05 % cream topical BID rosuvastatin 40 mg tablet 40 mg PO BEDTIME Qty: 90 3RF (DME) blood pressure monitor [Blood Pressure Kit] Kit See Rx Instructions .Route Qty: 1 0RF Rx Instructions: As directed glipizide 10 mg tablet 10 mg PO brimonidine 0.2 % drops 1 drp ophthalmic (eye) Jardiance 10 mg tablet 10 mg PO DAILY nitroglycerin 0.4 mg tablet, sublingual 0.4 mg sublingual ONCE PRN (Reason: angina) Qty: 20 1RF tamsulosin 0.4 mg capsule 0.8 mg PO BEDTIME 90 Days Qty: 180 2RF bethanechol chloride 50 mg tablet 50 mg PO BID 90 Days Qty: 180 1RF Referrals: Kindra Saldivar MD [Primary Care Provider, Internal Medicine] - 2 weeks Clinical Impression: Tachycardia; Chest pain, precordial Print Language: Hebrew
[2025-04-16 12:56] LABS: Troponin-I High Sensitivity 10.5 ng/L (<3.5-35.0)
[2025-04-16 13:53] LABS: Troponin-I High Sensitivity 14.3 ng/L (<3.5-35.0)
[2025-04-16 13:55] LABS: Appearance Urine Clear; Glucose Urine UA >=1000 mg/dL (Negative); PH 5.5 (5.0-9.0); Specific Gravity - Urine 1.025 (1.005-1.025); UMIC TRIGGER UACC YES
[2025-04-16 13:58] LABS: UACC Culture Trigger YES
[2025-04-16 14:10] LABS: D Dimer High Sensitivity < 150 NG/ML
[2025-04-16 17:39] LABS: Alanine Aminotransferase 21 U/L (0-40); Albumin Level 4.4 g/dL (3.5-5.0); Alkaline Phosphatase 67 U/L (39-117); Anion Gap 14 (12-20); Aspartate Amino Transferase 28 U/L (5-37); Blood Urea Nitrogen 16 mg/dL (9-16); Calcium 9.7 mg/dL (8.4-10.2); Carbon Dioxide 24 mmol/L (22-29); Chloride 109 mmol/L (96-108); Creatinine Clr Calc Pharmacy 60.5; Estimated Glomerular Filt Rate > 60; Potassium 3.9 mmol/L (3.3-5.1); Sodium 143 mmol/L (135-145); Total Protein 6.8 g/dL (6.5-8.0)
== END 2025-04-16 15:39 | disposition home or self-care (01) ==
PROVIDERS: Emergency Provider Emergency Medicine; PCP Student in an Organized Health Care Education/Training Program
DX: R07.2 Precordial pain (principal); R00.0 Tachycardia, unspecified; I25.10 Atherosclerotic heart disease of native coronary artery without angina pectoris; I10 Essential (primary) hypertension; E11.9 Type 2 diabetes mellitus without complications; Z95.1 Presence of aortocoronary bypass graft
CPT/HCPCS: 36415; 71045; 80053; 81001; 84484; 85025; 85379; 85610; 87086; 93005; 96360; 96361; 99284

== ENCOUNTER → 2025-04-16 12:03 | Outpatient (BNV) | payer MEDICARE, SELFPAY | PROVIDERS: Emergency Provider Emergency Medicine; PCP Student in an Organized Health Care Education/Training Program; Visit Provider Internal Medicine Cardiovascular Disease | DX: I44.0 Atrioventricular block, first degree (principal); R00.0 Tachycardia, unspecified | CPT/HCPCS: 93010 ==

== ENCOUNTER → 2025-04-16 13:08 | Outpatient (BNV) | payer MEDICARE, SELFPAY | PROVIDERS: Emergency Provider Emergency Medicine; PCP Student in an Organized Health Care Education/Training Program; Visit Provider Radiology Diagnostic Radiology | DX: R53.1 Weakness (principal); Z95.1 Presence of aortocoronary bypass graft; Z98.890 Other specified postprocedural states | CPT/HCPCS: 71045 ==

== ENCOUNTER 2025-05-21 08:17 | Outpatient (REF) | payer MEDICARE, SELFPAY ==
--- NOTE | ~2025-05-21 | XR_ITS ---
EXAMINATION: XR PELVIS CLINICAL INFORMATION: M25.559 - Pain in unspecified hip COMPARISON: None available. TECHNIQUE: AP view of the pelvis. FINDINGS: Moderate right hip arthritis. Moderate left hip arthritis. No visible acute fracture or dislocation. Old left inferior pubic ramus fracture redemonstrated. SI joints and symphysis pubis are intact. Small sclerotic focus in the right acetabulum, unchanged from previous. Stable 1.3 cm sclerotic focus in the right supra-acetabular region. Spondylosis in the visualized lumbar spine. Vascular calcification. No suspicious soft tissue findings. XR/XR pelvis 1-2V IMPRESSION: * Moderate bilateral hip joint arthritis. * Redemonstrated old left inferior pubic ramus fracture. * Stable 1.3 cm sclerotic focus in the right supra-acetabular region. Electronically signed by: Robin Rodriguez MD 05/21/2025 04:16 PM LILIANA CARUSO
--- NOTE | ~2025-05-21 | US_ITS ---
EXAMINATION: US LOWER EXTREMITY VENOUS (REFLUX EXAM), BILATERAL CLINICAL INFORMATION: Status post CABG, 2007. COMPARISON: None. TECHNIQUE: Color flow triplex imaging and compression Doppler was performed to evaluate both the deep and the superficial systems bilaterally. To evaluate the superficial system, the examination was performed in the upright position. Color-flow Doppler ultrasound and compression ultrasound were utilized. In addition, maneuvers were utilized to demonstrate reflux. FINDINGS: 1. DEEP VENOUS ULTRASOUND OF THE RIGHT LOWER EXTREMITY: Common Femoral Vein: Compressible, normal respiratory variation and augmented flow. Femoral Vein: Compressible, normal color flow and augmentation. Popliteal Vein: Compressible, normal augmentation. Deep Reflux: There is no evidence of reflux in the deep system in either the common femoral vein, superficial femoral or the popliteal vein. There is no evidence of a Dennison's cyst. 2. SUPERFICIAL ULTRASOUND WITH DOPPLER OF RIGHT LOWER EXTREMITY: GREAT SAPHENOUS VEIN: Saphenofemoral Junction: 0.5 cm; Reflux: 0 ms Proximal Thigh: 0.3 cm; Reflux: 0 ms Mid Thigh: Not present. Distal Thigh: 0.2 cm; Reflux: 0 ms At Knee: 0.3 cm; Reflux: 0 ms Proximal Calf: 0.3 cm; Reflux: 2524 ms Mid Calf: 0.2 cm; Reflux: 2756 ms Distal Calf: 0.2 cm; Reflux: 1968 ms DUPLICATED MEDIAL GREAT SAPHENOUS VEIN: Diameter: None imaged Reflux: NA DUPLICATED LATERAL GREAT SAPHENOUS VEIN: Diameter: 0.2 cm. Reflux: NA SMALL SAPHENOUS VEIN: Saphenopopliteal Junction: 0.2 cm; Reflux: 0 ms Proximal: 0.3 cm; Reflux: 0 ms Distal: 0.2 cm; Reflux: 0 ms VEIN OF GIACOMINI: Size: NA Reflux: NA PERFORATORS: Location: Proximal and mid calf Size: 0.5 and 0.1 cm respectively. Reflux: NA VARICOSITIES: Location: None imaged. Size: NA Reflux: NA 3. DEEP VENOUS ULTRASOUND OF THE LEFT LOWER EXTREMITY: Common Femoral Vein: Compressible, normal respiratory variation and augmented flow. Femoral Vein: Compressible, normal color flow and augmentation. Popliteal Vein: Compressible, normal augmentation. Deep Reflux: 1236 ms in the mid segment of the femoral vein. 1776 ms in the popliteal vein. There is no evidence of a Dennison's cyst. 4. SUPERFICIAL ULTRASOUND WITH DOPPLER OF LEFT LOWER EXTREMITY: GREAT SAPHENOUS VEIN: Saphenofemoral Junction: 0.6 cm; Reflux: 0 ms Proximal Thigh: 0.5 cm; Reflux: 0 ms Mid Thigh: Not identified. Distal Thigh: Not identified. At Knee: Not identified. Proximal Calf: Not identified. Mid Calf: Not identified. Distal Calf: Not identified. DUPLICATED MEDIAL GREAT SAPHENOUS VEIN: Diameter: None imaged Reflux: NA DUPLICATED LATERAL GREAT SAPHENOUS VEIN: Diameter: 0.3 cm. Reflux: NA SMALL SAPHENOUS VEIN: Saphenopopliteal Junction: 0.8 cm; Reflux: 8 ms Proximal: 0.3 cm; Reflux: 2464 ms Distal: 0.2 cm; Reflux: 0 ms VEIN OF GIACOMINI: Size: NA Reflux: NA PERFORATORS: Location: None imaged Size: NA Reflux: NA VARICOSITIES: Location: None Imaged Size: NA Reflux: NA US/US venous duplex LE BI IMPRESSION: Right: Venous insufficiency, great saphenous vein from below the knee to the ankle. Perforators without reflux in the calf. Left: Venous insufficiency, small saphenous vein at the junction and midcalf. The deep venous system reflux in the mid segment of the femoral vein and popliteal vein. Electronically signed by: Ralf Miller MD 05/21/2025 09:26 AM LILIANA
--- OUTSIDE RECORDS SUMMARY | 2025-05-21 08:24 | XMS_ITS | Encounter Summary ---
Author Organization [employer] Address [address] [facility] [address] [place] [address] Care Team Providers Care Harvest Supervisor Name Role Phone Kindra Saldivar MD Primary Care Provider [phone] Steve Deluna CNP Primary Care Provider [phone] Reason for Visit * Reason Comments Med Refill Encounter Details Date Type Department Care Team ([facility] Contact Info) Description 11/04/2022 Refill [facility] CHC MED & PEDS [address] [place], [place] [phone] Kindra Saldivar MD [address] [place], [place] [phone] Eczema, unspecified type Social History Tobacco Use [...] type documented in this encounter Care Teams Harvest Supervisor Relationship Specialty Start Date End Date Kindra Saldivar MD [address] [place] [phone] PCP - General Family Medicine 06/22/12 05/06/25 Steve Deluna CNP [address] [place] [id number] PCP - General Family Medicine 05/07/25 documented as of this encounter
--- OUTSIDE RECORDS SUMMARY | 2025-05-21 08:24 | XMS_ITS | Encounter Summary ---
Author Organization [employer] Address [address] [facility] [address] [place] [address] Care Team Providers Care Hand Wood Sander Name Role Phone Kindra Saldivar MD Primary Care Provider [phone] Steve Deluna CNP Primary Care Provider [phone] Encounter Details Date Type Department Care Team ([facility] st Contact Info) Description 06/13/2022 Abstract [facility] MED & PEDS [address] [place], [place] [phone] Provider, MD Jose Social History Tobacco Use Types Packs/Day Years [...] on filedocumented in this encounter Care Teams Hand Wood Sander Relationship Specialty Start Date End Date Kindra Saldivar MD [address] [place] [address] PCP - General Family Medicine 06/22/12 05/06/25 Steve Deluna CNP [address] [place] [address] PCP - General Family Medicine 05/07/25 documented as of this encounter
--- OUTSIDE RECORDS SUMMARY | 2025-05-21 08:24 | XMS_ITS | Encounter Summary ---
Author Organization [employer] Address [address] [facility] [address] [place] [address] Care Team Providers Care Functional Mental Disability Teacher Name Role Phone Kindra Saldivar MD Primary Care Provider [phone] Steve Deluna CNP Primary Care Provider [phone] Reason for Visit * Reason Comments Med Refill Encounter Details Date Type Department Care Team ([facility] [address] Contact Info) Description 12/10/2024 Refill [facility] CHC MED & PEDS [address] [place], [place] [phone] Kindra Saldivar MD [address] [place] [address] Social History Tobacco Use Types Packs/Day Years [...] Time PHQ-9 Depression Total Score: 3 11/06/19 10:10 AM EDT documented as of this encounter Care Teams Functional Mental Disability Teacher Relationship Specialty Start Date End Date Kindra Saldivar MD [address] [place] [phone] PCP - General Family Medicine 06/22/12 05/06/25 Steve Deluna CNP [address] [place] [id number] PCP - General Family Medicine 05/07/25 documented as of this encounter
--- OUTSIDE RECORDS SUMMARY | 2025-05-21 08:24 | XMS_ITS | Encounter Summary ---
Author Organization [employer] Address [address] [place] [address] [address] [place] [address] Care Team Providers Care Marine Equipment Engineer Name Role Phone Kindra Saldivar MD Primary Care Provider [phone] Steve Deluna CNP Primary Care Provider [phone] Reason for Visit * Reason Comments Med Refill Encounter Details Date Type Department Care Team ([facility] Contact Info) Description 05/03/2023 Refill [facility] CHC MED & PEDS [address] [place], [place] [phone] Kindra Saldivar MD [address] [place], [place] [phone] Social History Tobacco Use Types Packs/Day Years [...] on filedocumented in this encounter Care Teams Marine Equipment Engineer Relationship Specialty Start Date End Date Kindra Saldivar MD [address] [place] [address] PCP - General Family Medicine 06/22/12 05/06/25 Steve Deluna CNP [address] [place] [address] PCP - General Family Medicine 05/07/25 documented as of this encounter
--- OUTSIDE RECORDS SUMMARY | 2025-05-21 08:24 | XMS_ITS | Encounter Summary ---
Author Organization [employer] Address [address] [facility] [address] [place] [address] Care Team Providers Care Beauty Parlor Cleaner Name Role Phone Kindra Saldivar MD Primary Care Provider [phone] Steve Deluna CNP Primary Care Provider [phone] Reason for Visit * Reason Comments Med Refill Encounter Details Date Type Department Care Team ([facility] Contact Info) Description 05/23/2024 Refill [facility] CHC MED & PEDS [address] [place], [place] [phone] Kindra Saldivar MD [address] [place], [place] [phone] Social History Tobacco Use Types Packs/Day Years [...] documented as of this encounter Care Teams Beauty Parlor Cleaner Relationship Specialty Start Date End Date Kindra Saldivar MD [address] [place] [address] PCP - General Family Medicine 06/22/12 05/06/25 Steve Deluna CNP [address] [place] [address] PCP - General Family Medicine 05/07/25 documented as of this encounter
--- OUTSIDE RECORDS SUMMARY | 2025-05-21 08:24 | XMS_ITS | Clinical Summary ---
Author Organization [employer] Address [address] [facility] 7t [place] [address] Care Team Providers Care Client Care Coordinator Name Role Phone Steve Deluna TESHA Primary Care Provider [phone] Allergies No known active allergies Medications cetirizine [...] 4 Active Blood Glucose Monitoring Suppl (FreeStyle Phoenix Lite) w/Device kit Use to test blood sugar 2 times daily 1 kit 4 Active meloxicam (Mobic) 7.5 MG tablet [...] stripIndications: Type 2 diabetes mellitus without complications (HCC) TEST BLOOD SUGAR TWICE DAILY 50 strip [...] type, unspecified whether angina present, unspecified whether nondalton or transplanted heart Take 1 tablet (50 [...] complication, without long-term current use of insulin (HCC) 1 each 2 times daily. 1 kit 3 5 Active glucose blood (Accu-Chek Guide Test) test stripIndications: Type 2 diabetes mellitus without complication, without long-term current use of insulin ([facility]) Check sugars BID 100 each 3 5 03/03/20 Active Accu-Chek Softclix Lancets lancetsIndication s:Type 2 diabetes mellitus without complication, without long-term current use of insulin ([facility]) Use as instructed 100 each 12 5 03/03/20 Active telmisartan (MIcarDIS) 40 MG tablet TAKE ONE TABLET DAILY 90 tablet 3 Active Active Problems Problem Noted Date Diagnosed Date Atherosclerosis of coronary artery 08/27/2013 Diabetes mellitus type 2, uncomplicated 08/27/19 14 Eczema 08/27/2013 Hypercholesterolemia 08/27/2013 Hypertension 08/27/2013 Resolved Problems Problem Noted Date Diagnosed Date Resolved Date Diabetes due to underlying c ondition w oth circulatory comp 05/23/2024 11/05/2024 Encounters Date Type Department Care Team Description 05/19/2025 Telephone [facility] MEDICINE [address] [place] [phone] Steve Deluna CNP 05/08/2025 11:00 AM EDT Office Visit [facility] MED [facility] PEDS [address] [place] [address] Kindra Saldivar MD Type 2 diabetes mellitus without complication, without long-term current use of insulin (HCC) (Primary Dx); Primary hypertension; Hypercholesterolemia 05/08/2025 Travel 05/05/2025 Telephone [facility] MED & PEDS [address] [place] [address] Kindra Saldivar MD Transition Of Care (Tcm) 05/03/2025 Telephone [facility] WALK-IN CENTER [address] [place] [phone] Kindra Saldivar MD Chart Prep 04/25/2025 Patient Outreach [facility] MEDICINE [address] [place] [phone] Kindra Saldivar MD Pre-visit Planning (Pre visit planning LVM ) 04/16/2025 Orders Only GENERIC EXTERNAL DATA DEPARTMENT Provider, Generic External Data 04/04/2025 Refill [facility] [address] [facility] [place] [address] Kindra Saldivar MD 04/04/2025 Telephone [facility] [address] [facility] [place] [address] Kindra Saldivar MD Med Refill 03/25/2025 Orders Only [facility] [address] [facility] [address] [place] [phone] Kindra Saldivar MD Varicose veins of both lower extremities with inflammation (Primary Dx) 03/19/2025 Telephone [facility] [address] [place] [address] [phone] Kindra Sadlivar MD 02/28/2025 Refill [facility] [address] [facility] [place], [place] [phone] Kindra Saldivar MD Type 2 diabetes mellitus without complication, without long-term current use of insulin ([facility]) from Last 3 Months Immunizations Immunization Administration Dates Next Due Influenza High-dose Quadriva lent Preservative Free 05/01/2023,04/08/2022,05/04/2021,04/08 Influenza injectable quadriv alent IIV4 with preservative 05/28/2019,04/24/2018,03/29/2016,04/07 Influenza, High Dose Seasona l, Preservative Free 05/13/2024,04/18/2017 Influenza, IIV3, injectable 04/15/2014, 7 Influenza, Split (incl. geovany fied surface antigen) 04/25/2016,04/05/2013,04/17/2012 Pfizer Covid-19 Vaccine 12+ 09/11/2020, Pneumococcal Conjugate PCV 13 04/28/2016 Pneumococcal Polysaccharide PPSV23 04/18/2014, Td (adult), unspecified 06/18/2003 Tdap 12/29/2015 Zoster, [...] Sign Reading Time Taken Comments Blood Pressure 144/60 05/08/2025 11:15 AM EDT Pulse 83 05/08/2025 11:15 AM EDT Temperature 36.3 C (97.3 F) 05/08/2025 11:15 AM EDT Respiratory Rate 20 05/08/2025 11:15 AM EDT Oxygen Saturation 97% 05/23/2024 9:08 AM EST Inhaled Oxygen Concentration - - Weight 70.3 kg (155 lb) 05/08/2025 11:15 AM EDT Height 170.2 cm (5' 7 ) 05/08/2025 11:15 AM EDT Body Mass Index 24.28 05/08/2025 11:15 AM EDT Plan of Treatment Health Maintenance Due Date Last Done Comments Eye Exam 01/18/1950 RSV Patients and Patients Aged 60 years or older (1 - 1-dose 75+ series) 01/18/2015 Diabetes: Urine Protein Screening 07/20/2022 07/20/2021, 12/08/2020 COVID-19 Vaccine ( season) 2025 04/16/2021, 09/11/2020, 08/21/2020 Influenza Vaccine (#1) 2025 , 05/01/2023, 04/08/2022, Additional history exists Diabetes: Foot Exam 05/23/2025 05/23/2024, 05/23/2024, 05/23/2024, Additional history exists Diabetes: Hemoglobin A1C 08/08/2025 025, 11/19/2024, 11/05/2024, Additional history exists Alcohol/Substance Use Screening 11/05/2025 11/05/2024 Depression Screening 11/05/2025 11/05/2024, 11/06/19 25 SDOH Screening 11/05/2025 11/05/2024 Lipid Panel 11/19/2025 11/19/2024, 05/10, 11/13/2023, Additional history exists DTaP/Tdap/Td Vaccines (2 - Td or Tdap) 12/28/2025 12/29/2015, 06/18/2003 Tobacco Screening 05/08/2026 05/08/2025 Pneumococcal Vaccine: 50+ Years Completed 04/28/2016, 04/18/2014, 11/20/2012 Zoster Vaccines Completed 07/18/2023, 05/01/2023 HIB [...] Diagnosis Comments POCT GLYCATED HEMOGLOBIN, TOTAL Routine 05/08/2025 11:22 AM EDT Type 2 diabetes mellitus without complication, without long-term current use of insulin ([facility]) POCT GLUCOSE Routine 05/08/2025 11:17 AM EDT Type 2 diabetes mellitus without complication, without long-term current use of insulin ([facility]) URINALYSIS, COMPLETE, WITH REFLEX TO CULTURE Routine 04/16/2025 1:41 PM EDT D DIMER HIGH SENSITIVITY Routine 04/16/2025 1:23 PM EDT HIGH SENSITIVITY TROPONIN I Routine 04/16/2025 1:23 PM EDT XR CHEST 1 VIEW Routine 04/16/2025 1:19 PM EDT CULTURE, URINE, ROUTINE Routine 04/16/2025 12:00 AM EDT LIPID PANEL, STANDARD Routine 11/19/2024 9:24 AM EDT Type 2 diabetes mellitus without complication, without long-term current use of insulin ([facility]) Primary hypertension Hypercholesterolemi a ALBUMIN, RANDOM URINE W/CREATININE Routine 07/20/2021 8:56 AM EST from Last 3 Months or Most Recently Relevant to Health Maintenance Results * (ABNORMAL) POCT Hgb A1c (05/08/2025 11:22 AM EDT) Hemoglobin A1C 8.0 4.0 - 5.7 % QC Media Lot # [id number] Lot# Expiration Date , Blood 05/08/2025 11:2 2 AM EDT us Kindra Saldivar MD POINT OF CARE TEST ENTER/EDIT OR DERABLES Final Result * POCT Glucose (05/08/2025 11:17 AM EDT) Glucose Blood, POC 141 60 - 200 mg/dL QC Media Lot # [id number] Lot# Expiration Date [id number] Blood Capillary blood specimen / Unknown 05/08/2025 11:17 AM EDT us Kindra Saldivar MD POINT OF CARE TEST ENTER/EDIT OR DERABLES Final Result * (ABNORMAL) Urinalysis, Complete, with Reflex to Culture (04/16/2025 1:41 PM EDT) Color Urine Yellow [facility] Appearance Urine Clear [facility] PH 5.5 5.0 - 9.0 [facility] Glucose Urine UA >=1000(A) Negative mg/dL [facility] Urine Blood Negative Negative [facility] Specific [place] - Urine 1.025 1.005 - 1.025 [facility] Urine Protein Negative Neg-Trace mg/dL [facility] Urine Ketones Negative Negative mg/dL [facility] Nitrite Urine Positive(A) Negative [facility] Leukocyte Esterase Urine Negative Negative [facility] RBC Urine 0-2 0 - 2 /HPF [facility] Urine WBC 0-5 0 - 5 /HPF [facility] Urine Squamous Epithelial Cell 0-2 0 - 2 /HPF [facility] Urine Bacteria 4+ None Seen [facility] Hyaline Casts, Urine 0-2 0 - 2 /LPF [facility] 04/16/2025 1:41 PM EDT 04/16/2025 1:49 PM EDT Narrative [facility] - 04/16/2025 2:00 PM EDT Urine, Clean Catch Generic External Data Provider LAB URINE ORDERAB LES Final Result Performing Organization Address [facility] de Phone Number [facility] [address] [place] [phone] * D Dimer High Sensitivity (04/16/2025 1:23 PM EDT) [facility] D Dimer High Sensitivity <150 NG/ML [facility] Comment:D-DIMER HS REFERENCE RANGENote: Our assay reports D-Dimer Units (D- DU).The cut-off value for venous thromboembolic (VTE) disease is230 ng/mL. This value has a very high negative predictivevalue when the patient has a low to moderate clinicalprobability of VTE.The upper limit of normal is 243 ng/mL. 04/16/2025 1:23 PM EDT 04/16/2025 1:28 PM EDT Generic External Data Provider LAB BLOOD ORDERAB LES Final Result Performing Organization Address [facility] Co de Phone Number [facility] [address] [place] [phone] * High Sensitivity Troponin I (04/16/2025 1:23 PM EDT) Pathologist [facility] TROPONIN I HIGH SENSITIVITY 14.3 <3.5 - 35.0 ng/L [facility] Comment:The Banda high sens itivity Troponin-I results should beused in conjunction with other diagnostic information suchas ECG, clinical observations and information, and patientsymptoms to aid in the diagnosis of SD. 04/16/2025 1:23 PM EDT 04/16/2025 1:28 PM EDT us Generic External Data Provider LAB BLOOD ORDERAB LES Final Result [facility] [address] [place] [phone] * XR Chest 1 View (04/16/2025 1:19 PM EDT) Anatomical Region Laterality Modality Chest Radiographic Shelby ging 04/16/2025 1:19 PM EDT Narrative 04/16/2025 1:40 PM EDT [address] [address] XRay Report Signed Patient: Branden Gibson MR#: [id number] 19 : 1940 Acct:[id number] Age/Sex: 85 / M ADM Date: 04/16/25 Loc: HO.ED Attending Dr: Ordering Physician: Keith Vasquez DO Date of Service: 04/16/25 Procedure(s): XR chest 1V Accession Number(s): [id number] cc: Kindra Saldivar MD; Keith Vasquez DO Reason for Exam: weakness EXAMINATION: XR CHEST CLINICAL INFORMATION: weakness COMPARISON: 10/14/2022. TECHNIQUE: Frontal view of the chest was obtained. 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 The cardiac, hilar, and mediastinal contours are normal. Aortic mural calcifications. Lungs are clear bilaterally and well pneumatized. There is an oval density overlying the left posterolateral sixth rib, unchanged from prior examinations. There is no effusion or pneumothorax. No focal osseous or soft tissue abnormality. There are old right rib fractures. There are spinal degenerative changes. XR/XR chest 1V IMPRESSION: 1. No active pulmonary disease. 2. Prior sternotomy and CABG. Electronically signed by: Daniel Weaver MD 04/16/2025 01:37 PM EDT Dictated By: Daniel Weaver MD Signed By: <Electronically signed by Daniel Weaver MD in OV> 04/16/251336 DD/ 18 TD/TT: 04/16/258 Customer Leader: Procedure Note Donotmorisinterpreter, Image - 04/16/[address] [address] XRay Report Signed Patient: Herminio Gibson#: [id number] [birth year] : 1940Acct:[id number] Age/Sex: 85 / MADM Date: 04/16/25 Loc: .ED Attending Dr: Ordering Physician: Keith Vasquez DO Date of Service: 04/16/25 Procedure(s): XR chest 1V Accession Number(s): [id number] cc: Kindra Saldivar MD; Keith Vasquez DO Reason for Exam: weakness EXAMINATION: XR CHEST CLINICAL INFORMATION: weakness COMPARISON: 10/14/2022. TECHNIQUE: Frontal view of the chest was obtained. 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 The cardiac, hilar, and mediastinal contours are normal. Aortic mural calcifications. Lungs are clear bilaterally and well pneumatized. There is an oval density overlying the left posterolateral sixth rib, unchanged from prior examinations. There is no effusion or pneumothorax. No focal osseous or soft tissue abnormality. There are old right rib fractures. There are spinal degenerative changes. XR/XR chest 1V IMPRESSION: 1. No active pulmonary disease. 2. Prior sternotomy and CABG. Electronically signed by: Daniel Weaver MD 04/16/2025 01:37 PM EDT Dictated By: Daniel Weaver MD Signed By: <Electronically signed by Daniel Weaver MD in OV> 04/16/251336 DD/ 18 TD/TT: 04/16/25 132 Customer Leader: [facility] External Provider IMG XR PROCEDURES Final Result * Culture, Urine, Routine (04/16/2025 12:00 AM EDT) Urine Urine specimen obtained by clean catch procedure / Unknown 04/16/2025 04/16/2025 Comment:UACC Narrative [facility] - 04/17/2025 10:39 AM EDT Urine Culture Report Result Urine Culture > 100,000 cfu/ml Urine Culture Mixed bacterial denise characteristic of Urine Culture urogenital contamination. Specimen Source: Urine clean catch us Generic External Data Provider LAB MICROBIOLOGY - GENERAL ORDERABLES Final Result Performing Organization Address City/[facility]/ZIP Co de Phone Number [facility] [address] [place] [phone] * Lipid Panel, Standard (11/19/2024 9:24 AM EDT) Triglycerides 72 <150 mg/dL [facility] Comment:Desirable Triglyceri de: less than 150 mg/dLBorderline High Triglyceride 150-199 mg/dLHigh Triglyceride: 200-499 mg/dLVery High Triglyceride: greater than or equal to 5OO mg/dL Cholesterol 104 <200 mg/dL [facility] Comment:Desirable Cholestero l: less than 200 mg/dLBorderline High Cholesterol: 200-239 mg/dLHigh Cholesterol: greater than 239 mg/dL LDL Cholesterol Calculated 33 <100 mg/dL [facility] Comment:Desirable LDL: less than 100 mg/dLNear Optimal/Above Optimal LDL: 110- 129 mg/dLBorderline High LDL: 130-159 mg/dLHigh LDL: 160-189 mg/dLVery High LDL: greater than or equal to 190 mg/dL HDL Cholesterol 57 >40 mg/dL [facility] Comment:Desirable HDL: great er than 40 mg/dL Note: This HDL assay may give artificially low results in patients with liver disease. Blood Venous blood specimen / Unknown 11/19/2024 9:24 AM EDT 11/19/2024 9:24 AM EDT us Kindra Saldivar MD LAB BLOOD ORDERABLES Final Resul t Performing Organization Address City/[facility]/ZIP Co de Phone Number [facility] [address] [place] [phone] * (ABNORMAL) ALBUMIN, RANDOM URINE W/CREATININE (07/20/2021 8:56 AM EST) Microalbumin Urine 14.3 See Note: mg/dL [facility] Comment: Reference Range: Reference Range [...] Final Resul t [facility] Anywhere [address] from Last 3 Months or Most Recently Relevant to Health Maintenance Insurance [facility] MEDICARE ADVANTAGE JOANN MOTA [id number] Care Teams Client Care Coordinator Relationship Specialty Start Date End Date Steve Deluna CNP [address] [place] [address] JOANN MOTA [phone] PCP - General Family Medicine 05/07/25
--- OUTSIDE RECORDS SUMMARY | 2025-05-21 08:24 | XMS_ITS | Encounter Summary ---
Author Organization [employer] Address [address] [facility] [address] [place] [address] Care Team Providers Care Label Folder Name Role Phone Steve Deluna CNP Primary Care Provider [phone] Encounter Details Date Type Department Care Team (Late st Contact Info) Description 05/19/2025 Telephone [facility] MEDICINE [address] [place] [address] Steve Deluna CNP [address] [place], [place] [phone] Social History Tobacco Use Types Packs/Day Years [...] encounter Miscellaneous Notes * Telephone Encounter - Bandar Harper - 05/19/2025 3:44 PM EST Contacted patient on 05/19/25 to offer CDTM - Diabetes. Patient declined services. documented in this encounter Plan of Treatment Not on file documented as of this encounter Visit Diagnoses Not on filedocumented in this encounter Additional Health Concerns Assessment Noted Time PHQ-9 Depression Total Score: 3 11/06/19 10:10 AM EDT documented as of this encounter Care Teams Label Folder Relationship Specialty Start Date End Date Steve Deluna CNP [address] [place] [phone] PCP - General Family Medicine 05/07/25 documented as of this encounter
--- OUTSIDE RECORDS SUMMARY | 2025-05-21 08:25 | XMS_ITS | Encounter Summary ---
Author Organization [employer] Address [address] [facility] 7t [place] [address] Care Team Providers Care Watch Crystal Grinder Name Role Phone Kindra Saldivar MD Primary Care Provider [phone] Steve Deluna CNP Primary Care Provider [phone] Reason for Visit * Reason Comments Med Refill Encounter Details Date Type Department Care Team ([facility] Contact Info) Description 11/04/2024 Refill [facility] MED & PEDS [address] [place], [place] [phone] Kindra Saldivar MD [address] [place] [address] Atherosclerosis of coronary artery, unspecified vessel or lesion type, unspecified whether angina present, unspecified whether [place] or transplanted heart Social History Tobacco Use [...] Questionnaire -2 Score 2 11/05/2024 10:10 AM ÁLVAROT Paola Moeller [place] * Little interest or pleasure in doing things Answer Date of Assessment Author Several days 11/05/2024 10:10 AM ÁLVAROT Valentina Moeller MA * Feeling down, depressed, or hopeless Answer Date of Assessment Author Several days 11/05/2024 10:10 AM ÁLVAROT Valentina Moeller MA * Trouble falling or staying asleep, [...] 10:10 AM Valentina Thurman MA * Feeling bad about yourself - [...] type, unspecified whether angina present, unspecified whether o[place] or transplanted heart documented in this encounter Additional Health Concerns Assessment Noted Time PHQ-9 Depression Total Score: 0 06/13/20 23 11:29 AM EST documented as of this encounter Care Teams Watch Crystal Grinder Relationship Specialty Start Date End Date Kindra Saldivar MD [address] [place] [address] PCP - General Family Medicine 06/22/12 05/06/25 Steve Deluna CNP [address] [place] [address] PCP - General Family Medicine 05/07/25 documented as of this encounter
--- OUTSIDE RECORDS SUMMARY | 2025-05-21 08:25 | XMS_ITS | Encounter Summary ---
Author Organization [employer] Address [address] [facility] 7t [place] [address] Care Team Providers Care Broadcast Transmitter Operator Name Role Phone Kindra Saldivar MD Primary Care Provider [phone] Steve Deluna CNP Primary Care Provider [phone] Reason for Visit * Reason Comments Med Refill Encounter Details Date Type Department Care Team ([facility] st Contact Info) Description 12/31/2023 Refill [facility] MED & PEDS [address] [place], [place] [phone] Jermain Monsalve MD [address] [place] [address] Eczema, unspecified type Social History Tobacco Use [...] documented as of this encounter Care Teams Broadcast Transmitter Operator Relationship Specialty Start Date End Date Kindra Saldivar MD [address] [place] [phone] PCP - General Family Medicine 06/22/12 05/06/25 Steve Deluna CNP [address] [place] [phone] PCP - General Family Medicine 05/07/25 documented as of this encounter
--- OUTSIDE RECORDS SUMMARY | 2025-05-21 08:25 | XMS_ITS | Encounter Summary ---
Author Organization [employer] Address [address] [facility] 7t [place] [address] Care Team Providers Care Ceramic Tile Setter Name Role Phone Kindra Saldivar MD Primary Care Provider [phone] Steve Deluna CNP Primary Care Provider [phone] Reason for Visit * Reason Comments Med Refill Encounter Details Date Type Department Care Team ([facility] Contact Info) Description 10/30/2023 Refill [facility] MED & PEDS [address] [place], [place] [phone] Kindra Saldivar MD [address] [place], [place] [phone] Type 2 diabetes mellitus without complications (CMS/HCC) Social History Tobacco Use Types Packs/Day Years [...] Diagnosis Type 2 diabetes mellitus without complications (HCC) documented in this encounter Additional Health Concerns Assessment Noted Time PHQ-9 Depression Total Score: 0 06/13/20 23 11:29 AM EST documented as of this encounter Care Teams Ceramic Tile Setter Relationship Specialty Start Date End Date Kindra Saldivar MD [address] [place] [phone] PCP - General Family Medicine 06/22/12 05/06/25 Steve Deluna CNP [address] [place] [phone] PCP - General Family Medicine 05/07/25 documented as of this encounter
== END 2025-05-21 08:18 | disposition home or self-care (01) ==
LOC: HO.US 08:17
PROVIDERS: PCP Student in an Organized Health Care Education/Training Program; Visit Provider Student in an Organized Health Care Education/Training Program
DX: I83.11 Varicose veins of right lower extremity with inflammation (principal); I83.12 Varicose veins of left lower extremity with inflammation; M25.559 Pain in unspecified hip
CPT/HCPCS: 72170; 93970

== ENCOUNTER → 2025-05-21 08:36 | Outpatient (BNV) | payer MEDICARE, SELFPAY | PROVIDERS: PCP Student in an Organized Health Care Education/Training Program; Visit Provider Radiology Diagnostic Radiology | DX: I87.2 Venous insufficiency (chronic) (peripheral) (principal); M16.0 Bilateral primary osteoarthritis of hip | CPT/HCPCS: 72170; 93970 ==

== ENCOUNTER 2025-06-03 08:56 | Outpatient (AMB) | payer MEDICARE, SELFPAY ==
--- NOTE | 2025-06-03 09:01 | MHC.OFFVIS ---
Intake Visit Reasons: 6M PVR/UA Check Intake Note: Patient is present for 6M/PVR/UA Urology Medication:TAMSULOSIN,BETHANECOL Antibiotic Allergy:NONE Blood Thinner:ASPIRIN TODAY'S PVR:157ML'S Custom Shoe Designer And Maker Required: No Allergies No Known Allergies (No Known Allergies*) Allergy (Verified 06/03/25 09:01) HPI Comments Details: Branden is a very pleasant [place]istanian male. He is a patient of Dr. Saldivar. He is seen for the following urologic conditions - bladder outlet obstruction - incomplete bladder emptying Six-month follow-up Remains on bethanechol and tamsulosin. Prior PVR 300. PVR today 160. UA with 3+ glucose Twelve month follow-up Has been placed on SGLT2 Lower urinary tract symptoms primarily incomplete emptying Longstanding Current treatment tamsulosin 0.8 mg High PVR 120 cc Office investigations - 08/31 cystoscopy with open bladder neck PSA - 11/30 0.8, 12/01 0.88 Background diabetes HBA1c 8.4% Nephrolithiasis Prior diagnosis of stones with ESWL in the past No recent imaging PFSH Medical History Diabetes mellitus Hyperlipidemia HTN (hypertension) PVD (peripheral vascular disease) CAD (coronary artery disease) Surgical History History of gastric surgery Hx of CABG Family History Father No problems noted. Mother No problems noted. Sister Cancer Social History Patient Tobacco Use Status: Never used Tobacco Review of Systems Const Denies chills and Denies fever(s) Card Reports no additional complaints and Denies syncope Resp Denies cough GI Denies abdominal pain and Denies heartburn Reports as per HPI and Denies change in libido Neuro Denies syncope Psych Denies change in libido Endo Denies change in libido Physical Exam Const General: cooperative, healthy appearing, comfortable and no acute distress Orientation/consciousness: patient oriented x3 HEENT Face and sinus: Yes normal facial exam Mouth: moist mucous membranes Neck Neck: Yes normal visual inspection, Yes full ROM and Yes trachea midline Chest Chest palpation & inspection: normal inspection of the chest Resp Effort & Inspection: normal respiratory effort, able to speak in complete sentences and no respiratory distress GI Inspection: Yes normal to inspection Back/Spine/Pelvis Cervical Spine: normal cervical lordosis Thoracic/Lumbar Spine: thoracic and lumbar spine normal to inspection Skin General skin exam: no rashes or lesions noted Neuro General: patient oriented x3, gait normal, tone normal and moves all extremities Extrem General: Yes normal to inspection and Yes capillary refill normal Office Procedures Post Void Residual Post Residual Void Post Void Residual (PVR): 157 25406-Shhs Void Residual by ultrasound Results AMB Urinalysis, Automated UA Leukoctes 0 Lloyd/uL Last Edit by NANCY Cabello on 06/03/25 09:15 UA Nitrite Positive Last Edit by NANCY Cabello on 06/03/25 09:15 UA Urobilinogen 0.2 mg/dL Last Edit by NANCY Cabello on 06/03/25 09:15 UA Protein 0 mg/dL Last Edit by NANCY Cabello on 06/03/25 09:15 UA pH 6.0 Last Edit by Giovana Moore CCM on 06/03/25 09:15 UA Blood 0 Kaleb/uL Last Edit by NANCY Cabello on 06/03/25 09:15 UA Specific Flaxton 1.010 Last Edit by NANCY Cabello on 06/03/25 09:15 UA Ketone Negative Last Edit by NANCY Cabello on 06/03/25 09:15 UA Bilirubin 0 mg/dL Last Edit by NANCY Cabello on 06/03/25 09:15 UA Glucose 1000 mg/dL Last Edit by NANCY Cabello on 06/03/25 09:15 Results Reviewed Results Reviewed: Laboratory Last Values Urine pH (Auto) 6.0 06/03/25 09:14 Specific Flaxton (Auto) 1.010 06/03/25 09:14 Urine Protein (Auto) 0 mg/dL 06/03/25 09:14 Glucose (UA)(Auto) 1000 mg/dL 06/03/25 09:14 Urine Ketones (Auto) Negative 06/03/25 09:14 Urine Blood (Auto) 0 Kaleb/uL 06/03/25 09:14 Urine Nitrite (Auto) Positive 06/03/25 09:14 Urine Bilirubin (Auto) 0 mg/dL 06/03/25 09:14 Urine Urobilinogen (Auto) 0.2 mg/dL 06/03/25 09:14 Leukocyte Esterase (Auto) 0 Lloyd/uL 06/03/25 09:14 Assessment & Plan Assessment & Plan (1) Bladder outlet obstruction: Code(s): N32.0 - Bladder-neck obstruction Category: Medical (2) Incomplete emptying of bladder due to benign prostatic hyperplasia: Code(s): N40.1 - Benign prostatic hyperplasia with lower urinary tract symptoms; R33.9 - Retention of urine, unspecified Category: Medical Plan Twelve month follow-up Orders: Orders AMB Urinalysis Automated Today Z13.9 - Encounter for screening, unspecified Prostate Specific Antigen 12 Months N32.0 - Bladder-neck obstruction Medications: Refilled tamsulosin 0.8 mg (2 x 0.4 mg) PO BEDTIME 180 caps 3RF 90 days N32.0 - Bladder-neck obstruction bethanechol chloride 50 mg PO BID 180 tabs 3RF 90 days N32.0 - Bladder-neck obstruction, N39.0 - Urinary tract infection, site not specified Patient Instructions: This note is constructed using voice recognition software. While every effort has been made to ensure accuracy director community organization errors may have been included. Imaging studies, laboratory and physical exam results were discussed and reviewed in detail. No major barriers to patient understanding were identified. An opportunity to ask questions regarding the treatment plan was provided. All questions were answered. The patient expressed understanding and agreement with the above treatment plan. The patient is aware they should contact our office by phone for worsening of their current condition or the appearance of new urologic symptoms. Compliance is encouraged with any medications and followup testing that is ordered. It is a privilege to participate in the urologic care of your patient. If you have any questions or concerns regarding treatment for the above conditions, or other urologic issues, please do not hesitate to contact me. The office telephone contact is [phone]. Sincerely, Dr Jacques Nunez MD, [facility] - Urology Compassionate Specialist Care for the Genitourinary System Coding Level of Care Code Est Pt Level 4 (59872) Diagnoses Bladder outlet obstruction N32.0 Incomplete emptying of bladder due to benign prostatic hyperplasia N40.1; R33.9 CPT Codes Post Residual Void - PVR CPT Code: 49054-Mcaz Void Residual by ultrasound ([id number])
--- OUTSIDE RECORDS SUMMARY | 2025-06-03 09:33 | XMS_ITS | Encounter Summary ---
Author Organization [employer] Address [address] [facility] 7t [place] [address] Care Team Providers Care Budget Coordinator Name Role Phone Kindra Saldivar MD Primary Care Provider [phone] Steve Deluna CNP Primary Care Provider [phone] Reason for Visit * Reason Comments Med Refill Encounter Details Date Type Department Care Team ([facility] Contact Info) Description 11/04/2024 Refill [facility] CHC MED & PEDS [address] [place], [place] [phone] Kindra Saldivar MD [address] [place] [address] Atherosclerosis of coronary artery, unspecified vessel or lesion type, unspecified whether angina present, unspecified whether cantwell or transplanted heart Social History Tobacco Use [...] type, unspecified whether angina present, unspecified whether cantwell or transplanted heart documented in this encounter Additional Health Concerns Assessment Noted Time PHQ-9 Depression Total Score: 0 06/13/20 23 11:29 AM EST documented as of this encounter Care Teams Budget Coordinator Relationship Specialty Start Date End Date Kindra Saldivar MD [address] [place] [address] PCP - General Family Medicine 06/22/12 05/06/25 Steve Deluna CNP [address] [place] [address] PCP - General Family Medicine 05/07/25 documented as of this encounter
--- OUTSIDE RECORDS SUMMARY | 2025-06-03 09:33 | XMS_ITS | Encounter Summary ---
Author Organization [employer] Address [address] [facility] 7t [place] [address] Care Team Providers Care Field Applications Specialist Name Role Phone Kindra Saldivar MD Primary Care Provider Steve Deluna CNP Primary Care Provider [phone] Reason for Visit * Reason Comments Med Refill Encounter Details Date Type Department Care Team ([facility] Contact Info) Description 12/10/2024 Refill [facility] CHC MED & PEDS [address] [place], [place] [phone] Kindra Saldivar MD [address] [place], [place] [phone] Social History Tobacco Use Types Packs/Day Years [...] documented as of this encounter Care Teams Field Applications Specialist Relationship Specialty Start Date End Date Kindra Saldivar MD [address] [place] [address] PCP - General Family Medicine 06/22/12 05/06/25 Steve Deluna CNP [address] [place] [address] PCP - General Family Medicine 05/07/25 documented as of this encounter
--- OUTSIDE RECORDS SUMMARY | 2025-06-03 09:33 | XMS_ITS | Encounter Summary ---
Author Organization [employer] Address [address] [facility] 7t [place] [address] Care Team Providers Care Mobile Lounge Driver Name Role Phone Kindra Saldivar MD Primary Care Provider [phone] Steve Deluna CNP Primary Care Provider [phone] Reason for Visit * Reason Comments Med Refill Encounter Details Date Type Department Care Team ([facility] Contact Info) Description 10/30/2023 Refill [facility] CHC MED & PEDS [address] [place], [place] [phone] Kindra Saldivar MD [address] [place], [place] [phone] Type 2 diabetes mellitus without complications (CMS/HCC) [...] documented as of this encounter Care Teams Mobile Lounge Driver Relationship Specialty Start Date End Date Kindra Saldivar MD [address] [place] [address] PCP - General Family Medicine 06/22/12 05/06/25 Steve Deluna CNP [address] [place] [address] PCP - General Family Medicine 05/07/25 documented as of this encounter
--- OUTSIDE RECORDS SUMMARY | 2025-06-03 09:33 | XMS_ITS | Encounter Summary ---
Author Organization [employer] Address [address] [place] [address] 7t [place] [address] Care Team Providers Care Fish Conservationist Name Role Phone Kindra Saldivar MD Primary Care Provider [phone] Steve Deluna CNP Primary Care Provider [phone] Reason for Visit * Reason Comments Med Refill Encounter Details Date Type Department Care Team ([facility] Contact Info) Description 05/03/2023 Refill [facility] CHC MED & PEDS [address] [place], [place] [phone] Kindra Saldivar MD [address] [place], [place] [phone] Social History Tobacco Use Types Packs/Day Years [...] on filedocumented in this encounter Care Teams Fish Conservationist Relationship Specialty Start Date End Date Kindra Saldivar MD [address] [place] [address] PCP - General Family Medicine 06/22/12 05/06/25 Steve Deluna CNP [address] [place] [address] PCP - General Family Medicine 05/07/25 documented as of this encounter
--- OUTSIDE RECORDS SUMMARY | 2025-06-03 09:33 | XMS_ITS | Encounter Summary ---
Author Organization [employer] Address [address] [facility] 7t [place] [address] Care Team Providers Care Supervisor Claims Name Role Phone Kindra Saldivar MD Primary Care Provider [phone] Steve Deluna CNP Primary Care Provider [phone] Reason for Visit * Reason Comments Med Refill Encounter Details Date Type Department Care Team ([facility] Contact Info) Description 05/23/2024 Refill [facility] CHC MED & PEDS [address] [place], [place] [phone] Kindra Saldivar MD [address] [place], [place] [phone] Social History Tobacco Use Types Packs/Day Years [...] documented as of this encounter Care Teams Supervisor Claims Relationship Specialty Start Date End Date Kindra Saldivar MD [address] [place] [address] PCP - General Family Medicine 06/22/12 05/06/25 Steve Deluna CNP [address] [place] [address] PCP - General Family Medicine 05/07/25 documented as of this encounter
--- OUTSIDE RECORDS SUMMARY | 2025-06-03 09:33 | XMS_ITS | Encounter Summary ---
Author Organization [employer] Address [address] [facility] 7t [place] [address] Care Team Providers Care Lehr Stripper Name Role Phone Kindra Saldivar MD Primary Care Provider [phone] Steve Deluna CNP Primary Care Provider [phone] Encounter Details Date Type Department Care Team ([facility] Contact Info) Description 06/13/2022 Abstract [facility] MED & PEDS [address] [place], [place] [phone] Provider, MD oJse Social History Tobacco Use Types Packs/Day Years [...] on filedocumented in this encounter Care Teams Lehr Stripper Relationship Specialty Start Date End Date Kindra Saldivar MD [address] [place] [address] PCP - General Family Medicine 06/22/12 05/06/25 Steve Deluna CNP [address] [place] [address] PCP - General Family Medicine 05/07/25 documented as of this encounter
--- OUTSIDE RECORDS SUMMARY | 2025-06-03 09:33 | XMS_ITS | Encounter Summary ---
Author Organization [employer] Address [address] [facility] 7t [place] [address] Care Team Providers Care Roofing Technician Name Role Phone Kindra Saldivar MD Primary Care Provider [phone] Steve Deluna CNP Primary Care Provider [phone] Reason for Visit * Reason Comments Med Refill Encounter Details Date Type Department Care Team ([facility] Contact Info) Description 11/04/2022 Refill [facility] CHC MED & PEDS [address] [place], [place] [phone] Kindra Saldivar MD [address] [place], [place] [phone] Eczema, unspecified type Social History Tobacco Use [...] type documented in this encounter Care Teams Roofing Technician Relationship Specialty Start Date End Date Kindra Saldivar MD [address] [place] [address] PCP - General Family Medicine 06/22/12 05/06/25 Steve Deluna CNP [address] [place] [address] PCP - General Family Medicine 05/07/25 documented as of this encounter
--- OUTSIDE RECORDS SUMMARY | 2025-06-03 09:33 | XMS_ITS | Encounter Summary ---
Author Organization [employer] Address [address] [facility] 7t [place] [address] Care Team Providers Care Scouring Machine Tender Name Role Phone Kindra Saldivar MD Primary Care Provider [phone] Steve Deluna CNP Primary Care Provider [phone] Reason for Visit * Reason Comments Med Refill Encounter Details Date Type Department Care Team ([facility] st Contact Info) Description 12/31/2023 Refill [facility] CHC MED & PEDS [address] [place], [place] [phone] Jermain Monsalve MD [address] [place] [address] Eczema, unspecified type Social History Tobacco Use [...] documented as of this encounter Care Teams Scouring Machine Tender Relationship Specialty Start Date End Date Kindra Saldivar MD [address] [place] [address] PCP - General Family Medicine 06/22/12 05/06/25 Steve Deluna CNP [address] [place] [address] PCP - General Family Medicine 05/07/25 documented as of this encounter
--- OUTSIDE RECORDS SUMMARY | 2025-06-03 09:33 | XMS_ITS | Clinical Summary ---
Author Organization [facility] Address [address] [facility] [address] [place] [address] Care Team Providers Care Home Service Demonstrator Name Role Phone Steve Deluna TESHA Primary Care Provider [phone] Allergies No known active allergies Medications cetirizine [...] 4 Active Blood Glucose Monitoring Suppl (FreeStyle [place] Lite) w/Device kit Use to test blood sugar 2 times daily 1 kit 4 Active Diclofenac Sodium 1 % gel Apply [...] BY MOUTH EVERY MORNING 90 tablet 3 06/02/2025 1:56 PM EST 4 Active Aspirin Low Dose 81 MG chewable tablet CHEW ONE TABLET EVERY MORNING 90 tablet 3 5 Active metFORMIN (Glucophage) 1000 MG tablet TAKE 1 TABLET BY MOUTH TWICE A DAY WITH BREAKFAST AND EVENING MEALS. 180 tablet 3 5 Active cilostazol (Pletal) 50 MG tabletIndications :Atherosclerosis of coronary artery, unspecified vessel or lesion type, unspecified whether angina present, unspecified whether [place] or transplanted heart Take 1 tablet (50 mg) by mouth 2 times daily. 60 tablet 9 5 Active empagliflozin (Jardiance) 10 MG Take 1 tablet (10 mg) by mouth Once per day. 90 tablet 3 5 026 Active rosuvastatin (Crestor) 40 MG tablet TAKE [...] without long-term current use of insulin (HCC) Check sugars BID 100 each 3 5 026 Active Accu-Chek Softclix Lancets lancetsIndication s:Type 2 diabetes mellitus without complication, without long-term current use of insulin (HCC) Use as instructed 100 each 12 5 026 Active telmisartan (MIcarDIS) 40 MG tablet TAKE ONE TABLET DAILY 90 tablet 3 5 Active meloxicam (Mobic) 7.5 MG tablet Take 1 tablet (7.5 mg) by mouth Once per day. 30 tablet 11 4 025 Active Problems Problem Noted Date Diagnosed Date Atherosclerosis of coronary artery 08/27/2013 Diabetes mellitus type 2, uncomplicated 08/27/19 14 Eczema 08/27/2013 Hypercholesterolemia 08/27/2013 Hypertension 08/27/2013 Resolved Problems Problem Noted Date Diagnosed Date Resolved Date Diabetes due to underlying c ondition w oth circulatory comp 05/23/2024 11/05/2024 Encounters Date Type Department Care Team Description 05/21/2025 Orders Only [facility] External Provider, [facility] 05/19/2025 Telephone [facility] [address] [place] [phone] Steve Deluna CNP 05/08/2025 11:00 AM EDT Office Visit [facility] [address] [place] [address] Kindra Saldivar MD Type 2 diabetes mellitus without complication, without long-term current use of insulin (HCC) (Primary Dx); Primary hypertension; Hypercholesterolemia 05/08/2025 Travel 05/05/2025 Telephone [facility] [address] [place] [address] Kindra Saldivar MD Transition Of Care (Tcm) 05/03/2025 Telephone [facility] [address] [place] [phone] Kindra Saldivar MD Chart Prep 04/25/2025 Patient Outreach [facility] [address], [place] [phone] Kindra Saldivar MD Pre-visit Planning (Pre visit planning LVM ) 04/16/2025 Orders Only GENERIC EXTERNAL DATA DEPARTMENT Provider, Generic External Data 04/04/2025 Refill [facility] [address] [place] [address] Kindra Saldivar MD 04/04/2025 Telephone [facility] [address], [place] [phone] Knidra Saldivar MD Med Refill 03/25/2025 Orders Only [facility] [address], [place] [phone] Kindra Saldivar MD Varicose veins of both lower extremities with inflammation (Primary Dx) 03/19/2025 Telephone [facility] [address] [place], [place] [phone] Kindra Saldivar MD from Last 3 Months Immunizations Immunization Administration [...] Procedure Name Priority Date/Time Associated Diagnosis Comments VASC US LOWER EXTREMITY VENOUS DUPLEX BILATERAL Routine 05/21/2025 8:36 AM EST Varicose veins of both lower extremities with inflammation XR PELVIS 1-2 VIEWS Routine 05/21/2025 8 :25 AM EST POCT GLYCATED HEMOGLOBIN, TOTAL Routine 05/08/2025 11:22 AM EDT Type 2 diabetes mellitus without complication, without long-term current use of insulin (HCC) POCT GLUCOSE Routine 05/08/2025 11:17 AM EDT Type 2 diabetes mellitus without complication, without long-term current use of insulin (HCC) URINALYSIS, COMPLETE, WITH REFLEX TO CULTURE Routine [...] complication, without long-term current use of insulin ([facility]) Primary hypertension Hypercholesterolemia ALBUMIN, RANDOM URINE W/CREATININE Routine 07/20/2021 8:56 AM EST from Last 3 Months or Most Recently Relevant to Health Maintenance Results * Vascular US lower extremity venous duplex bilateral (05/21/2025 8:36 AM EST) 05/21/2025 8:36 AM EST Narrative [facility] - 05/21/2025 9:29 AM EST [address] [address] Ultrasound Report Signed Patient: Branden Gibson MR#: [id number] 19 : 1940 Acct:[id number] Age/Sex: 85 / M ADM Date: 05/21/25 Loc: .US Attending Dr: Kindra Saldivar MD Ordering Physician: Kindra Saldivar MD Date of Service: 05/21/25 Procedure(s): US venous duplex LE BI Accession Number(s): [id number] cc: Kindra Saldivar MD Reason for Exam: PAINFUL VARICOSE VEINS EXAMINATION: US LOWER EXTREMITY VENOUS (REFLUX EXAM), BILATERAL CLINICAL INFORMATION: Status post CABG, 2007. COMPARISON: None. TECHNIQUE: Color flow triplex imaging and compression Doppler was performed to evaluate both the deep and the superficial systems bilaterally. To evaluate the superficial system, the examination was performed in the upright position. Color-flow Doppler ultrasound and compression ultrasound were utilized. In addition, maneuvers were utilized to demonstrate reflux. FINDINGS: 1. DEEP VENOUS ULTRASOUND OF THE RIGHT LOWER EXTREMITY: Common Femoral Vein: Compressible, normal respiratory variation and augmented flow. Femoral Vein: Compressible, normal color flow and augmentation. Popliteal Vein: Compressible, normal augmentation. Deep Reflux: There is no evidence of reflux in the deep system in either the common femoral vein, superficial femoral or the popliteal vein. There is no evidence of a Dennison's cyst. 2. SUPERFICIAL ULTRASOUND WITH DOPPLER OF RIGHT LOWER EXTREMITY: GREAT SAPHENOUS VEIN: Saphenofemoral Junction: 0.5 cm; Reflux: 0 ms Proximal Thigh: 0.3 cm; Reflux: 0 ms Mid Thigh: Not present. Distal Thigh: 0.2 cm; Reflux: 0 ms At Knee: 0.3 cm; Reflux: 0 ms Proximal Calf: 0.3 cm; Reflux: 2524 ms Mid Calf: 0.2 cm; Reflux: 2756 ms Distal Calf: 0.2 cm; Reflux: 1968 ms DUPLICATED MEDIAL GREAT SAPHENOUS VEIN: Diameter: None imaged Reflux: NA DUPLICATED LATERAL GREAT SAPHENOUS VEIN: Diameter: 0.2 cm. Reflux: NA SMALL SAPHENOUS VEIN: Saphenopopliteal Junction: 0.2 cm; Reflux: 0 ms Proximal: 0.3 cm; Reflux: 0 ms Distal: 0.2 cm; Reflux: 0 ms VEIN OF GIACOMINI: Size: NA Reflux: NA PERFORATORS: Location: Proximal and mid calf Size: 0.5 and 0.1 cm respectively. Reflux: NA VARICOSITIES: Location: None imaged. Size: NA Reflux: NA 3. DEEP VENOUS ULTRASOUND OF THE LEFT LOWER EXTREMITY: Common Femoral Vein: Compressible, normal respiratory variation and augmented flow. Femoral Vein: Compressible, normal color flow and augmentation. Popliteal Vein: Compressible, normal augmentation. Deep Reflux: 1236 ms in the mid segment of the femoral vein. 1776 ms in the popliteal vein. There is no evidence of a Dennison's cyst. 4. SUPERFICIAL ULTRASOUND WITH DOPPLER OF LEFT LOWER EXTREMITY: GREAT SAPHENOUS VEIN: Saphenofemoral Junction: 0.6 cm; Reflux: 0 ms Proximal Thigh: 0.5 cm; Reflux: 0 ms Mid Thigh: Not identified. Distal Thigh: Not identified. At Knee: Not identified. Proximal Calf: Not identified. Mid Calf: Not identified. Distal Calf: Not identified. DUPLICATED MEDIAL GREAT SAPHENOUS VEIN: Diameter: None imaged Reflux: NA DUPLICATED LATERAL GREAT SAPHENOUS VEIN: Diameter: 0.3 cm. Reflux: NA SMALL SAPHENOUS VEIN: Saphenopopliteal Junction: 0.8 cm; Reflux: 2028 ms Proximal: 0.3 cm; Reflux: 2464 ms Distal: 0.2 cm; Reflux: 0 ms VEIN OF GIACOMINI: Size: NA Reflux: NA PERFORATORS: Location: None imaged Size: NA Reflux: NA VARICOSITIES: Location: None Imaged Size: NA Reflux: NA US/US venous duplex LE BI IMPRESSION: Right: Venous insufficiency, great saphenous vein from below the knee to the ankle. Perforators without reflux in the calf. Left: Venous insufficiency, small saphenous vein at the junction and midcalf. The deep venous system reflux in the mid segment of the femoral vein and popliteal vein. Electronically signed by: Ralf Miller MD 05/21/2025 09:26 AM EST Dictated By: Ralf Loaiza MD Signed By: <Electronically signed by Ralf Corado MD in OV> 05/21/25925 DD/ 5 TD/TT: 05/21/25905 Drill Runner Helper: Procedure Note Donotuseinterpreter, Image - 05/21/2025 [place] [address] Ultrasound Report Signed Patient: Herminio Gibson#: [id number] [birth year] : 1940Acct:[id number] Age/Sex: 85 / MADM Date: 05/21/25 Loc: .US Attending Dr: Kindra Saldivar MD Ordering Physician: Kindra Saldivar MD Date of Service: 05/21/25 Procedure(s): US venous duplex LE BI Accession Number(s): [id number] cc: Kindra Saldivar MD Reason for Exam: PAINFUL VARICOSE VEINS EXAMINATION: US LOWER EXTREMITY VENOUS (REFLUX EXAM), BILATERAL CLINICAL INFORMATION: Status post CABG, 2007. COMPARISON: None. TECHNIQUE: Color flow triplex imaging and compression Doppler was performed to evaluate both the deep and the superficial systems bilaterally. To evaluate the superficial system, the examination was performed in the upright position. Color-flow Doppler ultrasound and compression ultrasound were utilized. In addition, maneuvers were utilized to demonstrate reflux. FINDINGS: 1. DEEP VENOUS ULTRASOUND OF THE RIGHT LOWER EXTREMITY: Common Femoral Vein: Compressible, normal respiratory variation and augmented flow. Femoral Vein: Compressible, normal color flow and augmentation. Popliteal Vein: Compressible, normal augmentation. Deep Reflux: There is no evidence of reflux in the deep system in either the common femoral vein, superficial femoral or the popliteal vein. There is no evidence of a Dennison's cyst. 2. SUPERFICIAL ULTRASOUND WITH DOPPLER OF RIGHT LOWER EXTREMITY: GREAT SAPHENOUS VEIN: Saphenofemoral Junction: 0.5 cm; Reflux: 0 ms Proximal Thigh: 0.3 cm; Reflux: 0 ms Mid Thigh: Not present. Distal Thigh: 0.2 cm; Reflux: 0 ms At Knee: 0.3 cm; Reflux: 0 ms Proximal Calf: 0.3 cm; Reflux: 2524 ms Mid Calf: 0.2 cm; Reflux: 2756 ms Distal Calf: 0.2 cm; Reflux: 1968 ms DUPLICATED MEDIAL GREAT SAPHENOUS VEIN: Diameter: None imaged Reflux: NA DUPLICATED LATERAL GREAT SAPHENOUS VEIN: Diameter: 0.2 cm. Reflux: NA SMALL SAPHENOUS VEIN: Saphenopopliteal Junction: 0.2 cm; Reflux: 0 ms Proximal: 0.3 cm; Reflux: 0 ms Distal: 0.2 cm; Reflux: 0 ms VEIN OF GIACOMINI: Size: NA Reflux: NA PERFORATORS: Location: Proximal and mid calf Size: 0.5 and 0.1 cm respectively. Reflux: NA VARICOSITIES: Location: None imaged. Size: NA Reflux: NA 3. DEEP VENOUS ULTRASOUND OF THE LEFT LOWER EXTREMITY: Common Femoral Vein: Compressible, normal respiratory variation and augmented flow. Femoral Vein: Compressible, normal color flow and augmentation. Popliteal Vein: Compressible, normal augmentation. Deep Reflux: 1236 ms in the mid segment of the femoral vein. 1776 ms in the popliteal vein. There is no evidence of a Dennison's cyst. 4. SUPERFICIAL ULTRASOUND WITH DOPPLER OF LEFT LOWER EXTREMITY: GREAT SAPHENOUS VEIN: Saphenofemoral Junction: 0.6 cm; Reflux: 0 ms Proximal Thigh: 0.5 cm; Reflux: 0 ms Mid Thigh: Not identified. Distal Thigh: Not identified. At Knee: Not identified. Proximal Calf: Not identified. Mid Calf: Not identified. Distal Calf: Not identified. DUPLICATED MEDIAL GREAT SAPHENOUS VEIN: Diameter: None imaged Reflux: NA DUPLICATED LATERAL GREAT SAPHENOUS VEIN: Diameter: 0.3 cm. Reflux: NA SMALL SAPHENOUS VEIN: Saphenopopliteal Junction: 0.8 cm; Reflux: 2028 ms Proximal: 0.3 cm; Reflux: 2464 ms Distal: 0.2 cm; Reflux: 0 ms VEIN OF GIACOMINI: Size: NA Reflux: NA PERFORATORS: Location: None imaged Size: NA Reflux: NA VARICOSITIES: Location: None Imaged Size: NA Reflux: NA US/US venous duplex LE BI IMPRESSION: Right: Venous insufficiency, great saphenous vein from below the knee to the ankle. Perforators without reflux in the calf. Left: Venous insufficiency, small saphenous vein at the junction and midcalf. The deep venous system reflux in the mid segment of the femoral vein and popliteal vein. Electronically signed by: Ralf Miller MD 05/21/2025 09:26 AM EST RP Dictated By: Ralf Loaiza MD Signed By: <Electronically signed by Ralf Coraod MDin OV> 05/21/25925 DD/ 5 TD/TT: 05/21/25905 Drill Runner Helper: us Kindra Saldivar MD CV VASCULAR PROCEDURES Final Res ult [facility] [address] [place] [address] * XR Pelvis 1-2 Views (05/21/2025 8:25 AM EST) Anatomical Region Laterality Modality Body, Pelvis Radiographic Shelby ging 05/21/2025 8:25 AM EST Narrative 05/21/2025 4:18 PM EST [place] [address] XRay Report Signed Patient: Branden Gibson MR#: [id number] [birth year] : 1940 Acct:[id number] Age/Sex: 85 / M ADM Date: 05/21/25 Loc: HO.US Attending Dr: Kindra Saldivar MD Ordering Physician: Emi Gardner PA-C Date of Service: 05/21/25 Procedure(s): XR pelvis 1-2V Accession Number(s): [id number] cc: Emi Gardner PA-C; Kindra Saldivar MD Reason for Exam: M25.559 - Pain in unspecified hip EXAMINATION: XR PELVIS CLINICAL INFORMATION: M25.559 - Pain in unspecified hip COMPARISON: None available. TECHNIQUE: AP view of the pelvis. FINDINGS: Moderate right hip arthritis. Moderate left hip arthritis. No visible acute fracture or dislocation. Old left inferior pubic ramus fracture redemonstrated. SI joints and symphysis pubis are intact. Small sclerotic focus in the right acetabulum, unchanged from previous. Stable 1.3 cm sclerotic focus in the right supra-acetabular region. Spondylosis in the visualized lumbar spine. Vascular calcification. No suspicious soft tissue findings. XR/XR pelvis 1-2V IMPRESSION: * Moderate bilateral hip joint arthritis. * Redemonstrated old left inferior pubic ramus fracture. * Stable 1.3 cm sclerotic focus in the right supra-acetabular region. Electronically signed by: Robin Rodriguez MD 05/21/2025 04:16 PM EST Dictated By: Robin Rodriguez MD Signed By: <Electronically signed by Robin Rodriguez MD in OV> 05/21/25 1616 DD/ 0825 TD/TT: 05/21/25 0834 Drill Runner Helper: CHRISTINE Procedure Note Donotuseinterpreter, Image - 05/21/2025 [place] [address] XRay Report Signed Patient: Herminio Gibson#: [id number] [birth year] : 1940Acct:[id number] Age/Sex: 85 / MADM Date: 05/21/25 Loc: HO.US Attending Dr: Kindra Saldivar MD Ordering Physician: Emi Gardner PA-C Date of Service: 05/21/25 Procedure(s): XR pelvis 1-2V Accession Number(s): [id number] cc: Emi Gardner PA-C; Kindra Saldivar MD Reason for Exam: M25.559 - Pain in unspecified hip EXAMINATION: XR PELVIS CLINICAL INFORMATION: M25.559 - Pain in unspecified hip COMPARISON: None available. TECHNIQUE: AP view of the pelvis. FINDINGS: Moderate right hip arthritis. Moderate left hip arthritis. No visible acute fracture or dislocation. Old left inferior pubic ramus fracture redemonstrated. SI joints and symphysis pubis are intact. Small sclerotic focus in the right acetabulum, unchanged from previous. Stable 1.3 cm sclerotic focus in the right supra-acetabular region. Spondylosis in the visualized lumbar spine. Vascular calcification. No suspicious soft tissue findings. XR/XR pelvis 1-2V IMPRESSION: * Moderate bilateral hip joint arthritis. * Redemonstrated old left inferior pubic ramus fracture. * Stable 1.3 cm sclerotic focus in the right supra-acetabular region. Electronically signed by: Robin Rodriguez MD 05/21/2025 04:16 PM [facility] Dictated By: Robin Rodriguez MD Signed By: <Electronically signed by Robin Rodriguez MD in OV> 05/21/25 1616 DD/ 0825 TD/TT: 05/21/25 0834 Drill Runner Helper: CHRISTINE [facility] External Provider IMG XR PROCEDURES Final Result * (ABNORMAL) POCT Hgb A1c (05/08/2025 11:22 AM EDT) Hemoglobin A1C 8.0 4.0 - 5.7 % QC Media Lot # [id number] Lot# Expiration Date Blood 05/08/2025 11:2 2 AM EDT Kindra Saldivar MD POINT OF CARE TEST ENTER/EDIT OR DERABLES Final Result * POCT Glucose (05/08/2025 11:17 AM EDT) Glucose Blood, POC 141 60 - 200 mg/dL QC Media Lot # [id number] Lot# Expiration Date Blood Capillary blood specimen / Unknown 05/08/2025 11:17 AM EDT Kindra Saldivar MD POINT OF CARE TEST ENTER/EDIT OR DERABLES Final Result * (ABNORMAL) Urinalysis, Complete, with Reflex to Culture (04/16/2025 1:41 PM EDT) Color Urine Yellow [facility] Appearance Urine Clear [facility] PH 5.5 5.0 - 9.0 [facility] Glucose Urine UA >=1000(A) Negative mg/dL [facility] Urine Blood Negative Negative [facility] Specific [place] - Urine 1.025 1.005 - 1.025 [facility] Urine Protein Negative Neg-Trace mg/dL [facility] Urine Ketones Negative Negative mg/dL [facility] Nitrite Urine Positive(A) Negative [facility] Leukocyte Esterase Urine Negative Negative [facility] RBC Urine 0-2 0 - 2 /HPF [facility] Urine WBC 0-5 0 - 5 /HPF [facility] Urine Squamous Epithelial Cell 0-2 0 - 2 /HPF [facility] Urine Bacteria 4+ None Seen [facility] Hyaline Casts, Urine 0-2 0 - 2 /LPF [facility] 04/16/2025 1:41 PM EDT 04/16/2025 1:49 PM EDT Narrative [facility] - 04/16/2025 2:00 PM EDT Urine, Clean Catch us Generic External Data Provider LAB URINE ORDERAB LES Final Result [facility] [address] [place] [phone] * D Dimer High Sensitivity (04/16/2025 1:23 PM EDT) D Dimer High Sensitivity <150 NG/ML [facility] Comment:D-DIMER HS REFERENCE RANGENote: Our [...] ORDERAB LES Final Result Performing Organization Address [facility] de Phone Number [facility] [address] [place] [phone] * High Sensitivity Troponin I (04/16/2025 1:23 PM EDT) Pathologist [facility] TROPONIN I HIGH SENSITIVITY 14.3 <3.5 - 35.0 ng/L [facility] Comment:The Banda high sens itivity Troponin-I results should beused in conjunction with other diagnostic information suchas ECG, clinical observations and information, and patientsymptoms to aid in the diagnosis of RI. 04/16/2025 1:23 PM EDT 04/16/2025 1:28 PM EDT Generic External Data Provider LAB BLOOD ORDERAB LES Final Result Performing Organization Address [facility] de Phone Number [facility] [address] [place] [phone] * XR Chest 1 View (04/16/2025 1:19 PM EDT) Anatomical Region Laterality Modality Chest Radiographic Shelby ging 04/16/2025 1:19 PM EDT Narrative 04/16/2025 1:40 PM EDT [address] [address] XRay Report Signed Patient: Branden Gibson MR#: [id number] [birth year] : 1940 Acct:[id number] Age/Sex: 85 / M ADM Date: 04/16/25 Loc: .ED Attending Dr: Ordering Physician: Keith Vasquez DO Date of Service: 04/16/25 Procedure(s): XR chest 1V Accession Number(s): [id number] cc: Kindra Saldivar MD; Keith Vasquez DO [...] Daniel Weaver MD 04/16/2025 01:37 PM EDT RP Dictated By: Daniel Weaver MD Signed By: <Electronically signed by Daniel Weaver MD in OV> 04/16/25 1337 DD/ 1319 TD/TT: 04/16/25 1328 Drill Runner Helper: Procedure Note Donotuseinterpreter, Image - 04/16/2025 [place] [address] XRay Report Signed Patient: Herminio Gibson#: [id number] [birth year] : 1940Acct:[id number] Age/Sex: 85 / MADM Date: 04/16/25 Loc: HO.ED Attending Dr: Ordering Physician: Keith Vasquez DO Date of Service: 04/16/25 Procedure(s): XR chest 1V Accession Number(s): [id number] cc: Kindra Saldivar MD; Keith Vasquez DO [...] Daniel Weaver MD 04/16/2025 01:37 PM EDT RP Dictated By: Daniel Weaver MD Signed By: <Electronically signed by Daniel Weaver MD in OV> 04/16/25 1337 DD/ 1319 TD/TT: 04/16/25 1328 Drill Runner Helper: [facility] External Provider IMG XR PROCEDURES Final Result * Culture, Urine, Routine (04/16/2025 12:00 AM EDT) Urine Urine specimen obtained by clean catch procedure / Unknown 04/16/2025 04/16/2025 Comment:UACC Narrative [facility] - 04/17/2025 10:39 AM EDT Urine Culture Report Result Urine Culture > 100,000 cfu/ml Urine Culture Mixed bacterial denise characteristic of Urine Culture urogenital contamination. Specimen Source: Urine clean catch Generic External Data Provider LAB MICROBIOLOGY - GENERAL ORDERABLES Final Result [facility] [address] [place] [phone] * Lipid Panel, Standard (11/19/2024 9:24 AM EDT) Triglycerides 72 <150 mg/dL [facility] Comment:Desirable Triglyceri de: less than 150 mg/dLBorderline High Triglyceride 150-199 mg/dLHigh Triglyceride: 200-499 mg/dLVery High Triglyceride: greater than or equal to 5OO mg/dL Cholesterol 104 <200 mg/dL [facility] Comment:Desirable Cholestero l: less than 200 mg/dLBorderline High Cholesterol: 200-239 mg/dLHigh Cholesterol: greater than 239 mg/dL LDL Cholesterol Calculated 33 <100 mg/dL [facility] Comment:Desirable LDL: less than 100 mg/dLNear Optimal/Above Optimal LDL: 110- 129 mg/dLBorderline High LDL: 130-159 mg/dLHigh LDL: 160-189 mg/dLVery High LDL: greater than or equal to 190 mg/dL HDL Cholesterol 57 >40 mg/dL [facility] Comment:Desirable HDL: great er than 40 mg/dL Note: This HDL assay may give artificially low results in patients with liver disease. Blood Venous blood specimen / Unknown 11/19/2024 9:24 AM EDT 11/19/2024 9:24 AM EDT us Kindra Saldivar MD LAB BLOOD ORDERABLES Final Resul t Performing Organization Address [facility] Co de Phone Number [facility] [address] [place] [phone] * (ABNORMAL) ALBUMIN, RANDOM URINE W/CREATININE [...] ORDERABLES Final Resul t Performing Organization Address City/[facility]/ZIP Co de Phone Number [facility] [address] from Last 3 Months or Most Recently Relevant to Health Maintenance Insurance JOANN [id number] [facility] MEDICARE ADVANTAGE JOANN MOTA JOANN MOTA JOANN MOTA [id number] Care Teams Home Service Demonstrator Relationship Specialty Start Date End Date Steve Deluna CNP [address] [place] [address] JOANN MOTA [id number] PCP - General Family Medicine 05/07/25
== END 2025-06-03 10:12 | disposition home or self-care (01) ==
LOC: HO.HUSH 08:57
PROVIDERS: PCP Student in an Organized Health Care Education/Training Program; Visit Provider Urology
DX: N32.0 Bladder-neck obstruction (principal); N40.1 Benign prostatic hyperplasia with lower urinary tract symptoms; R33.9 Retention of urine, unspecified; Z13.9 Encounter for screening, unspecified
CPT/HCPCS: 99214

== ENCOUNTER 2025-06-03 08:56 | Outpatient (REF) | payer MEDICARE, SELFPAY | END 2025-06-03 08:57 | disposition home or self-care (01) | LOC: HO.LAB 08:56 | PROVIDERS: PCP Student in an Organized Health Care Education/Training Program; Visit Provider Urology | DX: N40.1 Benign prostatic hyperplasia with lower urinary tract symptoms (principal); R33.8 Other retention of urine; N32.0 Bladder-neck obstruction; N39.0 Urinary tract infection, site not specified; Z13.89 Encounter for screening for other disorder; Z79.899 Other long term (current) drug therapy | CPT/HCPCS: 51798; 81003; 87086; 99212 ==

== ENCOUNTER 2025-06-27 17:02 | Inpatient (IN) | payer MEDICARE, SELFPAY ==
[2025-06-27] VITALS (7 sets, daily range): BP systolic 109–184; BP diastolic 49–67; PULSE 81–103; RESP 16–20; TEMP 37.2–37.3; O2SAT 89–96; BMI 25.5
--- NOTE | ~2025-06-27 | XR_ITS ---
CLINICAL HISTORY: sob 1 view chest x-ray Comparison: CR/UT/SR - XR CHEST 1 VIEW - 04/16/25 13:19 EDT Findings: No consolidation or effusion. Normal size heart. Mild calcified atherosclerotic disease of the aortic arch. No acute fracture. Prior sternotomy. IMPRESSION: 1. Mild calcified atherosclerotic disease of the aortic arch. 2. Prior sternotomy. 3. No acute cardiopulmonary findings. This document has been electronically signed by: Mark Choi MD on 06/27/2025 18:54:38
--- NOTE | ~2025-06-27 | CT_ITS ---
CLINICAL HISTORY: Fever, cough, RLL opacity; r o pneumonia vs mass CT chest without contrast Comparison: None provided Findings: Calcified coronary atheresclerotic disease. Hiatal hernia. Hiatal hernia. Bibasilar dependent ground glass opacities. Moderate calcified atheresclerotic disease of the abdominal aorta. Left renal upper pole low attenuation lesion 2.3cm. Moderate osteopenia. Prior sternotomy. IMPRESSION: 1. Bibasilar pneumonias. Short term follow up suggested. 2. Left renal upper pole cyst measuring 2.3 cm. 3. Calcified coronary atherosclerotic disease. 4. Moderate calcified atherosclerotic disease of the abdominal aorta. 5. Hiatal hernia. 6. Moderate osteopenia. 7. Prior sternotomy. 8. No acute intrathoracic findings. This document has been electronically signed by: Mark Choi MD on 06/27/2025 22:12:26
--- NOTE | 2025-06-27 17:23 | ECG_ITS ---
Test Reason : chest pain sob Blood Pressure : */* mmHG Vent. Rate : 108 BPM Atrial Rate : 108 BPM P-R Int : 184 ms QRS Dur : 104 ms QT Int : 354 ms P-R-T Axes : * -43 90 degrees QTcB Int : 474 ms Sinus tachycardia with Premature atrial complexes Left axis deviation Minimal voltage criteria for LVH, may be normal variant ( Jesus product ) Nonspecific ST abnormality Abnormal ECG When compared with ECG of 16-Apr-2025 12:05, Premature atrial complexes are now Present AR interval has decreased Referred By: Adrianna Encarnacion Electronically Signed By: Erasmo Moeller
--- OUTSIDE RECORDS SUMMARY | 2025-06-27 17:32 | XMS_ITS | Encounter Summary ---
Author Organization [employer] Address [address] [facility] 7t [place] [address] Care Team Providers Care Sas Programmer Analyst Name Role Phone Kindra Saldivar MD Primary Care Provider [phone] Steve Deluna CNP Primary Care Provider [phone] Reason for Visit * Reason Comments Med Refill Encounter Details Date Type Department Care Team ([facility] Contact Info) Description 11/04/2022 Refill [facility] CH[facility] MED & PEDS 505 [place], [place] [phone] Kindra Saldivar MD 505 [place], [place] [phone] Eczema, unspecified type Social History Tobacco Use [...] type documented in this encounter Care Teams Sas Programmer Analyst Relationship Specialty Start Date End Date Kindra Saldivar MD [address] [place] [phone] PCP - General Family Medicine 06/22/12 05/06/25 Steve Deluna CNP [address] [place] [address] PCP - General Family Medicine 05/07/25 documented as of this encounter
--- OUTSIDE RECORDS SUMMARY | 2025-06-27 17:32 | XMS_ITS | Encounter Summary ---
Author Organization [employer] Address [address] [place] [address] 7t [place] [address] Care Team Providers Care Cornice Maker Name Role Phone Kindra Saldivar MD Primary Care Provider [phone] Steve Deluna CNP Primary Care Provider [phone] Reason for Visit * Reason Comments Med Refill Encounter Details Date Type Department Care Team ([facility] Contact Info) Description 05/03/2023 Refill [facility] CHC MED & PEDS 505 [place], [place] [phone] Kindra Saldivar MD 505 [place], [place] [phone] Social History Tobacco Use Types Packs/Day Years [...] on filedocumented in this encounter Care Teams Cornice Maker Relationship Specialty Start Date End Date Kindra Saldivar MD [address] [place] [address] PCP - General Family Medicine 06/22/12 05/06/25 Steve Deluna CNP 505 [place] [address] PCP - General Family Medicine 05/07/25 documented as of this encounter
--- OUTSIDE RECORDS SUMMARY | 2025-06-27 17:32 | XMS_ITS | Clinical Summary ---
Author Organization [employer] Address [address] [facility] 7t [place] [address] Care Team Providers Care Pairer Substandard Name Role Phone Steve Deluna TESHA Primary Care Provider [phone] Allergies No known active allergies Medications cetirizine [...] 4 Active Blood Glucose Monitoring Suppl (FreeStyle [place] Lite) w/Device kit Use to test blood [...] ONE TABLET EVERY MORNING 90 tablet 3 06/20/2025 12:29 PM EST 5 Active metFORMIN (Glucophage) 1000 MG tablet TAKE 1 TABLET BY MOUTH TWICE A DAY WITH BREAKFAST AND EVENING MEALS. 180 tablet 3 5 Active cilostazol (Pletal) 50 MG tabletIndications :Atherosclerosis of coronary artery, unspecified vessel or lesion type, unspecified whether angina present, unspecified whether burns paiute or transplanted heart Take 1 tablet (50 mg) by mouth 2 times daily. 60 tablet 9 5 Active empagliflozin (Jardiance) 10 MG Take 1 tablet (10 mg) by mouth Once per day. 90 tablet 3 06/09/2025 2:29 PM EST 5 12/11/19 26 Active rosuvastatin (Crestor) 40 [...] complication, without long-term current use of insulin ([facility]) Check sugars BID 100 each 3 5 03/03/20 Active Accu-Chek Softclix Lancets lancetsIndication s:Type 2 diabetes mellitus without complication, without long-term current use of insulin ([facility]) Use as instructed 100 each 12 5 03/03/20 Active telmisartan (MIcarDIS) 40 MG tablet TAKE ONE TABLET DAILY 90 tablet 3 Active Active Problems Problem Noted Date Diagnosed Date Venous insufficiency 06/16/2025 Atherosclerosis of coronary artery 08/27/2013 Diabetes mellitus type 2, uncomplicated 08/27/19 14 Eczema 08/27/2013 Hypercholesterolemia 08/27/2013 Hypertension 08/27/2013 Resolved Problems Problem Noted Date Diagnosed Date Resolved Date Diabetes due to underlying c ondition w oth circulatory comp 05/23/2024 11/05/2024 Encounters Date Type Department Care Team Description 06/03/2025 Orders Only GENERIC EXTERNAL DATA DEPARTMENT Provider, Generic External Data 05/21/2025 Orders Only [facility] External Provider, [facility] 05/19/2025 Telephone [facility] [address] [place] [address] Steve Deluna CNP 05/08/2025 11:00 AM EDT Office Visit [facility] [address] [place] [address] Kindra Saldivar MD Type 2 diabetes mellitus without complication, without long-term current use of insulin ([facility]) (Primary Dx); Primary hypertension; Hypercholesterolemi a 05/08/2025 Travel 05/05/2025 Telephone [facility] [address] [place] [address] Kindra Saldivar MD Transition Of Care (Tcm) 05/03/2025 Telephone [facility] [address] [place] [address] [phone] Kindra Saldivar MD Chart Prep 04/25/2025 Patient Outreach [facility] [address] [facility], [place] [address] Kindra Saldivar MD Pre-visit Planning (Pre visit planning LVM ) 04/16/2025 Orders Only GENERIC EXTERNAL DATA DEPARTMENT Provider, Generic External Data 04/04/2025 Refill [facility] [address] [place] [address] Kindra Saldivar MD 04/04/2025 Telephone [facility] [address] [place] [address] Kindra Saldivar MD Med Refill from Last 3 Months Immunizations Immunization Administration [...] 11/05/2025 11/05/2024, 11/06/19 SDOH Screening 11/05/2025 11/05/2024 Lipid Panel 11/19/2025 [...] on patient's age to complete this topic Goals Goal Patient Goal Type Associated Problems Recent Progress Patient-Stated? Author Help patients manage their type 2 diabetes Care Plan Help patients manage their type 2 diabetes No Steve Deluna CNP Weekly blood pressure task Care Plan Weekly blood pressure task No Steve Deluna CNP Help patients manage their type 2 diabetes Care Plan Help patients manage their type 2 diabetes Steve Fernandez CNP Patient has chronic kidney disease Care Plan Patient has chronic kidney disease No Steve Deluna CNP Procedures Procedure Name Priority Date/Time Associated Diagnosis Comments CULTURE, URINE, ROUTINE Routine 06/03/2025 8:56 AM EST VASC US LOWER EXTREMITY VENOUS DUPLEX BILATERAL [...] complication, without long-term current use of insulin ([facility]) Primary hypertension Hypercholesterolemia ALBUMIN, RANDOM URINE W/CREATININE Routine 07/20/2021 8:56 AM EST from Last 3 Months or Most Recently Relevant to Health Maintenance Results * Culture, Urine, Routine (06/03/2025 8:56 AM EST) Only the most recent of2 resultswithin the time period is included. Urine Urine specimen obtained by clean catch procedure / Unknown 06/03/2025 8:56 AM EST 06/03/2025 5:33 PM EST Comment:[facility] - 06/05/2025 12:34 PM EST Urine Culture Report Result Urine Culture > 100,000 cfu/ml Urine Culture Mixed bacterial denise characteristic of Urine Culture urogenital contamination. Specimen Source: Urine clean catch us Generic External Data Provider LAB MICROBIOLOGY - GENERAL ORDERABLES Final Result Performing Organization Address City/State/[facility] Co de Phone Number [facility] [address] [place] [phone] * Vascular US lower extremity venous duplex bilateral (05/21/2025 8:36 AM EST) 05/21/2025 8:36 AM EST [facility] IMAG[facility] - 05/21/2025 9:29 AM EST [address] [address] Ultrasound Report Signed Patient: Branden Gibson MR#: [id number] [birth year] : 1940 Acct:[id number] Age/Sex: 85 / M ADM Date: 05/21/25 Loc: HO.US Attending Dr: Kindra Saldivar MD Ordering Physician: Kindra Saldivar MD Date of Service: 05/21/25 Procedure(s): US venous duplex LE BI Accession Number(s): [id number] cc: Kindra Saldivar MD Reason for Exam: [...] by: Ralf [place] MD 05/21/2025 09:26 AM [facility] Dictated By: Ralf Loaiza MD Signed By: <Electronically signed by Ralf Corado MD in OV> 05/21/25925 DD/ TD/TT: 05/21/25 0906 Database Developer: Procedure Note Donotuseinterpreter, Image - 05/21/[address] [address] Ultrasound Report Signed Patient: Herminio Gibson#: [id number] [birth year] : 1940Acct:[id number] Age/Sex: 85 / MADM Date: 05/21/25 Loc: HO.US Attending Dr: Kindra Saldivar MD Ordering Physician: Kindra Saldivar MD Date of Service: 05/21/25 Procedure(s): US venous duplex LE BI Accession Number(s): [id number] cc: Kindra Saldivar MD Reason for Exam: [...] Signed By: <Electronically signed by Ralf Corado MDin OV> 05/21/25925 DD/ 5 TD/TT: 05/21/25905 Database Developer: us Kindra Saldivar MD CV VASCULAR PROCEDURES Final Res ult [facility] [address] [place] [address] * XR Pelvis 1-2 Views (05/21/2025 8:25 AM EST) Anatomical Region Laterality Modality Body, Pelvis Radiographic Shelby ging 05/21/2025 8:25 AM EST Narrative 05/21/2025 4:18 PM EST [address] [address] XRay Report Signed Patient: Branden Gibson MR#: [id number] [birth year] : 1940 Acct:[id number] Age/Sex: 85 / M ADM Date: 05/21/25 Loc: HO.US Attending Dr: Kindra Saldivar MD Ordering Physician: Emi Gardner PA-C Date of Service: 05/21/25 Procedure(s): XR pelvis 1-2V Accession Number(s): [id number] cc: Emi Gardner PA-C; Kindra Saldivar MD [...] Rodriguez MD in OV> 05/21/25 1616 DD/ TD/TT: 05/21/25 0834 Database Developer: HB Procedure Note Donotuseinterpreter, Image - 05/21/[address] [place] [address] XRay Report Signed Patient: Herminio Gibson#: [id number] [birth year] : 1940Acct:[id number] Age/Sex: 85 / MADM Date: 05/21/25 Loc: . Attending Dr: Kindra Saldivar MD Ordering Physician: Emi Gardner PA-C Date of Service: 05/21/25 Procedure(s): XR pelvis 1-2V Accession Number(s): [id number] cc: Emi Gardner PA-C; Kindra Saldivar MD [...] by: Robin Rodriguez MD 05/21/2025 04:16 PM [facility] Dictated By: Robin Rodriguez MD Signed By: <Electronically signed by Robin Rodriguez MD in OV> 05/21/25 1616 DD/ 4 TD/TT: 05/21/25 0834 Database Developer: CHRISTINE [facility] External Provider IMG XR PROCEDURES Final Result * (ABNORMAL) POCT Hgb A1c (05/08/2025 11:22 AM EDT) Hemoglobin A1C 8.0 4.0 - 5.7 % QC Media Lot # [id number] Lot# Expiration Date Blood 05/08/2025 11:2 2 AM EDT us [...] (04/16/2025 1:41 PM EDT) Color Urine Yellow [facility] Appearance Urine Clear [facility] PH 5.5 5.0 - 9.0 [facility] Glucose Urine UA >=1000(A) Negative mg/dL [facility] Urine Blood Negative Negative [facility] Specific Zirconia - Urine 1.025 1.005 - 1.025 [facility] Urine Protein Negative Neg-Trace mg/dL [facility] Urine Ketones Negative Negative mg/dL [facility] Nitrite Urine Positive(A) Negative [facility] Leukocyte Esterase Urine Negative Negative [facility] RBC Urine 0-2 0 - 2 /HPF [facility] Urine WBC 0-5 0 - 5 /HPF [facility] Urine Squamous Epithelial Cell 0-2 0 - 2 /HPF [facility] Urine Bacteria 4+ None Seen [facility] Hyaline Casts, Urine 0-2 0 - 2 /LPF [facility] 04/16/2025 1:41 PM EDT 04/16/2025 1:49 PM EDT Narrative [facility] - 04/16/2025 2:00 PM EDT Urine, Clean Catch Generic External Data Provider LAB URINE ORDERAB LES Final Result Performing Organization Address [facility] de Phone Number [facility] [address] [place] [phone] * D Dimer High Sensitivity (04/16/2025 1:23 PM EDT) Pathologist [facility] D Dimer High Sensitivity <150 NG/ML [facility] Comment:D-DIMER HS REFERENCE RANGENote: Our assay [...] ORDERAB LES Final Result Performing Organization Address [facility] de Phone Number [facility] [address] [place] [phone] * High Sensitivity Troponin I (04/16/2025 1:23 PM EDT) Pathologist [facility] TROPONIN I HIGH SENSITIVITY 14.3 <3.5 - 35.0 ng/L [facility] Comment:The Banda high sens itivity Troponin-I results should beused in conjunction with other diagnostic information suchas ECG, clinical observations and information, and patientsymptoms to aid in the diagnosis of NV. 04/16/2025 1:23 PM EDT 04/16/2025 1:28 PM EDT Generic External Data Provider LAB BLOOD ORDERAB LES Final Result Performing Organization Address [facility]/ZIP Co de Phone Number [facility] [address] [place] [phone] * XR Chest 1 View (04/16/2025 1:19 PM EDT) Anatomical Region Laterality Modality Chest Radiographic Shelby ging 04/16/2025 1:19 PM EDT Narrative 04/16/2025 1:40 PM EDT [address] [address] XRay Report Signed Patient: Branden Gibson MR#: [id number] [birth year] : 1940 Acct:[id number] Age/Sex: 85 / M ADM Date: 04/16/25 Loc: HO.ED Attending Dr: Ordering Physician: Keith Vasquez DO Date of Service: 04/16/25 Procedure(s): XR chest 1V Accession Number(s): [id number] cc: Kindra Saldivar MD; Keith Vasquez DO [...] 04/16/25 1337 DD/ 1319 TD/TT: 04/16/25 1328 Database Developer: Procedure Note Donotuseinterpreter, Image - 04/16/2025 [place] [place] [address] XRay Report Signed Patient: Herminio Gibson#: [id number] [birth year] : 1940Acct:[id number] Age/Sex: 85 / MADM Date: 04/16/25 Loc: HO.ED Attending Dr: Ordering Physician: Keith Vasquez DO Date of Service: 04/16/25 Procedure(s): XR chest 1V Accession Number(s): [id number] cc: Kindra Saldivar MD; Keith Vasquez DO [...] 04/16/25 1337 DD/ 1319 TD/TT: 04/16/25 1328 Database Developer: [facility] External Provider IMG XR PROCEDURES Final Result * Lipid Panel, Standard (11/19/2024 9:24 AM EDT) Triglycerides 72 <150 mg/dL [facility] Comment:Desirable Triglyceri de: less than 150 mg/dLBorderline High Triglyceride 150-199 mg/dLHigh Triglyceride: 200-499 mg/dLVery High Triglyceride: greater than or equal to 5OO mg/dL Cholesterol 104 <200 mg/dL [facility] Comment:Desirable Cholestero l: less than 200 mg/dLBorderline High Cholesterol: 200-239 mg/dLHigh Cholesterol: greater than 239 mg/dL LDL Cholesterol Calculated 33 <100 mg/dL [facility] Comment:Desirable LDL: less than 100 mg/dLNear Optimal/Above Optimal LDL: 110- 129 mg/dLBorderline High LDL: 130-159 mg/dLHigh LDL: 160-189 mg/dLVery High LDL: greater than or equal to 190 mg/dL HDL Cholesterol 57 >40 mg/dL [facility] Comment:Desirable HDL: great er than 40 mg/dL Note: This HDL assay may give artificially low results in patients with liver disease. Blood Venous blood specimen / Unknown 11/19/2024 9:24 AM EDT 11/19/2024 9:24 AM EDT us Kindra Saldivar MD LAB BLOOD ORDERABLES Final Resul t Performing Organization Address [facility] Co de Phone Number [facility] [address] [place] [phone] * (ABNORMAL) ALBUMIN, RANDOM URINE W/CREATININE [...] ORDERABLES Final Resul t Performing Organization Address City/[facility]/ZIP Co de Phone Number [facility] [address] [place] [address], [place] from Last 3 Months or Most Recently Relevant to Health Maintenance Additional Health Concerns Active Problems Noted Date Diagnosed Date Help patients manage their type 2 diabetes 06/16 Weekly blood pressure task 06/16/2025 Help patients manage their type 2 diabetes 06/16 Patient has chronic kidney disease 06/16/2025 [place] [id number] [facility] [id number] [place] [id number] Care Teams Pairer Substandard Relationship Specialty Start Date End Date Steve Deluna CNP [address] [facility] [place] [address] PCP - General Family Medicine 05/07/25
--- OUTSIDE RECORDS SUMMARY | 2025-06-27 17:32 | XMS_ITS | Encounter Summary ---
Author Organization [employer] Address [address] [facility] 7t [place] [address] Care Team Providers Care Bush And Vine Fruit Crop Farmer Name Role Phone Kindra Saldivar MD Primary Care Provider [phone] Steve Deluna CNP Primary Care Provider [phone] Reason for Visit * Reason Comments Med Refill Encounter Details Date Type Department Care Team ([facility] st Contact Info) Description 12/31/2023 Refill [facility] CHC MED & PEDS [address] [place], [place] [phone] Jermain Monsalve MD 505 [place] [address] Eczema, unspecified type Social History Tobacco Use [...] documented as of this encounter Care Teams Bush And Vine Fruit Crop Farmer Relationship Specialty Start Date End Date Kindra Saldivar MD [address] [place] [address] PCP - General Family Medicine 06/22/12 05/06/25 Steve Deluna CNP [address] [place] [address] PCP - General Family Medicine 05/07/25 documented as of this encounter
--- OUTSIDE RECORDS SUMMARY | 2025-06-27 17:32 | XMS_ITS | Encounter Summary ---
Author Organization [employer] Address [address] [facility] 7t [place] [address] Care Team Providers Care Eyeglass Maker Name Role Phone Kindra Saldivar MD Primary Care Provider [phone] Steve Deluna CNP Primary Care Provider [phone] Reason for Visit * Reason Comments Med Refill Encounter Details Date Type Department Care Team ([facility] Contact Info) Description 05/23/2024 Refill [facility] CHC MED & PEDS 505 [place], [place] [phone] Kindra Saldivar MD 505 [place], [place] [phone] Social History Tobacco Use Types Packs/Day Years [...] documented as of this encounter Care Teams Eyeglass Maker Relationship Specialty Start Date End Date Kindra Saldivar MD [address] [place] [address] PCP - General Family Medicine 06/22/12 05/06/25 Steve Deluna CNP 505 [place] [address] PCP - General Family Medicine 05/07/25 documented as of this encounter
--- OUTSIDE RECORDS SUMMARY | 2025-06-27 17:32 | XMS_ITS | Encounter Summary ---
Author Organization [employer] Address [address] [facility] 7t [place] [address] Care Team Providers Care Beveling And Edging Machine Operator Name Role Phone Kindra Saldivar MD Primary Care Provider [phone] Steve Deluna CNP Primary Care Provider [phone] Reason for Visit * Reason Comments Med Refill Encounter Details Date Type Department Care Team ([facility] Contact Info) Description 11/04/2024 Refill [facility] CHC MED & PEDS [address] [place], [place] [phone] Kindra Saldivar MD 505 [place] [address] Atherosclerosis of coronary artery, unspecified vessel or lesion type, unspecified whether angina present, unspecified whether [place] or transplanted heart Social History Tobacco Use [...] type, unspecified whether angina present, unspecified whether [place] or transplanted heart documented in this encounter Additional Health Concerns Assessment Noted Time PHQ-9 Depression Total Score: 0 06/13/20 23 11:29 AM EST documented as of this encounter Care Teams Beveling And Edging Machine Operator Relationship Specialty Start Date End Date Kindra Saldivar MD [address] [place] [phone] PCP - General Family Medicine 06/22/12 05/06/25 Steve Deluna CNP 505 [place] [address] PCP - General Family Medicine 05/07/25 documented as of this encounter
--- OUTSIDE RECORDS SUMMARY | 2025-06-27 17:32 | XMS_ITS | Encounter Summary ---
Author Organization [employer] Address [address] [facility] 7t [place] [address] Care Team Providers Care Managing Broker Name Role Phone Kindra Saldivar MD Primary Care Provider [phone] Steve Deluna CNP Primary Care Provider [phone] Encounter Details Date Type Department Care Team ([facility] st Contact Info) Description 06/13/2022 Abstract [facility] MED & PEDS [address] [place], [place] [phone] Provider, MD Jose Social History Tobacco Use [...] on filedocumented in this encounter Care Teams Managing Broker Relationship Specialty Start Date End Date Kindra Saldivar MD [address] [place] [address] PCP - General Family Medicine 06/22/12 05/06/25 Steve Deluna CNP 505 [place] [address] PCP - General Family Medicine 05/07/25 documented as of this encounter
--- OUTSIDE RECORDS SUMMARY | 2025-06-27 17:32 | XMS_ITS | Encounter Summary ---
Author Organization [employer] Address [address] [facility] 7t [place] [address] Care Team Providers Care Vmware Administrator Name Role Phone Kindra Saldivar MD Primary Care Provider [phone] Steve Deluna CNP Primary Care Provider [phone] Reason for Visit * Reason Comments Med Refill Encounter Details Date Type Department Care Team ([facility] Contact Info) Description 12/10/2024 Refill [facility] CHC MED & PEDS 505 [place], [place] [phone] Kindra Saldivar MD 505 [place], [place] [phone] Social History Tobacco Use Types Packs/Day Years [...] documented as of this encounter Care Teams Vmware Administrator Relationship Specialty Start Date End Date Kindra Saldivar MD [address] [place] [address] PCP - General Family Medicine 06/22/12 05/06/25 Steve Deluna CNP [address] [place] [address] PCP - General Family Medicine 05/07/25 documented as of this encounter
--- OUTSIDE RECORDS SUMMARY | 2025-06-27 17:32 | XMS_ITS | Encounter Summary ---
Author Organization [employer] Address 75 [facility] 7t [place] [address] Care Team Providers Care House Calls Nurse Practitioner Name Role Phone Kindra Saldivar MD Primary Care Provider [phone] Steve Deluna CNP Primary Care Provider [phone] Reason for Visit * Reason Comments Med Refill Encounter Details Date Type Department Care Team ([facility] Contact Info) Description 10/30/2023 Refill [facility] CHC MED & PEDS 505 [place], [place] [phone] Kindra Saldivar MD 505 [place], [place] [phone] Type 2 diabetes mellitus without complications (CMS/HCC) [...] documented as of this encounter Care Teams House Calls Nurse Practitioner Relationship Specialty Start Date End Date Kindra Saldivar MD [address] [place] [phone] PCP - General Family Medicine 06/22/12 05/06/25 Steve Deluna CNP [address] [place] [address] PCP - General Family Medicine 05/07/25 documented as of this encounter
--- NOTE | 2025-06-27 17:34 | ED.GENADULT ---
HPI - General Adult General Chief complaint: General Medical Stated complaint: fever, cough History of Present Illness HPI narrative: Patient is an 85-year-old male with a history of coronary artery disease status post bypass presents today with coughing upper respiratory symptoms that is been ongoing for the last few days. Unsure when it started but seems to be worse the last 3 days. Increasing fatigue. Cough with a wet component. Noticed to have an low oxygenation patient's noted fever at home no specific temperature. No diaphoresis. Positive history of hypertension hypercholesterolemia. No leg swelling. Related Data Home Medications ?Medication ?Instructions ?Recorded ?Confirmed aspirin 81 mg chewable tablet 1 tab PO DAILY 03/23/21 06/27/25 cilostazol 50 mg tablet 50 mg PO 03/23/21 04/01/25 hydrochlorothiazide 25 mg tablet 25 mg PO DAILY 03/23/21 04/01/25 ibuprofen 400 mg tablet 0 mg PO 03/23/21 04/01/25 metformin 1,000 mg tablet 1,000 mg PO BID 03/23/21 04/01/25 blood sugar diagnostic (FreeStyle #10 ea 03/30/21 12/05/23 Lite Strips) lancets 33 gauge (TRUEplus Lancets) #100 ea 03/30/21 12/05/23 lidocaine 5 % topical ointment topical 03/30/21 04/01/25 clotrimazole-betamethasone 1 appl topical 05/04/21 04/01/25 %-0.05 % topical cream clobetasol 0.05 % topical cream g topical BID 06/15/21 04/01/25 glipizide 10 mg tablet 10 mg PO 08/23/22 04/01/25 brimonidine 0.2 % eye drops 1 drp ophthalmic (eye) 04/01/25 04/01/25 empagliflozin 10 mg tablet 10 mg PO DAILY 04/01/25 04/01/25 (Jardiance) Previous Rx's ?Medication ?Instructions ?Recorded blood pressure monitor (Blood #1 ea 03/24/22 Pressure Kit) rosuvastatin 40 mg tablet 40 mg PO BEDTIME #90 tabs 03/24/22 bethanechol chloride 50 mg tablet 50 mg PO BID 90 days #180 tabs 06/03/25 tamsulosin 0.4 mg capsule 0.8 mg (2 x 0.4 mg) PO BEDTIME 90 06/03/25 days #180 caps nitroglycerin 0.4 mg sublingual 0.4 mg sublingual Q5M #25 tabs 06/16/25 tablet Allergies Allergy/AdvReac Type Severity Reaction Status Date / Time No Known Allergies (No Known Allergy Verified 06/27/25 17:14 Allergies*) Review of Systems Review of Systems: Positive shortness of breath coughing Yes all other systems are reviewed and are negative [facility] Past Medical History Attestation statement: The following information was validated with the patient. Medical History Diabetes mellitus Hyperlipidemia HTN (hypertension) PVD (peripheral vascular disease) CAD (coronary artery disease) Surgical History History of gastric surgery Hx of CABG Family History Family History Father No problems noted. Mother No problems noted. Sister Cancer Social History Social History Patient Tobacco Use Status: Never used Tobacco Smoked in Last 30 Days: No Use of substances other than those prescribed or required for medical reasons: No Advance Directives: No Advance Directives Information Provided: No Do you have a plan to hurt others: No Plan Physical Exam ED Exam Exam: Appearance: Alert. Oriented X3. No acute distress. Eyes: Pupils equal, round and reactive to light. ENT: Pharynx normal. Neck: Normal inspection. Neck supple. No lymph nodes noted. No crepitus CVS: Normal heart rate and rhythm. Pulses normal. Normal S1 and S2 Respiratory: No respiratory distress. Breath sounds normal. No Wheezing. No rales Abdomen: Soft and nontender. No rigidity. No distention. good BS x4 Skin: Skin warm and dry. Normal skin color. Normal skin turgor. Extremities: No lower extremity edema. Neurovascular intact to all extremities. No Lacerations. No Rash Neuro: Oriented X 3. No motor deficit. No sensory deficit. Moving all extermities. No slurred speech Vital Signs: Vital Signs - 24 hr 06/27/25 17:12 06/27/25 17:18 06/27/25 17:21 Temperature 99.1 F Pulse Rate 103 H 103 H Respiratory Rate 20 20 Blood Pressure 146/64 H 146/64 H Pulse Oximetry 92 92 Oxygen Delivery Method Room Air Room Air Oxygen Flow Rate 06/27/25 17:49 06/27/25 19:45 06/27/25 20:33 Temperature 98.9 F Pulse Rate 100 87 Respiratory Rate 16 17 Blood Pressure 112/49 L Pulse Oximetry 92 89 L Oxygen Delivery Method Nasal Cannula Room Air Oxygen Flow Rate 2 BMI result Body Mass Index 25.5 Medications Administered Discontinued Medications Generic Name Dose Route Start Last Admin Trade Name Freq PRN Reason Stop Dose Admin Azithromycin 500 mg 06/27/25 17:35 06/27/25 18:04 Azithromycin 500 Mg Tablet PO 06/27/25 17:36 500 mg ONCE ONE Administration Sodium Chloride 1,000 mls @ 999 mls/hr 06/27/25 17:45 06/27/25 19:45 Ns IV 06/27/25 18:45 Infused .Q1H1M STACEY Infusion Magnesium Sulfate 2 gm in 50 mls @ 150 mls/hr 06/27/25 17:35 06/27/25 18:24 Magnesium Sulfate/H2o IV 06/27/25 17:54 Infused ONCE ONE Infusion Ceftriaxone Sodium 1 gm/ 50 mls @ 100 mls/hr 06/27/25 17:35 06/27/25 18:24 Sodium Chloride IV 06/27/25 18:04 Infused ONCE ONE Infusion Sodium Chloride 1,000 mls @ 999 mls/hr 06/27/25 18:15 06/27/25 19:45 Ns IV 06/27/25 19:15 Infused .Q1H1M STACEY Infusion Levalbuterol HCl 1.25 mg 06/27/25 17:44 06/27/25 17:47 Levalbuterol Hcl 1.25 Mg/3 Ml Vial.Neb INHALE 06/27/25 17:45 1.25 mg ONCE ONE Administration Methylprednisolone Sodium Succinate 60 mg 06/27/25 17:34 06/27/25 18:04 Methylprednisolone Sod Succ 125 Mg/2 Ml Vial IVPUSH 06/27/25 17:35 60 mg ONCE ONE Administration Medical Decision Making Medical Decision Making MDM Narrative: Patient given steroid neb treatments. Cultures obtained. Antibiotic was started for possible pneumonia. Chest x-ray by my interpretation showed no gross infiltrate I reviewed radiology's reading. Flu COVID RSV was actually negative. Can not exclude the possibility other viruses. Patient O2 sats still remained in around 90% after neb treatment. Still feeling short of breath. Will require admission for further evaluation hospitalist team was consulted agree with plan. The initial lactate was elevated given boluses of fluids. Repeat lactate is the same. Repeat focal exam for sepsis was done patient essentially look the same. Question of the lactate is secondary to albuterol use. Currently in stable condition awaiting admission. Differential Diagnosis Differential Diagnoses: The differential diagnosis associated with the presentation includes Asthma COPD, pneumonia, flu, COVID, RSV Admission/Observation Consideration of admission/observation: Escalation of care including admission/observation considered Consult Healthcare Provider Management of the patient was discussed with: Hospitalist Lab Data MDM Lab Attestation statement: I reviewed the patient's lab results. 06/27/25 17:33 06/27/25 17:33 Labs: Lab Results 06/27/25 06/27/25 06/27/25 Range/Units 17:33 17:41 17:48 WBC 2.5 L (4.8-10.8) X10*3/uL RBC 4.66 (4.60-5.80) X10*6/uL Hgb 14.6 (14.0-18.0) g/dl Hct 43.0 (42.0-52.0) % MCV 92.3 (80.0-98.0) fL MCH 31.3 (27.0-33.0) pg MCHC 34.0 (31.0-36.0) g/dl RDW 15.9 (11.0-16.0) % Plt Count 157 L (160-400) X10*3/uL MPV 10.0 (9.4-12.4) fL Immature Gran % (Auto) Cancelled Neut % (Auto) Cancelled Lymph % (Auto) Cancelled [place] % (Auto) Cancelled Eos % (Auto) Cancelled Baso % (Auto) Cancelled Lymph # (Auto) Cancelled [place] # (Auto) Cancelled Eos # (Auto) Cancelled Baso # (Auto) Cancelled Abs Immat Gran (auto) Cancelled Absolute Neuts (auto) Cancelled Absolute Nucleated RBC 0.000 (0.0-0.012) X10*3/uL Nucleated RBC % (auto) 0.0 (0.0-0.2) /100WBC Neutrophils % (Manual) 32 L (45-73) % Band Neutrophils % 1 L (3-5) % Lymphocytes % (Manual) 59 H (20-40) % Atypical Lymphs % (Man) 1 (0-6) % Monocytes % (Manual) 4 (2-11) % Eosinophils % (Manual) 2 (0-4) % Metamyelocytes % 1 % Abs Neuts (Manual) 0.8 L (2.0-8.3) X10*3/uL Lymphocytes # (Manual) 1.5 (1.2-4.9) X10*3/uL Monocytes # (Manual) 0.1 (0.1-1.2) X10*3/uL Eosinophils # (Manual) 0.1 (0.0-0.4) X10*3/uL Platelet Estimate NORMAL (NORMAL) Plt Morphology Comment NORMAL RBC Morphology NOTED Ovalocytes 1+ (5-14) /OIF [place] Cells 1+ (0-2) /OIF VBG pH 7.44 H (7.32-7.43) VBG pCO2 36 mmHg VBG pO2 46 mmHg VBG HCO3 25 (22-26) mmol/L VBG O2 Saturation 70.0 % VBG Base Excess 1.4 mmol/L Sodium 143 (135-145) mmol/L Potassium 3.3 (3.3-5.1) mmol/L Chloride 106 (96-108) mmol/L Carbon Dioxide 24 (22-29) mmol/L Anion Gap 16 (12-20) BUN 16 (9-16) mg/dL Creatinine 0.89 (0.5-1.4) mg/dL Estim Creat Clear Calc 56.7 Estimated GFR > 60 Random Glucose 263 H (60-115) mg/dL Lactic Acid 2.8 H* (0.5-2.0) mmol/L Lactic Acid F/U @ 2Hr (0.5-2.0) mmol/L Calcium 11.2 H D (8.4-10.2) mg/dL Magnesium 1.9 (1.6-2.6) mg/dL Total Bilirubin 1.9 H (0.0-1.0) mg/dL AST 35 (5-37) U/L ALT 37 (0-40) U/L Alkaline Phosphatase 117 (39-117) U/L Troponin I High Sens 18.5 (<3.5-35.0) ng/L NT-Pro-B Natriuret Pep 738.5 H (<300) pg/mL Total Protein 7.8 (6.5-8.0) g/dL Albumin 4.4 (3.5-5.0) g/dL Influenza Type A (PCR) NEGATIVE (Negative) Influenza Type B (PCR) NEGATIVE (Negative) RSV RNA Qual (PCR) NEGATIVE (Negative) SARS-CoV-2 RNA (RT-PCR) NEGATIVE (Negative) 06/27/25 Range/Units 20:21 WBC (4.8-10.8) X10*3/uL RBC (4.60-5.80) X10*6/uL Hgb (14.0-18.0) g/dl Hct (42.0-52.0) % MCV (80.0-98.0) fL MCH (27.0-33.0) pg MCHC (31.0-36.0) g/dl RDW (11.0-16.0) % Plt Count (160-400) X10*3/uL MPV (9.4-12.4) fL Immature Gran % (Auto) Neut % (Auto) Lymph % (Auto) [place] % (Auto) Eos % (Auto) Baso % (Auto) Lymph # (Auto) [place] # (Auto) Eos # (Auto) Baso # (Auto) Abs Immat Gran (auto) Absolute Neuts (auto) Absolute Nucleated RBC (0.0-0.012) X10*3/uL Nucleated RBC % (auto) (0.0-0.2) /100WBC Neutrophils % (Manual) (45-73) % Band Neutrophils % (3-5) % Lymphocytes % (Manual) (20-40) % Atypical Lymphs % (Man) (0-6) % Monocytes % (Manual) (2-11) % Eosinophils % (Manual) (0-4) % Metamyelocytes % % Abs Neuts (Manual) (2.0-8.3) X10*3/uL Lymphocytes # (Manual) (1.2-4.9) X10*3/uL Monocytes # (Manual) (0.1-1.2) X10*3/uL Eosinophils # (Manual) (0.0-0.4) X10*3/uL Platelet Estimate (NORMAL) Plt Morphology Comment RBC Morphology Ovalocytes /OIF [place] Cells /OIF VBG pH (7.32-7.43) VBG pCO2 mmHg VBG pO2 mmHg VBG HCO3 (22-26) mmol/L VBG O2 Saturation % VBG Base Excess mmol/L Sodium (135-145) mmol/L Potassium (3.3-5.1) mmol/L Chloride (96-108) mmol/L Carbon Dioxide (22-29) mmol/L Anion Gap (12-20) BUN (9-16) mg/dL Creatinine (0.5-1.4) mg/dL Estim Creat Clear Calc Estimated GFR Random Glucose (60-115) mg/dL Lactic Acid (0.5-2.0) mmol/L Lactic Acid F/U @ 2Hr 2.8 H* (0.5-2.0) mmol/L Calcium (8.4-10.2) mg/dL Magnesium (1.6-2.6) mg/dL Total Bilirubin (0.0-1.0) mg/dL AST (5-37) U/L ALT (0-40) U/L Alkaline Phosphatase (39-117) U/L Troponin I High Sens 36.0 H D (<3.5-35.0) ng/L NT-Pro-B Natriuret Pep (<300) pg/mL Total Protein (6.5-8.0) g/dL Albumin (3.5-5.0) g/dL Influenza Type A (PCR) (Negative) Influenza Type B (PCR) (Negative) RSV RNA Qual (PCR) (Negative) SARS-CoV-2 RNA (RT-PCR) (Negative) Independent Interpretation I performed an independent interpretation of an: Plain X-Ray (Chest x-ray grossly negative) Radiology Impression Discussion of test interpretation with radiology: I have reviewed the radiologist's reading. Social Determinants Patient?s care significantly limited by Social Determinants of Health including: Problems related to primary support group Critical Care Time Critical Care Time Critical Care Time: Yes Total Critical Care Time: 40 Attestation: I have personally provided 40 minutes of critical care time exclusive of time spent on separately billable procedures. ?Time includes review of lab data, radiology results, discussion with consultants, and monitoring for potential decompensation. ?Interventions were performed as documented above Discharge Plan Discharge Clinical Impression: COPD with hypoxia Patient Disposition: Admitted As Inpatient
--- NOTE | 2025-06-27 17:46 | MHC.EDTECH ---
both set of bc & blood work drawn/sent.
[2025-06-27 17:51] LABS: Venous Blood Gas Refer to POC result
[2025-06-27 17:53] LABS: VBG HCO3 25 mmol/L (22-26); VBG O2 % Saturation 70.0 %
[2025-06-27 17:53] LABS: Hematocrit 43.0 % (42.0-52.0); Hemoglobin 14.6 g/dl (14.0-18.0); Mean Corpuscular HGB Conc 34.0 g/dl (31.0-36.0); Mean Corpuscular Hemoglobin 31.3 pg (27.0-33.0); Mean Corpuscular Volume 92.3 fL (80.0-98.0); NRBC Abs Auto 0.000 X10*3/uL (0.0-0.012); NRBC Pct Auto 0.0 /100WBC (0.0-0.2); Platelet Count 157 X10*3/uL (160-400); Red Blood Count 4.66 X10*6/uL (4.60-5.80)
[2025-06-27 17:55] LABS: Alanine Aminotransferase 37 U/L (0-40); Albumin Level 4.4 g/dL (3.5-5.0); Alkaline Phosphatase 117 U/L (39-117); Anion Gap 16 (12-20); Aspartate Amino Transferase 35 U/L (5-37); Blood Urea Nitrogen 16 mg/dL (9-16); Calcium 11.2 mg/dL (8.4-10.2); Carbon Dioxide 24 mmol/L (22-29); Chloride 106 mmol/L (96-108); Creatinine Clr Calc Pharmacy 56.7; Estimated Glomerular Filt Rate > 60; Magnesium 1.9 mg/dL (1.6-2.6); Potassium 3.3 mmol/L (3.3-5.1); Sodium 143 mmol/L (135-145); Total Protein 7.8 g/dL (6.5-8.0)
[2025-06-27 17:57] LABS: White Blood Count 2.5 X10*3/uL (4.8-10.8)
[2025-06-27 18:02] LABS: Troponin-I High Sensitivity 18.5 ng/L (<3.5-35.0)
[2025-06-27] MEDS: Magnesium Sulfate/H2O 2 GM/50 ML PIGGYBACK IV (18:04)
[2025-06-27 18:17] LABS: NT Pro B Type Natriuretic Pept 738.5 pg/mL (<300)
[2025-06-27 18:40] LABS: Resp Syncy Virus RNA Qual PCR NEGATIVE (Negative); SARS COV2 PCR INHOUSE NEGATIVE (Negative)
[2025-06-27 18:47] LABS: Atypical Lymphs Percent Manual 1 % (0-6); Band Neutrophils Percent 1 % (3-5); Eosinophils Absolute Manual 0.1 X10*3/uL (0.0-0.4); Eosinophils Percent Manual 2 % (0-4); Lymphocytes Absolute Manual 1.5 X10*3/uL (1.2-4.9); Lymphocytes Percent Manual 59 % (20-40); Metamyelocytes Percent 1 %; Monocytes Absolute Manual 0.1 X10*3/uL (0.1-1.2); Monocytes Percent Manual 4 % (2-11); Neutrophils Absolute Manual 0.8 X10*3/uL (2.0-8.3); Neutrophils Percent Manual 32 % (45-73); RBC Morphology NOTED
[2025-06-27 18:48] LABS: Burr Cells 1+ (0-2) /OIF
[2025-06-27 18:49] LABS: Ovalocytes 1+ (5-14) /OIF
--- NOTE | 2025-06-27 19:46 | PC.NURSE ---
Pt sinhala speaking, has friend Stacey at bedside who understand some Vietnamese. Pt reports no pain. Breathing unlabored, he does have a junky cough. spO2 90-92% on 2L NC. Skin pwd. Pt fluids completed. Plan of care ongoing, plan to obtain additional labs & ambulatory spO2. Friend Stacey #[phone]. states we can call her if needed & when patient is d/c'd.
[2025-06-27 19:47] LABS: Reflex Lactate? Lactic Acid Added
[2025-06-27 20:48] LABS: ~Lactic Acid-LAB USE ONLY 2.8 mmol/L (0.5-2.0)
[2025-06-27 20:51] LABS: Troponin-I High Sensitivity 36.0 ng/L (<3.5-35.0)
--- NOTE | 2025-06-27 21:13 | PM.IMHP ---
History of Present Illness Date of Service: 06/27/25 Chief Complaint: Cough, fever An 85-year-old male with a past medical history significant for coronary artery disease status post CABG, hypertension, BPH, PVD and hyperlipidemia presents with several days of Cough , fever and worsening dyspnea. The patient is Chinese speaker, he wanted his roommate to translate to him which she did at bedside. The patient reports starting Monday he felt really weak and could not get off the bed. He reported cough and shortness of breath with mucus secretion, noisy chest sounds and dyspnea with notable progression over the past 3 days. The cough is described as wet and productive, associated with increasing fatigue and subjective fevers at home without documented temperatures. He denies diaphoresis and lower extremity swelling. On presentation, he was noted to be hypoxic with oxygen saturation of 88% on room air and had diminished breath sounds bilaterally on examination. He was treated in the ED with nebulized bronchodilators and systemic steroids with partial improvement. Venous blood gas showed no evidence of hypercapnia or acidemia. CXR showed RLL opacity with CBC showing new neutropenia with chemistry showing Hypercalcemia and Lactic acidosis. Given persistent hypoxia and clinical concern for lower respiratory infection, the patient requires hospital admission for further management and monitoring. Review of Systems Review of Systems: reporting fever, chills and weakness No chest pain, palpitation Having shortness of breath and coughing No abdominal pain, nausea or vomiting No urinary symptoms No any rash or wounds PMFSH Medical History Diabetes mellitus Hyperlipidemia HTN (hypertension) PVD (peripheral vascular disease) CAD (coronary artery disease) Family History Father No problems noted. Mother No problems noted. Sister Cancer Surgical History History of gastric surgery Hx of CABG Social History Patient Tobacco Use Status: Never used Tobacco Smoked in Last 30 Days: No Use of substances other than those prescribed or required for medical reasons: No Advance Directives: No Advance Directives Information Provided: No Do you have a plan to hurt others: No Plan Meds Allergies Allergy/AdvReac Type Severity Reaction Status Date / Time No Known Allergies (No Known Allergy Verified 06/27/25 17:14 Allergies*) Home Medications ?Medication ?Instructions ?Recorded ?Confirmed ?Last Taken ?Type aspirin 81 mg chewable tablet 1 tab PO DAILY 03/23/21 04/01/25 Unknown History cilostazol 50 mg tablet 50 mg PO 03/23/21 04/01/25 Unknown History hydrochlorothiazide 25 mg tablet 25 mg PO DAILY 03/23/21 04/01/25 Unknown History ibuprofen 400 mg tablet 0 mg PO 03/23/21 04/01/25 Unknown History metformin 1,000 mg tablet 1,000 mg PO BID 03/23/21 04/01/25 Unknown History blood sugar diagnostic (FreeStyle #10 ea 03/30/21 12/05/23 Unknown History Lite Strips) lancets 33 gauge (TRUEplus Lancets) #100 ea 03/30/21 12/05/23 Unknown History lidocaine 5 % topical ointment topical 03/30/21 04/01/25 Unknown History clotrimazole-betamethasone 1 appl topical 05/04/21 04/01/25 Unknown History %-0.05 % topical cream clobetasol 0.05 % topical cream g topical BID 06/15/21 04/01/25 Unknown History glipizide 10 mg tablet 10 mg PO 08/23/22 04/01/25 Unknown History brimonidine 0.2 % eye drops 1 drp ophthalmic (eye) 04/01/25 04/01/25 Unknown History empagliflozin 10 mg tablet 10 mg PO DAILY 04/01/25 04/01/25 Unknown History (Jardiance) Physical Exam Vital Signs and Narrative: Vital Signs: Last Vital Signs Temp 98.9 F 06/27/25 19:45 Pulse 87 06/27/25 19:45 Resp 17 06/27/25 19:45 BP 112/49 L 06/27/25 19:45 Pulse Ox 89 L 06/27/25 20:33 O2 Del Method Room Air 06/27/25 20:33 O2 Flow Rate 2 06/27/25 19:45 BMI result Body Mass Index 25.5 Const: Other: Constitutional : Awake, interactive, not in distress Neck : Normal inspection, Supple Cardiovascular : RRR, no JVP, no lower extremity edema Respiratory : fair bilateral air entry, basal RLL fine0 crackles, bilateral rhonchi, on O2 supplement Gastrointestinal: soft, lax, Normal bowel sounds, Non tender Skin : Warm, Dry Neurological : Alert & oriented x3, No focal deficit Results Labs 06/27/25 17:33 06/27/25 17:33 Labs: Laboratory Results - last 24 hr 06/27/25 06/27/25 06/27/25 17:33 17:41 17:48 MCV 92.3 MCH 31.3 MCHC 34.0 RDW 15.9 Plt Count 157 L MPV 10.0 Immature Gran % (Auto) Cancelled Neut % (Auto) Cancelled Lymph % (Auto) Cancelled [place] % (Auto) Cancelled Eos % (Auto) Cancelled Baso % (Auto) Cancelled Lymph # (Auto) Cancelled [place] # (Auto) Cancelled Eos # (Auto) Cancelled Baso # (Auto) Cancelled Abs Immat Gran (auto) Cancelled Absolute Neuts (auto) Cancelled Absolute Nucleated RBC 0.000 Nucleated RBC % (auto) 0.0 Neutrophils % (Manual) 32 L Band Neutrophils % 1 L Lymphocytes % (Manual) 59 H Atypical Lymphs % (Man) 1 Monocytes % (Manual) 4 Eosinophils % (Manual) 2 Metamyelocytes % 1 Abs Neuts (Manual) 0.8 L Lymphocytes # (Manual) 1.5 Monocytes # (Manual) 0.1 Eosinophils # (Manual) 0.1 Platelet Estimate NORMAL Plt Morphology Comment NORMAL RBC Morphology NOTED Ovalocytes 1+ (5-14) [place] Cells 1+ (0-2) VBG pH 7.44 H VBG pCO2 36 VBG pO2 46 VBG HCO3 25 VBG O2 Saturation 70.0 VBG Base Excess 1.4 Anion Gap 16 Estim Creat Clear Calc 56.7 Estimated GFR > 60 Random Glucose 263 H Lactic Acid 2.8 H* Lactic Acid F/U @ 2Hr Calcium 11.2 H D Magnesium 1.9 Total Bilirubin 1.9 H AST 35 ALT 37 Alkaline Phosphatase 117 Troponin I High Sens 18.5 NT-Pro-B Natriuret Pep 738.5 H Total Protein 7.8 Albumin 4.4 Influenza Type A (PCR) NEGATIVE Influenza Type B (PCR) NEGATIVE RSV RNA Qual (PCR) NEGATIVE SARS-CoV-2 RNA (RT-PCR) NEGATIVE 06/27/25 20:21 MCV MCH MCHC RDW Plt Count MPV Immature Gran % (Auto) Neut % (Auto) Lymph % (Auto) [place] % (Auto) Eos % (Auto) Baso % (Auto) Lymph # (Auto) [place] # (Auto) Eos # (Auto) Baso # (Auto) Abs Immat Gran (auto) Absolute Neuts (auto) Absolute Nucleated RBC Nucleated RBC % (auto) Neutrophils % (Manual) Band Neutrophils % Lymphocytes % (Manual) Atypical Lymphs % (Man) Monocytes % (Manual) Eosinophils % (Manual) Metamyelocytes % Abs Neuts (Manual) Lymphocytes # (Manual) Monocytes # (Manual) Eosinophils # (Manual) Platelet Estimate Plt Morphology Comment RBC Morphology Ovalocytes [place] Cells VBG pH VBG pCO2 VBG pO2 VBG HCO3 VBG O2 Saturation VBG Base Excess Anion Gap Estim Creat Clear Calc Estimated GFR Random Glucose Lactic Acid Lactic Acid F/U @ 2Hr 2.8 H* Calcium Magnesium Total Bilirubin AST ALT Alkaline Phosphatase Troponin I High Sens 36.0 H D NT-Pro-B Natriuret Pep Total Protein Albumin Influenza Type A (PCR) Influenza Type B (PCR) RSV RNA Qual (PCR) SARS-CoV-2 RNA (RT-PCR) Assessment and Plan (1) Sepsis: Status: Acute (2) Acute respiratory failure with hypoxia: Status: Acute (3) Pneumonia: Status: Acute (4) Acute lactic acidosis: Status: Acute (5) Hypercalcemia: Status: Acute Plan An 85-year-old male with a past medical history significant for coronary artery disease status post CABG, hypertension, BPH, PVD and hyperlipidemia presents with several days of Cough , fever and worsening dyspnea. # Sepsis 2/2 Pneumonia complicated with Lactic acidosis complicated with acute hypoxic respiratory failure CXR showing possible RLL infiltrate To check Procalcitonin and CT scan (R\O any mass) This could be viral\bacterial Follow blood culture Sent expanded Respiratory viral panel Covered with Azithromycin and Ceftriaxone, to continue Wean O2 down as tolerated [employer] eval (reported coughing on occasions with food) # Moderate NEutropenia ANC 640 Neutropenic precautions This is likely from sepsis Treat infection, continue work up, monitor CBC Consider further work up if not improving # Hx Smoking, possible COPD w exacerbation bilateral wheezing and catherinechi received a dose of steroids, to hold on more for now Continue Duonebs Dung and PrN monitor response # Acute hypercalcemia Could be related to HCT usage Give fluid bolus, check PTH follow Ca level # Lactic acidosis, acute Likely sepsis related but could be secondary to Metformin Hold Metformin Fluid bolus, treat infection, O2 supplement VBG not showing acidosis Follow LA level # BPH Continue Tamsulosin MED REC PENDING DVT PPx Lovenox The patient will need 2 overnight hospital stay for treatment of sepsis pending final cultures and evaluation of neutropenia. Quality Stroke Does the patient have a stroke diagnosis?: No VTE Prior VTE?: No VTE Risk Level:: Medical - moderate - high VTE Device Contraindication: Treatment Not Indicated VTE Drug Contraindication: N/A - Med Ordered
--- NOTE | 2025-06-27 21:52 | PHA.MEDREC ---
Addendum entered by Tatiana Wasserman [facility] 06/27/25 21:54: Patient also stated he is only taking cilostazol once daily, though pharmacy directions are twice daily Original Note: Pharmacy Consult ? Medication Reconciliation Pharmacy has completed the medication reconciliation.Med rec complete, spoke to patient and . Compared with pharmacy claim history. Patient did state that he only takes half of the telmisartan tab when blood pressure is elevated or his BP can drop too low
[2025-06-27 22:25] LABS: Parathyroid Hormone Intact 83.6 pg/mL (8.7-77.1)
[2025-06-27 22:26] LABS: Reflex Lactate? 2 Y
[2025-06-27 22:39] LABS: Procalcitonin 0.34 ng/mL
[2025-06-27 23:05] LABS: ~Lactic Acid-LAB USE ONLY 2.0 mmol/L (0.5-2.0)
[2025-06-28] VITALS (11 sets, daily range): BP systolic 122–166; BP diastolic 57–82; PULSE 67–89; RESP 16–22; TEMP 35.7–37.1; O2SAT 93–98; BMI 23.0
[2025-06-28] MEDS: Brimonidine Tartrate 0.2% Oph 5 ML BOTTLE 1 DROP EYE-BOTH ×2 (06:03→18:06)
[2025-06-28 07:41] LABS: Glucose, Whole Blood 243 mg/dL (60-115)
[2025-06-28 07:59] LABS: Hematocrit 35.2 % (42.0-52.0); Hemoglobin 12.3 g/dl (14.0-18.0); Imm Gran Abs Auto 0.03 X10*3/uL (0.00-0.03); Imm Gran Pct Auto 1.9 % (0.0-0.4); Lymphocytes Absolute Auto 0.6 X10*3/uL (1.2-4.9); MANUAL DIFF FLAG SCAN; Mean Corpuscular HGB Conc 34.9 g/dl (31.0-36.0); Mean Corpuscular Hemoglobin 31.5 pg (27.0-33.0); Mean Corpuscular Volume 90.3 fL (80.0-98.0); NRBC Abs Auto 0.000 X10*3/uL (0.0-0.012); NRBC Pct Auto 0.0 /100WBC (0.0-0.2); Platelet Count 126 X10*3/uL (160-400); Red Blood Count 3.90 X10*6/uL (4.60-5.80); SCAN SMEAR FLAG 1
[2025-06-28 08:01] LABS: White Blood Count 1.6 X10*3/uL (4.8-10.8)
[2025-06-28] MEDS: Albuterol/Iprat 2.5/0.5MG 3 ML AMPUL.NEB INHALE ×3 (08:14→19:03)
[2025-06-28 08:19] LABS: Alanine Aminotransferase 25 U/L (0-40); Albumin Level 3.8 g/dL (3.5-5.0); Alkaline Phosphatase 95 U/L (39-117); Anion Gap 17 (12-20); Aspartate Amino Transferase 23 U/L (5-37); Blood Urea Nitrogen 22 mg/dL (9-16); Carbon Dioxide 21 mmol/L (22-29); Chloride 111 mmol/L (96-108); Creatinine Clr Calc Pharmacy 63.1; Estimated Glomerular Filt Rate > 60; Potassium 3.7 mmol/L (3.3-5.1); Sodium 145 mmol/L (135-145); Total Protein 6.7 g/dL (6.5-8.0)
[2025-06-28 08:35] LABS: Calcium 9.4 mg/dL (8.4-10.2)
[2025-06-28] MEDS: 0.9 % Sodium Chloride Flush 3 ML SYRINGE IVFLUSH ×2 (08:50→20:57)
[2025-06-28 09:19] LABS: Chlamydia pneumoniae PCR Not Detected (Not Detect.); Coronavirus 229E PCR Not Detected (Not Detect.); Coronavirus HKU1 PCR Not Detected (Not Detect.); Coronavirus NL63 PCR Not Detected (Not Detect.); Coronavirus OC43 PCR Not Detected (Not Detect.); RSV PCR Not Detected (Not Detect.); Rhino/Enterovirus PCR Not Detected (Not Detect.); SARS-CoV-2 PCR Not Detected (Not Detect.)
[2025-06-28 10:17] LABS: Influenza A H1 PCR Not Detected (Not Detect.); Influenza A H3 PCR Not Detected (Not Detect.)
[2025-06-28 10:18] LABS: Influenza A H1-2009 PCR Not Detected (Not Detect.)
[2025-06-28 11:44] LABS: Glucose, Whole Blood 317 mg/dL (60-115)
--- NOTE | 2025-06-28 12:09 | HO.PM.IMPN ---
Subjective Subjective Date of Service: 06/28/25 Review of Systems Follow up PNA still with cough had 3 liters of oxygen on Physical Exam Exam: Exam: Appearing in no acute distress lung sounds are clear to auscultation heart regular rate rhythm, clear S1, S2 positive bowel sounds, abdomen is soft, nontender neuro patient is alert x3, no focal deficits Vital Signs: Vital Signs: Last Vital Signs Temp 96.3 F L 06/28/25 07:30 Pulse 75 06/28/25 08:16 Resp 20 06/28/25 08:16 BP 166/81 H 06/28/25 07:30 Pulse Ox 98 06/28/25 07:30 O2 Del Method Room Air 06/28/25 07:30 O2 Flow Rate 2 06/28/25 03:59 BMI result Body Mass Index 23.0 Objective Data Active Medications Acetaminophen (Acetaminophen 325 Mg Tablet) 650 mg PO Q6H PRN PRN Reason: Pain, Mild 1-3,fever,headache Albuterol/Ipratropium (Albuterol/Iprat 2.5/0.5mg 3 Ml Ampul.Neb) 3 ml INHALE Q4H PRN PRN Reason: Shortness of Breath/Wheezing Albuterol/Ipratropium (Albuterol/Iprat 2.5/0.5mg 3 Ml Ampul.Neb) 3 ml INHALE RQ6H WHILE AWAKE [facility] Last Admin: 06/28/25 08:14 Dose: 3 ml Documented By: ERIKA Aspirin (Aspirin 81 Mg Tab.Chew) 81 mg PO DAILY [facility] Last Admin: 06/28/25 08:49 Dose: 81 mg Documented By: ANNALISE Atorvastatin Calcium (Atorvastatin Calcium 80 Mg Tablet) 80 mg PO DAILY [facility] Last Admin: 06/28/25 08:49 Dose: 80 mg Documented By: ANNALISE Benzonatate (Benzonatate 100 Mg Capsule) 100 mg PO TID PRN PRN Reason: Cough Brimonidine Tartrate (Brimonidine Tartrate 0.2% Oph 5 Ml Bottle) 1 drop EYE-BOTH BID@0600,1800 [facility] Last Admin: 06/28/25 06:03 Dose: 1 drop Documented By: AMMY Calcium Carbonate (Calcium Carbonate 750 Mg Tab.Chew) 750 mg PO Q4H PRN PRN Reason: Heartburn Enoxaparin Sodium (Enoxaparin Sodium 40 Mg/0.4 Ml Syringe) 40 mg SUBCUT Q24H [facility] Last Admin: 06/27/25 22:06 Dose: 40 mg Documented By: CHASTITY Ceftriaxone Sodium 1 gm/ (Sodium Chloride) 50 mls @ 100 mls/hr IV Q24H [facility] Azithromycin 500 mg/ Sodium (Chloride) 250 mls @ 125 mls/hr IV Q24H [facility] Insulin Human Lispro (Insulin Lispro 100 Unit/Ml 3 Ml Vial) 0 unit SUBCUT QIDACHS [facility]; Protocol Last Admin: 06/28/25 11:55 Dose: 8 unit Documented By: ANNALISE Magnesium Hydroxide (Milk Of Magnesia 30 Ml Oral.Susp) 30 ml PO DAILY PRN PRN Reason: Constipation Melatonin (Melatonin 3 Mg Tablet) 6 mg PO BEDTIME PRN PRN Reason: Insomnia Ondansetron HCl (Ondansetron Hcl 4 Mg/2 Ml Vial) 4 mg IVPUSH Q8H PRN PRN Reason: Nausea and Vomiting Sodium Chloride (0.9 % Sodium Chloride Flush 3 Ml Syringe) 3 ml IVFLUSH QSHIFT [facility] Last Admin: 06/28/25 08:50 Dose: 3 ml Documented By: ANNALISE Tamsulosin HCl (Tamsulosin Hcl 0.4 Mg Capsule) 0.8 mg PO BEDTIME [facility] Last Admin: 06/27/25 22:01 Dose: 0.8 mg Documented By: CHASTITY Labs 06/28/25 07:32 06/28/25 07:32 Labs: Laboratory Results - last 24 hr 06/27/25 06/27/25 06/27/25 17:33 17:33 17:41 MCV 92.3 MCH 31.3 MCHC 34.0 RDW 15.9 Plt Count 157 L MPV 10.0 Immature Gran % (Auto) Cancelled Neut % (Auto) Cancelled Lymph % (Auto) Cancelled [place] % (Auto) Cancelled Eos % (Auto) Cancelled Baso % (Auto) Cancelled Lymph # (Auto) Cancelled [place] # (Auto) Cancelled Eos # (Auto) Cancelled Baso # (Auto) Cancelled Abs Immat Gran (auto) Cancelled Absolute Neuts (auto) Cancelled Absolute Nucleated RBC 0.000 Nucleated RBC % (auto) 0.0 Neutrophils % (Manual) 32 L Band Neutrophils % 1 L Lymphocytes % (Manual) 59 H Atypical Lymphs % (Man) 1 Monocytes % (Manual) 4 Eosinophils % (Manual) 2 Metamyelocytes % 1 Abs Neuts (Manual) 0.8 L Lymphocytes # (Manual) 1.5 Monocytes # (Manual) 0.1 Eosinophils # (Manual) 0.1 Platelet Estimate NORMAL Plt Morphology Comment NORMAL RBC Morphology NOTED Ovalocytes 1+ (5-14) [place] Cells 1+ (0-2) Smear Tech's Comments VBG pH VBG pCO2 VBG pO2 VBG HCO3 VBG O2 Saturation VBG Base Excess Anion Gap 16 Estim Creat Clear Calc 56.7 Estimated GFR > 60 POC Glucose Random Glucose 263 H Lactic Acid 2.8 H* Lactic Acid F/U @ 2Hr Lactic Acid F/U @ 4Hr Calcium 11.2 H D Magnesium 1.9 Total Bilirubin 1.9 H AST 35 ALT 37 Alkaline Phosphatase 117 Lactate Dehydrogenase Troponin I High Sens 18.5 NT-Pro-B Natriuret Pep 738.5 H Total Protein 7.8 Albumin 4.4 Procalcitonin PTH Intact Respiratory Panel [place]cell See Note Adenovirus (Rapid PCR) Not Detected B.pert (TEM-PCR) Not Detected B.parapertussis DNA PCR Not Detected C. pneumoniae DNA (PCR) Not Detected Coronavirus OC43 (PCR) Not Detected Coronavirus HKU1 (PCR) Not Detected Coronavirus 229E (PCR) Not Detected Coronavirus NL63 (PCR) Not Detected Human Metapneumovir PCR Not Detected Influenza A (RT-PCR) Not Detected Influenza A (H1) PCR Not Detected Influ A (H1/09) PCR Not Detected Influenza A (H3) PCR Not Detected Influenza Type A (PCR) NEGATIVE Influenza B (RT-PCR) Not Detected Influenza Type B (PCR) NEGATIVE M. pneumoniae (PCR) Not Detected Parainfluenza 1 (PCR) Not Detected Parainfluenza 2 (PCR) Not Detected Parainfluenza 3 (PCR) Not Detected Parainfluenza 4 (PCR) Not Detected RSV (PCR) Not Detected RSV RNA Qual (PCR) NEGATIVE Entero/Rhino (PCR) Not Detected SARS-CoV-2 RNA (RT-PCR) NEGATIVE Not Detected 06/27/25 06/27/25 06/27/25 17:48 20:21 21:54 MCV MCH MCHC RDW Plt Count MPV Immature Gran % (Auto) Neut % (Auto) Lymph % (Auto) [place] % (Auto) Eos % (Auto) Baso % (Auto) Lymph # (Auto) [place] # (Auto) Eos # (Auto) Baso # (Auto) Abs Immat Gran (auto) Absolute Neuts (auto) Absolute Nucleated RBC Nucleated RBC % (auto) Neutrophils % (Manual) Band Neutrophils % Lymphocytes % (Manual) Atypical Lymphs % (Man) Monocytes % (Manual) Eosinophils % (Manual) Metamyelocytes % Abs Neuts (Manual) Lymphocytes # (Manual) Monocytes # (Manual) Eosinophils # (Manual) Platelet Estimate Plt Morphology Comment RBC Morphology Ovalocytes Delfina Cells Smear Tech's Comments VBG pH 7.44 H VBG pCO2 36 VBG pO2 46 VBG HCO3 25 VBG O2 Saturation 70.0 VBG Base Excess 1.4 Anion Gap Estim Creat Clear Calc Estimated GFR POC Glucose Random Glucose Lactic Acid Lactic Acid F/U @ 2Hr 2.8 H* Lactic Acid F/U @ 4Hr Calcium Magnesium Total Bilirubin AST ALT Alkaline Phosphatase Lactate Dehydrogenase 162 Troponin I High Sens 36.0 H D NT-Pro-B Natriuret Pep Total Protein Albumin Procalcitonin 0.34 PTH Intact 83.6 H Respiratory Panel Purcell Adenovirus (Rapid PCR) B.pert (TEM-PCR) B.parapertussis DNA PCR C. pneumoniae DNA (PCR) Coronavirus OC43 (PCR) Coronavirus HKU1 (PCR) Coronavirus 229E (PCR) Coronavirus NL63 (PCR) Human Metapneumovir PCR Influenza A (RT-PCR) Influenza A (H1) PCR Influ A (H1/09) PCR Influenza A (H3) PCR Influenza Type A (PCR) Influenza B (RT-PCR) Influenza Type B (PCR) M. pneumoniae (PCR) Parainfluenza 1 (PCR) Parainfluenza 2 (PCR) Parainfluenza 3 (PCR) Parainfluenza 4 (PCR) RSV (PCR) RSV RNA Qual (PCR) Entero/Rhino (PCR) SARS-CoV-2 RNA (RT-PCR) 06/27/25 06/28/25 06/28/25 22:41 07:28 07:32 MCV 90.3 MCH 31.5 MCHC 34.9 RDW 15.9 Plt Count 126 L MPV 9.9 Immature Gran % (Auto) 1.9 H Neut % (Auto) 47.8 Lymph % (Auto) 40.3 H [place] % (Auto) 9.4 Eos % (Auto) 0.0 Baso % (Auto) 0.6 Lymph # (Auto) 0.6 L [place] # (Auto) 0.2 Eos # (Auto) 0.0 Baso # (Auto) 0.0 Abs Immat Gran (auto) 0.03 Absolute Neuts (auto) 0.8 L Absolute Nucleated RBC 0.000 Nucleated RBC % (auto) 0.0 Neutrophils % (Manual) Band Neutrophils % Lymphocytes % (Manual) Atypical Lymphs % (Man) Monocytes % (Manual) Eosinophils % (Manual) Metamyelocytes % Abs Neuts (Manual) Lymphocytes # (Manual) Monocytes # (Manual) Eosinophils # (Manual) Platelet Estimate Plt Morphology Comment RBC Morphology Ovalocytes [place] Cells Smear Tech's Comments VERIFIED VBG pH VBG pCO2 VBG pO2 VBG HCO3 VBG O2 Saturation VBG Base Excess Anion Gap 17 Estim Creat Clear Calc 63.1 Estimated GFR > 60 POC Glucose 243 H Random Glucose 238 H Lactic Acid Lactic Acid F/U @ 2Hr Lactic Acid F/U @ 4Hr 2.0 Calcium 9.4 D Magnesium Total Bilirubin 1.3 H AST 23 ALT 25 Alkaline Phosphatase 95 Lactate Dehydrogenase Troponin I High Sens NT-Pro-B Natriuret Pep Total Protein 6.7 Albumin 3.8 Procalcitonin PTH Intact Respiratory Panel [place] Adenovirus (Rapid PCR) B.pert (TEM-PCR) B.parapertussis DNA PCR C. pneumoniae DNA (PCR) Coronavirus OC43 (PCR) Coronavirus HKU1 (PCR) Coronavirus 229E (PCR) Coronavirus NL63 (PCR) Human Metapneumovir PCR Influenza A (RT-PCR) Influenza A (H1) PCR Influ A (H1/09) PCR Influenza A (H3) PCR Influenza Type A (PCR) Influenza B (RT-PCR) Influenza Type B (PCR) M. pneumoniae (PCR) Parainfluenza 1 (PCR) Parainfluenza 2 (PCR) Parainfluenza 3 (PCR) Parainfluenza 4 (PCR) RSV (PCR) RSV RNA Qual (PCR) Entero/Rhino (PCR) SARS-CoV-2 RNA (RT-PCR) 06/28/25 11:38 MCV MCH MCHC RDW Plt Count MPV Immature Gran % (Auto) Neut % (Auto) Lymph % (Auto) [place] % (Auto) Eos % (Auto) Baso % (Auto) Lymph # (Auto) [place] # (Auto) Eos # (Auto) Baso # (Auto) Abs Immat Gran (auto) Absolute Neuts (auto) Absolute Nucleated RBC Nucleated RBC % (auto) Neutrophils % (Manual) Band Neutrophils % Lymphocytes % (Manual) Atypical Lymphs % (Man) Monocytes % (Manual) Eosinophils % (Manual) Metamyelocytes % Abs Neuts (Manual) Lymphocytes # (Manual) Monocytes # (Manual) Eosinophils # (Manual) Platelet Estimate Plt Morphology Comment RBC Morphology Ovalocytes [place] Cells Smear Tech's Comments VBG pH VBG pCO2 VBG pO2 VBG HCO3 VBG O2 Saturation VBG Base Excess Anion Gap Estim Creat Clear Calc Estimated GFR POC Glucose 317 H Random Glucose Lactic Acid Lactic Acid F/U @ 2Hr Lactic Acid F/U @ 4Hr Calcium Magnesium Total Bilirubin AST ALT Alkaline Phosphatase Lactate Dehydrogenase Troponin I High Sens NT-Pro-B Natriuret Pep Total Protein Albumin Procalcitonin PTH Intact Respiratory Panel [place]cell Adenovirus (Rapid PCR) B.pert (TEM-PCR) B.parapertussis DNA PCR C. pneumoniae DNA (PCR) Coronavirus OC43 (PCR) Coronavirus HKU1 (PCR) Coronavirus 229E (PCR) Coronavirus NL63 (PCR) Human Metapneumovir PCR Influenza A (RT-PCR) Influenza A (H1) PCR Influ A (H1/09) PCR Influenza A (H3) PCR Influenza Type A (PCR) Influenza B (RT-PCR) Influenza Type B (PCR) M. pneumoniae (PCR) Parainfluenza 1 (PCR) Parainfluenza 2 (PCR) Parainfluenza 3 (PCR) Parainfluenza 4 (PCR) RSV (PCR) RSV RNA Qual (PCR) Entero/Rhino (PCR) SARS-CoV-2 RNA (RT-PCR) Assessment and Plan (1) HTN (hypertension): Status: Acute Plan An 85-year-old male with a past medical history significant for coronary artery disease status post CABG, hypertension, BPH, PVD and hyperlipidemia presents with several days of Cough , fever and worsening dyspnea. Sepsis 2/2 Pneumonia complicated with Lactic acidosis complicated with acute hypoxic respiratory failure CXR showing possible RLL infiltrate normal Procalcitonin and CT bilateral bibasilar pneumonia Follow blood culture RPP negative Covered with Azithromycin and Ceftriaxone Wean O2 down as tolerated [employer] eval (reported coughing on occasions with food) Moderate NEutropenia ANC 640 Neutropenic precautions This is likely from sepsis Treat infection, continue work up, monitor CBC Consider further work up if not improving Hx Smoking, possible COPD w exacerbation bilateral wheezing and rhonchi received a dose of steroids Continue Duonebs Dung and PrN monitor response Acute hypercalcemia. Resolved Could be related to HCT usage s/p fluid bolus, PTH 83.6 follow Ca level Lactic acidosis, acute Likely sepsis related but could be secondary to Metformin Hold Metformin Fluid bolus, treat infection, O2 supplement VBG not showing acidosis Follow LA level BPH Continue Tamsulosin DVT PPx Lovenox The patient will need 2 overnight hospital stay for treatment of sepsis pending final cultures and evaluation of neutropenia. Quality Stroke Does the patient have a stroke diagnosis?: No VTE Prior VTE?: No VTE Risk Level:: Medical - moderate - high VTE Device Contraindication: Treatment Not Indicated VTE Drug Contraindication: N/A - Med Ordered
--- NOTE | 2025-06-28 13:37 | MHC.CM.PN ---
Patient is Japanese speaking. CM assessment completed w/ Japanese speaking RN assistance. IMM delivered. Patient lives at home w/ S.Jason Amador. Independent w/ all care. Denies use of services or DME. PCP @ [facility] HCP on file and verified - [facility] is prema amador. DP: PT rec outpatient services. Home self care. S.O. to transport. CM will continue to follow.
[2025-06-28 16:11] LABS: Glucose, Whole Blood 335 mg/dL (60-115)
[2025-06-28 20:49] LABS: Glucose, Whole Blood 295 mg/dL (60-115)
[2025-06-29] VITALS (10 sets, daily range): BP systolic 128–160; BP diastolic 60–70; PULSE 63–80; RESP 14–18; TEMP 36–36.8; O2SAT 92–97
--- NOTE | 2025-06-29 | ECG_ITS ---
Test Reason : chest pain Blood Pressure : */* mmHG Vent. Rate : 71 BPM Atrial Rate : 71 BPM P-R Int : 176 ms QRS Dur : 130 ms QT Int : 440 ms P-R-T Axes : 25 -25 81 degrees QTcB Int : 478 ms Sinus rhythm with Premature supraventricular complexes Non-specific intra-ventricular conduction block Minimal voltage criteria for LVH, may be normal variant ( Jesus product ) Nonspecific T wave abnormality Abnormal ECG When compared with ECG of 27-Jun-2025 17:23, Vent. rate has decreased by 37 bpm Referred By: Marian Harper Electronically Signed By: BRYANT SHERWOOD MD
[2025-06-29] MEDS: Brimonidine Tartrate 0.2% Oph 5 ML BOTTLE 1 DROP EYE-BOTH ×2 (05:39→18:10)
[2025-06-29] MEDS: Albuterol/Iprat 2.5/0.5MG 3 ML AMPUL.NEB INHALE ×3 (07:42→19:04)
[2025-06-29 07:45] LABS: Glucose, Whole Blood 218 mg/dL (60-115)
[2025-06-29 08:39] LABS: Hematocrit 34.9 % (42.0-52.0); Hemoglobin 12.0 g/dl (14.0-18.0); Mean Corpuscular HGB Conc 34.4 g/dl (31.0-36.0); Mean Corpuscular Hemoglobin 31.4 pg (27.0-33.0); Mean Corpuscular Volume 91.4 fL (80.0-98.0); NRBC Abs Auto 0.000 X10*3/uL (0.0-0.012); NRBC Pct Auto 0.0 /100WBC (0.0-0.2); Platelet Count 116 X10*3/uL (160-400); Red Blood Count 3.82 X10*6/uL (4.60-5.80)
[2025-06-29 08:45] LABS: White Blood Count 1.7 X10*3/uL (4.8-10.8)
--- NOTE | 2025-06-29 08:50 | PM.DS ---
DS: Providers Provider Date of admission: 06/27/25 21:03 Date of discharge: 06/30/25 Primary care physician: Unknown Physician DS: Diagnosis Discharge Diagnosis (1) HTN (hypertension): Status: Acute DS: Summary Hospital Course Hospital Course: History and physical as per admitting provider. An 85-year-old male with a past medical history significant for coronary artery disease status post CABG, hypertension, BPH, PVD and hyperlipidemia presents with several days of Cough fever and worsening dyspnea. The patient is Greek speaker, he wanted his roommate to translate to him which she did at bedside. The patient reports starting Monday he felt really weak and could not get off the bed. He reported cough and shortness of breath with mucus secretion, noisy chest sounds and dyspnea with notable progression over the past 3 days. The cough is described as wet and productive, associated with increasing fatigue and subjective fevers at home without documented temperatures. He denies diaphoresis and lower extremity swelling. On presentation, he was noted to be hypoxic with oxygen saturation of 88% on room air and had diminished breath sounds bilaterally on examination. He was treated in the ED with nebulized bronchodilators and systemic steroids with partial improvement. Venous blood gas showed no evidence of hypercapnia or acidemia. CXR showed RLL opacity with CBC showing new neutropenia with chemistry showing Hypercalcemia and Lactic acidosis. Given persistent hypoxia and clinical concern for lower respiratory infection, the patient requires hospital admission for further management and monitoring. Sepsis 2/2 Pneumonia complicated with Lactic acidosis complicated with acute hypoxic respiratory failure. normal Procalcitonin and CT bilateral bibasilar pneumonia Negative blood culture, RPP negative, Covered with Azithromycin and Ceftriaxone, weaned off of oxygen. Home with ceftin and azithromycin for a few days. Moderate NEutropenia. ANC 640. Likely from sepsis treated with antibiotics for pneumonia. Follow up with hematology for o/p follow up Hx Smoking, possible COPD w exacerbation . Received 1 dose of IV steroid, treated with DuoNebs Acute hypercalcemia. Resolved. Status post fluid bolus. PTH 83.6 Lactic acidosis, acute , Likely sepsis related but could be secondary to Metformin. Metformin held during hospitalization. Treated with IV fluid, VBG had showed no acidosis BPH Continue Tamsulosin Time Attestation Discharge Coordination Time (in mins): 45 Quality: Safe Use of Opioids Does Pt have an Active Cancer Diagnosis on the Problem List?: No Quality: Stroke Does the patient have a stroke diagnosis?: No Physical Exam Exam: Exam: Appearing in no acute distress head is normocephalic atraumatic eyes pupils are PERRLA sclera is anicteric mouth throat mucous membranes are intact and moist neck is supple no lymphadenopathy, no JVD noted lung sounds are clear to auscultation heart regular rate rhythm, clear S1, S2 positive bowel sounds, abdomen is soft, nontender neuro patient is alert x3, no focal deficits Vital Signs: Vital Signs: Last Vital Signs Temp 98.1 F 06/29/25 07:46 Pulse 63 06/29/25 07:46 Resp 16 06/29/25 07:46 BP 157/68 H 06/29/25 07:46 Pulse Ox 97 06/29/25 07:46 O2 Del Method Room Air 06/29/25 07:46 O2 Flow Rate 2 06/28/25 03:59 BMI result Body Mass Index 23.0 DS: Data Data Completed and Pending Labs on day of discharge: Laboratory Results - last 24 hr 06/27/25 06/28/25 06/28/25 17:33 11:38 16:05 WBC RBC Hgb Hct MCV MCH MCHC RDW Plt Count MPV Absolute Nucleated RBC Nucleated RBC % (auto) POC Glucose 317 H 335 H Respiratory Panel Purcell See Note Adenovirus (Rapid PCR) Not Detected B.pert (TEM-PCR) Not Detected B.parapertussis DNA PCR Not Detected C. pneumoniae DNA (PCR) Not Detected Coronavirus OC43 (PCR) Not Detected Coronavirus HKU1 (PCR) Not Detected Coronavirus 229E (PCR) Not Detected Coronavirus NL63 (PCR) Not Detected Human Metapneumovir PCR Not Detected Influenza A (RT-PCR) Not Detected Influenza A (H1) PCR Not Detected Influ A (H1/09) PCR Not Detected Influenza A (H3) PCR Not Detected Influenza B (RT-PCR) Not Detected M. pneumoniae (PCR) Not Detected Parainfluenza 1 (PCR) Not Detected Parainfluenza 2 (PCR) Not Detected Parainfluenza 3 (PCR) Not Detected Parainfluenza 4 (PCR) Not Detected RSV (PCR) Not Detected Entero/Rhino (PCR) Not Detected SARS-CoV-2 RNA (RT-PCR) Not Detected 06/28/25 06/29/25 06/29/25 20:31 07:41 08:11 WBC 1.7 L RBC 3.82 L Hgb 12.0 L Hct 34.9 L MCV 91.4 MCH 31.4 MCHC 34.4 RDW 16.2 H Plt Count 116 L MPV 9.9 Absolute Nucleated RBC 0.000 Nucleated RBC % (auto) 0.0 POC Glucose 295 H 218 H Respiratory Panel [place]cell Adenovirus (Rapid PCR) B.pert (TEM-PCR) B.parapertussis DNA PCR C. pneumoniae DNA (PCR) Coronavirus OC43 (PCR) Coronavirus HKU1 (PCR) Coronavirus 229E (PCR) Coronavirus NL63 (PCR) Human Metapneumovir PCR Influenza A (RT-PCR) Influenza A (H1) PCR Influ A (H1/09) PCR Influenza A (H3) PCR Influenza B (RT-PCR) M. pneumoniae (PCR) Parainfluenza 1 (PCR) Parainfluenza 2 (PCR) Parainfluenza 3 (PCR) Parainfluenza 4 (PCR) RSV (PCR) Entero/Rhino (PCR) SARS-CoV-2 RNA (RT-PCR) Preliminary micro results at discharge 06/27/25 17:41 Blood Culture - Preliminary Blood - Venous No growth after 24 hours. 06/27/25 17:41 Blood Culture - Preliminary Blood - Venous No growth after 24 hours. Discharge Plan Discharge Anticipated Discharge Date/Time: 06/30/25 07:21 Patient Disposition: Home Health Service Discharge Diagnosis: Sepsis Pneumonia Referrals: Janie King MD [Physician, Hematology & Oncology] - 1 Week Referral Note: neutropenia Discharge Medications: New cefuroxime axetil 500 mg tablet 500 mg PO BID Qty: 6 0RF azithromycin 500 mg tablet 500 mg PO DAILY 3 Days Qty: 3 0RF benzonatate 100 mg capsule 100 mg PO TID PRN (Reason: cough) Qty: 15 0RF Continued nitroglycerin 0.4 mg tablet, sublingual 0.4 mg sublingual Q5M PRN (Reason: Chest Pain) Rx Instructions: 0.4mg every 5 minutes, not to exceed 3 doses per episode. rosuvastatin 40 mg tablet 40 mg PO DAILY tamsulosin 0.4 mg capsule 0.8 mg PO DAILY@1700 telmisartan 40 mg Tablet 20 mg PO DAILY PRN (Reason: sbp>100) aspirin 81 mg tablet,chewable 1 tab PO DAILY cilostazol 50 mg tablet 50 mg PO DAILY hydrochlorothiazide 25 mg tablet 25 mg PO DAILY metformin 1,000 mg tablet 1,000 mg PO BID (DME) lancets [TRUEplus Lancets] 33 gauge misc See Rx Instructions topical .MEDSUPPLY Qty: 100 Rx Instructions: As directed (DME) FreeStyle Lite Strips Strip See Rx Instructions Not Applicable BID Qty: 10 Rx Instructions: As directed clotrimazole-betamethasone 1-0.05 % cream 1 appl topical BID PRN (Reason: Rash) (DME) blood pressure monitor [Blood Pressure Kit] Kit See Rx Instructions .Route Qty: 1 0RF Rx Instructions: As directed glipizide 10 mg tablet 20 mg PO BIDAC brimonidine 0.2 % drops 1 drp ophthalmic (eye) BID@0600,1800 Jardiance 10 mg tablet 10 mg PO DAILY@0600 Discharge Orders: Discharge Order (Routine); Ordered 06/30/25 Ordered By: Marian Harper Diet: Advance to usual diet Activity on Discharge: As tolerated Stand Alone Forms: Patient Portal Discharge page Print Language: Greek Other Ambulatory Orders: Complete Blood Count Auto Diff (Routine) Timeframe: 1 Week Facility: [facility] - Location: Laboratory Ordered By: Marian Harper Care Plan Goals: Complete course of antibiotics for pneumonia Health Concerns: Sepsis Pneumonia Plan of Treatment: Follow up with primary care provider as needed Take all medications as prescribed Assessment: See discharge summary
[2025-06-29 11:55] LABS: Glucose, Whole Blood 249 mg/dL (60-115)
--- NOTE | 2025-06-29 14:56 | P.CNHO_ITS ---
Subjective - Subjective Chief complaint: Consult for: Leukopenia and thrombocytopenia. Patient: new to practice Consult date: 06/29/25 Requesting Physician: Marian Harper. Primary Care Provider: Unknown Physician Family Provider: Unknown. Medical Summary: DIAGNOSIS: 1. NEUTROPENIA. 2. THROMBOCYTOPENIA. Travel Ot Utilized?: No - Slovak Speaking HPI - Consult Narrative Reason for consult: Consult for Leukopenia and Thrombocytopenia. Narrative: Branden Gibson is a 85 year old gentleman, admitted on 06/27 for Pnuemonia. He presented with several days of Cough , fever and worsening dyspnea. 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 On Monday he felt really weak and could not get off the bed. He reported cough and shortness of breath with mucus secretion, noisy chest sounds and dyspnea with notable progression over the past 3 days. The cough is described as wet and productive, associated with increasing fatigue and subjective fevers at home without documented temperatures. He denies diaphoresis and lower extremity swelling. On presentation, he was noted to be hypoxic with oxygen saturation of 88% on room air and had diminished breath sounds bilaterally on examination. He was treated in the ED with nebulized bronchodilators and systemic steroids with partial improvement. Venous blood gas showed no evidence of hypercapnia or acidemia. CXR showed RLL opacity with CBC showing new neutropenia with chemistry showing Hypercalcemia and Lactic acidosis. Given persistent hypoxia and clinical concern for lower respiratory infection, the patient requires hospital admission for further management and monitoring. Chest CT from 06/27: 1. Bibasilar pneumonias. Short term follow up suggested. 2. Left renal upper pole cyst measuring 2.3 cm. 3. Calcified coronary atherosclerotic disease. 4. Moderate calcified atherosclerotic disease of the abdominal aorta. 5. Hiatal hernia. 6. Moderate osteopenia. 7. Prior sternotomy. 8. No acute intrathoracic findings. Past medical history significant for: Coronary artery disease status post CABG, hypertension, BPH, PVD and hyperlipidemia. FAMILY HISTORY: He does not know details of his family. 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 He has a girlfriend. He has 2 children. He quit smoking 25 years ago. He drinks socially. ROS: He does feel rather fatigued. He had fever and chills at home as well as yesterday night. He has a poor appetite. He has lost weight. He denies headache. He does complain of dizziness. He complains of right upper chest pain. Denies shortness of breath. No abdominal pain nausea vomiting heartburn indigestion. Bowels are working without any gross blood in it. No dysuria or hematuria. He complains of diffuse body aches. He denies focal weakness. He is depressed. No skin rashes no pruritus. Review of Systems - Constitutional Reports system reviewed and no additional complaints, except as documented - Eyes Reports system reviewed and no additional complaints, except as documented - ENT Reports system reviewed and no additional complaints, except as documented - Cardiovascular Reports system reviewed and no additional complaints, except as documented - Respiratory Reports no additional respiratory complaints - Gastrointestinal Reports system reviewed and no additional complaints, except as documented - Genitourinary Genitourinary: Reports no additional male genitourinary complaints - Musculoskeletal Reports system reviewed and no additional complaints, except as documented - Integumentary/Breasts Skin/Breast: Reports no additional skin complaints - Neurologic Reports system reviewed and no additional complaints, except as documented - Psychiatric Reports system reviewed and no additional complaints, except as documented - Endocrine Reports no additional endocrine complaints - Hematologic/Lymphatic Reports system reviewed and no additional complaints, except as documented - Allergic/Immunologic Reports system reviewed and no additional complaints, except as documented Oncology Screenings - ECOG Performance Status ECOG Performance Status: 2 ON LICENSE OF [facility] Medical History: Medical History (Last Reviewed 06/28/25 @ 10:54 by Rere Suazo) CAD (coronary artery disease) Diabetes mellitus HTN (hypertension) Hyperlipidemia PVD (peripheral vascular disease) Functional capacity: uses cane/walker Patient : No Family History: Family History (Last Reviewed 06/27/25 @ 21:17 by Harsh Monae MD) Father No problems noted. Mother No problems noted. Sister Cancer Surgical History: Surgical History (Last Reviewed 06/28/25 @ 10:54 by Rere Suazo) History of gastric surgery Hx of CABG Social History: Social History (Last Reviewed 06/27/25 @ 21:17 by Harsh Monae MD) Living Situation History: Household Members: Significant Other Housing: House Tobacco History: Patient Tobacco Use Status: Never used Tobacco Occupation Assessmet: service: No Home Medications and Allergies Current Medications: Current Medications Acetaminophen (Acetaminophen 325 Mg Tablet) 650 mg PO Q6H PRN PRN Reason: Pain, Mild 1-3,fever,headache Albuterol/Ipratropium (Albuterol/Iprat 2.5/0.5mg 3 Ml Ampul.Neb) 3 ml INHALE Q4H PRN PRN Reason: Shortness of Breath/Wheezing Albuterol/Ipratropium (Albuterol/Iprat 2.5/0.5mg 3 Ml Ampul.Neb) 3 ml INHALE RQ6H WHILE AWAKE [facility] Last Admin: 06/29/25 13:26 Dose: 3 ml Aspirin (Aspirin 81 Mg Tab.Chew) 81 mg PO DAILY [facility] Last Admin: 06/29/25 08:11 Dose: 81 mg Atorvastatin Calcium (Atorvastatin Calcium 80 Mg Tablet) 80 mg PO DAILY [facility] Last Admin: 06/29/25 08:11 Dose: 80 mg Benzonatate (Benzonatate 100 Mg Capsule) 100 mg PO TID PRN PRN Reason: Cough Brimonidine Tartrate (Brimonidine Tartrate 0.2% Oph 5 Ml Bottle) 1 drop EYE- BOTH BID@0600,1800 [facility] Last Admin: 06/29/25 05:39 Dose: 1 drop Calcium Carbonate (Calcium Carbonate 750 Mg Tab.Chew) 750 mg PO Q4H PRN PRN Reason: Heartburn Enoxaparin Sodium (Enoxaparin Sodium 40 Mg/0.4 Ml Syringe) 40 mg SUBCUT Q24H [facility] Last Admin: 06/28/25 20:54 Dose: 40 mg Ceftriaxone Sodium 1 gm/ (Sodium Chloride) 50 mls @ 100 mls/hr IV Q24H [facility] Last Infusion: 06/28/25 18:51 Dose: Infused Azithromycin 500 mg/ Sodium (Chloride) 250 mls @ 125 mls/hr IV Q24H [facility] Last Infusion: 06/28/25 20:58 Dose: Infused Insulin Human Lispro (Insulin Lispro 100 Unit/Ml 3 Ml Vial) 0 unit SUBCUT QIDACHS [facility]; Protocol Last Admin: 06/29/25 12:11 Dose: 4 unit Magnesium Hydroxide (Milk Of Magnesia 30 Ml Oral.Susp) 30 ml PO DAILY PRN PRN Reason: Constipation Melatonin (Melatonin 3 Mg Tablet) 6 mg PO BEDTIME PRN PRN Reason: Insomnia Ondansetron HCl (Ondansetron Hcl 4 Mg/2 Ml Vial) 4 mg IVPUSH Q8H PRN PRN Reason: Nausea and Vomiting Sodium Chloride (0.9 % Sodium Chloride Flush 3 Ml Syringe) 3 ml IVFLUSH QSHIFT [facility] Last Admin: 06/29/25 08:18 Dose: Not Given Tamsulosin HCl (Tamsulosin Hcl 0.4 Mg Capsule) 0.8 mg PO BEDTIME [facility] Last Admin: 06/28/25 20:53 Dose: 0.8 mg Home Medications ?Medication ?Instructions ?Recorded ?Confirmed ?Type aspirin 81 mg chewable tablet 1 tab PO DAILY 03/23/21 06/27/25 History cilostazol 50 mg tablet 50 mg PO DAILY 03/23/21 06/27/25 History hydrochlorothiazide 25 mg tablet 25 mg PO DAILY 03/23/21 06/27/25 History metformin 1,000 mg tablet 1,000 mg PO BID 03/23/21 06/27/25 Histor y blood sugar diagnostic (FreeStyle #10 ea 03/30/21 12/05/23 History Lite Strips) lancets 33 gauge (TRUEplus Lancets) #100 ea 03/30/21 12/05/23 History clotrimazole-betamethasone 1 1 appl topical BID PRN Rash 05/04/21 History %-0.05 % topical cream glipizide 10 mg tablet 20 mg PO BIDAC 08/23/22 06/27/25 History brimonidine 0.2 % eye drops 1 drp ophthalmic (eye) 04/01/25 06/27/25 History BID@0600,1800 empagliflozin 10 mg tablet 10 mg PO DAILY@0600 04/01/25 06/27/25 Hi story (Jardiance) nitroglycerin 0.4 mg sublingual 0.4 mg sublingual Q5M PRN Chest 06/27/25 06/27/25 History tablet Pain rosuvastatin 40 mg tablet 40 mg PO DAILY 06/27/25 06/27/25 History tamsulosin 0.4 mg capsule 0.8 mg PO DAILY@1700 06/27/25 06/27/25 H istory telmisartan 40 mg tablet 20 mg PO DAILY PRN sbp>100 06/27/2506/09 History Allergies Allergy/AdvReac Type Severity Reaction Status Date / Time No Known Allergies (No Known Allergy Verified 06/27/25 17:14 Allergies*) Physical Exam Vital signs: Vital Signs Temp 98.1 F 06/29/25 12:00 Pulse 74 06/29/25 13:28 Resp 18 06/29/25 13:28 BP 138/61 06/29/25 12:00 Pulse Ox 96 06/29/25 12:00 O2 Del Method Room Air 06/29/25 12:00 O2 Flow Rate 2 06/28/25 03:59 Intake & Output 06/28/25 06/29/25 06/29/25 18:59 06:59 18:59 Intake Total 50 / 380 330 / 380 800 / 800 Output Total 800 / 2100 1300 / 2100 Balance -750 / -1720 -970 / -1720 800 / 800 Urine Output (Average ml/kg/hr) 1.00 1.63 1.63 Intake: Intake, Oral Amount 80 / 80 800 / 800 Intake, IV Amount 50 / 300 250 / 300 Azithromycin 500 mg In 0.9 % 250 / 250 Sodium Chloride 250 ml @ 125 mls/hr IV Q24H [facility] Rx#: [id number] cefTRIAXone sodium 1 gm In 0.9 50 / 50 % Sodium Chloride 50 ml @ 100 mls/hr IV Q24H [facility] Rx#: [id number] Output: Output, Urine Amount 800 / 2100 1300 / 2100 Other: Breakfast % Eaten 100% 100% Lunch % Eaten 75% 100% Eating (Feeding) Ability Independent Number of Unmeasured Voids 2 4 Urine Urinal Urinal Bathroom Urine Color Pale Yellow Yellow Yellow Last Bowel Movement 06/27/25 Weight 66.6 kg Hem/Onc Consult Result - Labs CBC & Chem 7: 06/30/25 05:52 06/30/25 05:52 Labs: Short CBC 06/29/25 Range/Units 08:11 WBC 1.7 L (4.8-10.8) X10*3/uL Hgb 12.0 L (14.0-18.0) g/dl Hct 34.9 L (42.0-52.0) % Plt Count 116 L (160-400) X10*3/uL Assessment and Plan Patient Active problem list reviewed?: Yes (1) Leukopenia Status: Acute Assessment and plan: This is a pleasant 35-year-old gentleman, who presented on 06/27 with a few days of Cough , fever and worsening dyspnea. The patient is Japanese speaker, history was obtained by a friend Rima via phone. DATABASE: 04/16. WBC 5.5, HGB 15, PLT 132. 06/27. WBC 2.5. 06/28. WBC 1.6. 06/29. WBC 1.7. Serial platelet count: 157/126/116. LDH: 162. PT: 12.4. D-dimer:<150. Lactic acid: 2.8. Respiratory panel: Negative. Blood cultures: Negative for 48 hours. CAT scan of the chest from 06/27 revealed: 1. Bibasilar pneumonias. Short term follow up suggested. 2. Left renal upper pole cyst measuring 2.3 cm. 3. Calcified coronary atherosclerotic disease. 4. Moderate calcified atherosclerotic disease of the abdominal aorta. 5. Hiatal hernia. 6. Moderate osteopenia. 7. Prior sternotomy. 8. No acute intrathoracic findings. Patient has presented with bibasilar pneumonia. Has developed neutropenia and thrombocytopenia. DIFFERENTIAL DIAGNOSIS: 1. ACUTE INFECTION/PNEUMONIA/SEPSIS: Sepsis can cause acute neutropenia. The body's severe response to infection leads to rapid drop in neutrophils and neutropenic sepsis. In response to severe infection, neutrophils migrate from the blood stream to the infected tissues to combat pathogens. Neutrophils can undergo Netosis (Neutroph extracellular trap formation) a mechanism where they are released DNA in its to trapped microbes but this also leads to the destruction and consumption. Sepsis can also impact bone marrows ability to produce new neutrophils, worsening the shortage. This can lead to a vicious cycle. Other causes could be viral illness like HIV or hepatitis. 2. MEDICATION RELATED: He has been started on antibiotics, cephalosporins. These can be associated with neutropenia. 3. COLLAGEN VASCULAR DISORDERS: SLE versus rheumatoid arthritis. 4. UNDERLYING MYELO INFILTRATIVE DISORDERS: MDS versus lymphoma versus multiple myeloma. PLAN: Will proceed with further evaluation. Check CBCD and a manual differential: WBC 1.7, HGB12, HCT 35, PLT 116. Check HIV and hepatitis-B and C screens: Negtive. Check collagen vascular profile: ESR 43, RA: <13 and KENDELL: pending. Check LDH 162. Check peripheral blood for flow cytometry: Non specific T-cell dominant profile. Diagnostic features of a B cell lymphoproliferative disorder are not seen. Check SIEP.: no monoclonal protein. I will follow the trend of the WBC over the next few days. If the count does not improve, will proceed with a bone marrow exam for further evaluation. Thank you for the consult, I will follow along with you, CC: Unknown Physician. - Time Spent With Patient Time Spent with Patient (in minutes): 30
--- NOTE | 2025-06-29 15:11 | P.PNIM_ITS ---
Subjective Subjective Date of Service: 06/29/25 Review of Systems Follow up PNA still with cough weaning oxygen down Physical Exam 2 Exam: Exam: Appearing in no acute distress head is normocephalic atraumatic eyes pupils are PERRLA sclera is anicteric mouth throat mucous membranes are intact and moist neck is supple no lymphadenopathy, no JVD noted lung sounds are clear to auscultation heart regular rate rhythm, clear S1, S2 positive bowel sounds, abdomen is soft, nontender neuro patient is alert x3, no focal deficits Vital Signs: Vital Signs: Last Vital Signs Temp 98.1 F 06/29/25 12:00 Pulse 74 06/29/25 13:28 Resp 18 06/29/25 13:28 BP 138/61 06/29/25 12:00 Pulse Ox 96 06/29/25 12:00 O2 Del Method Room Air 06/29/25 12:00 O2 Flow Rate 2 06/28/25 03:59 BMI result Body Mass Index 23.0 Objective Data Active Medications Acetaminophen (Acetaminophen 325 Mg Tablet) 650 mg PO Q6H PRN PRN Reason: Pain, Mild 1-3,fever,headache Albuterol/Ipratropium (Albuterol/Iprat 2.5/0.5mg 3 Ml Ampul.Neb) 3 ml INHALE Q4H PRN PRN Reason: Shortness of Breath/Wheezing Albuterol/Ipratropium (Albuterol/Iprat 2.5/0.5mg 3 Ml Ampul.Neb) 3 ml INHALE RQ6H WHILE AWAKE [facility] Last Admin: 06/29/25 13:26 Dose: 3 ml Documented By: ERIKA Aspirin (Aspirin 81 Mg Tab.Chew) 81 mg PO DAILY [facility] Last Admin: 06/29/25 08:11 Dose: 81 mg Documented By: CHAMP Atorvastatin Calcium (Atorvastatin Calcium 80 Mg Tablet) 80 mg PO DAILY [facility] Last Admin: 06/29/25 08:11 Dose: 80 mg Documented By: CHAMP Benzonatate (Benzonatate 100 Mg Capsule) 100 mg PO TID PRN PRN Reason: Cough Brimonidine Tartrate (Brimonidine Tartrate 0.2% Oph 5 Ml Bottle) 1 drop EYE- BOTH BID@0600,1800 [facility] Last Admin: 06/29/25 05:39 Dose: 1 drop Documented By: CECILIA Calcium Carbonate (Calcium Carbonate 750 Mg Tab.Chew) 750 mg PO Q4H PRN PRN Reason: Heartburn Enoxaparin Sodium (Enoxaparin Sodium 40 Mg/0.4 Ml Syringe) 40 mg SUBCUT Q24H [facility] Last Admin: 06/28/25 20:54 Dose: 40 mg Documented By: CECILIA Ceftriaxone Sodium 1 gm/ (Sodium Chloride) 50 mls @ 100 mls/hr IV Q24H [facility] Last Infusion: 06/28/25 18:51 Dose: Infused Documented By: CHAMP Azithromycin 500 mg/ Sodium (Chloride) 250 mls @ 125 mls/hr IV Q24H [facility] Last Infusion: 06/28/25 20:58 Dose: Infused Documented By: CECILIA Insulin Human Lispro (Insulin Lispro 100 Unit/Ml 3 Ml Vial) 0 unit SUBCUT QIDACHS [facility]; Protocol Last Admin: 06/29/25 12:11 Dose: 4 unit Documented By: CHAMP Magnesium Hydroxide (Milk Of Magnesia 30 Ml Oral.Susp) 30 ml PO DAILY PRN PRN Reason: Constipation Melatonin (Melatonin 3 Mg Tablet) 6 mg PO BEDTIME PRN PRN Reason: Insomnia Ondansetron HCl (Ondansetron Hcl 4 Mg/2 Ml Vial) 4 mg IVPUSH Q8H PRN PRN Reason: Nausea and Vomiting Sodium Chloride (0.9 % Sodium Chloride Flush 3 Ml Syringe) 3 ml IVFLUSH QSHIFT [facility] Last Admin: 06/29/25 08:18 Dose: Not Given Documented By: CHAMP Non-Admin Reason: Previously Administered Tamsulosin HCl (Tamsulosin Hcl 0.4 Mg Capsule) 0.8 mg PO BEDTIME [facility] Last Admin: 06/28/25 20:53 Dose: 0.8 mg Documented By: CECILIA Labs 06/29/25 08:11 06/28/25 07:32 Labs: Laboratory Results - last 24 hr 06/28/25 06/28/25 06/29/25 16:05 20:31 07:41 MCV MCH MCHC RDW Plt Count MPV Absolute Nucleated RBC Nucleated RBC % (auto) POC Glucose 335 H 295 H 218 H 06/29/25 06/29/25 08:11 11:50 MCV 91.4 MCH 31.4 MCHC 34.4 RDW 16.2 H Plt Count 116 L MPV 9.9 Absolute Nucleated RBC 0.000 Nucleated RBC % (auto) 0.0 POC Glucose 249 H Microbiology Microbiology Results: Microbiology 06/27/25 17:41 Blood Culture - Preliminary Blood - Venous No growth after 24 hours. 06/27/25 17:41 Blood Culture - Preliminary Blood - Venous No growth after 24 hours. Assessment and Plan (1) HTN (hypertension): Status: Acute Plan 85-year-old male with a past medical history significant for coronary artery disease status post CABG, hypertension, BPH, PVD and hyperlipidemia presents with several days of Cough , fever and worsening dyspnea. Sepsis secondary to pneumonia complicated with Lactic acidosis and acute hypoxic respiratory failure normal Procalcitonin CT bilateral bibasilar pneumonia neg blood culture RPP negative Covered with Azithromycin and Ceftriaxone Wean O2 down as tolerated Moderate Neutropenia Neutropenic precautions This is likely from sepsis Treat infection, continue work up, monitor CBC Consider further work up if not improving Hx Smoking, possible COPD w exacerbation bilateral wheezing and rhonchi received a dose of steroids Continue Duonebs Dung and PrN monitor response Acute hypercalcemia. Resolved Could be related to HCT usage s/p fluid bolus, PTH 83.6 follow Ca level Lactic acidosis, acute Likely sepsis related but could be secondary to Metformin Hold Metformin Fluid bolus, treat infection, O2 supplement VBG not showing acidosis BPH Continue Tamsulosin DVT PPx Lovenox full code The patient will need 2 overnight hospital stay for treatment of sepsis pending final cultures and evaluation of neutropenia. Quality Stroke Does the patient have a stroke diagnosis?: No VTE Prior VTE?: No VTE Risk Level:: Medical - moderate - high VTE Device Contraindication: Treatment Not Indicated VTE Drug Contraindication: N/A - Med Ordered
--- NOTE | 2025-06-29 15:24 | MHC.CM.PN ---
CM INFORMED PT IS MEDICALLY CLEARED FOR DC CM MET WITH PT WHO REQUESTED HIS FRIEND, ROXY [phone] BE CALLED ON SPEAKER PHONE TO TRANSLATE PER PT AND FRIEND, PT DOES NOT WANT TO USE THE VIDEO OR PHONE INTERPRETERS HE DOES NOT TRUST THEM ROXY REPORTS THEY ARE CONCERNED ABOUT THE PT LEAVING TODAY HE HAD A PERIOD OF CONFUSION LAST NIGHT SHE REPORTS HE GOT OUT OF BED AND WENT TO THE [place], HE ALSO REPORTED CHILLS SHE REPORTS SHE IS WORRIED MAYBE HE HAD A FEVER CM EXPLAINED HE IS ON Q 4 VS AND HAS NOT HAD A FEVER SINCE ADMISSION THE RIGHT TO APPEAL WAS EXPLAINED, HOWEVER PT AND FRIEND ARE AGREEABLE TO DC TOMORROW THEY ALSO REPORT THE PTS S/O IS UNAVAILABLE TO TRANSPORT OR BE HOME WITH HIM TODAY SHE IS WORKING EVENINGS PER DISCUSSION, PT WILL DC HOME TOMORROW S/O WILL TRY TO GET A BREAK TO PROVIDE TRANSPORT, BUT GETS OFF WORK AT 1430 HOURS
[2025-06-29 16:41] LABS: Glucose, Whole Blood 231 mg/dL (60-115)
[2025-06-29 16:52] LABS: Troponin-I High Sensitivity 15.9 ng/L (<3.5-35.0)
[2025-06-29 20:27] LABS: Glucose, Whole Blood 236 mg/dL (60-115)
[2025-06-29] MEDS: 0.9 % Sodium Chloride Flush 3 ML SYRINGE IVFLUSH (21:01)
[2025-06-30] MEDS: Brimonidine Tartrate 0.2% Oph 5 ML BOTTLE 1 DROP EYE-BOTH (05:38)
[2025-06-30 07:14] LABS: Baso%MD 0.8 %; Eos%MD 0.8 %; Hematocrit 34.7 % (42.0-52.0); Hemoglobin 11.8 g/dl (14.0-18.0); IG%MD 7.4 %; Lymph%MD 56.2 %; Mean Corpuscular HGB Conc 34.0 g/dl (31.0-36.0); Mean Corpuscular Hemoglobin 31.7 pg (27.0-33.0); Mean Corpuscular Volume 93.3 fL (80.0-98.0); Mono%MD 7.4 %; NRBC Abs Auto 0.000 X10*3/uL (0.0-0.012); NRBC Pct Auto 0.0 /100WBC (0.0-0.2); Neut%MD 27.4 %; Platelet Count 123 X10*3/uL (160-400); Red Blood Count 3.72 X10*6/uL (4.60-5.80)
[2025-06-30 07:16] LABS: WBC ABN SCTR FOR CBC 1
[2025-06-30 07:25] LABS: Anion Gap 12 (12-20); Blood Urea Nitrogen 21 mg/dL (9-16); Calcium 8.7 mg/dL (8.4-10.2); Carbon Dioxide 23 mmol/L (22-29); Chloride 111 mmol/L (96-108); Creatinine Clr Calc Pharmacy 68.2; Estimated Glomerular Filt Rate > 60; Potassium 3.4 mmol/L (3.3-5.1); Sodium 143 mmol/L (135-145)
[2025-06-30 07:33] LABS: Glucose, Whole Blood 204 mg/dL (60-115)
[2025-06-30 07:34] VITALS: BP 153/67; PULSE 76; RESP 16; TEMP 36.6; O2SAT 97
[2025-06-30 07:50] LABS: HBS Num1 61.78 mIU/mL (0-7.99); HBc Num1 7.06 S/CO (0.00-0.79); HBsAGNum1 0.35 S/CO (0.00-0.99); HIV Num 1 0.07 S/CO (0.00-0.99); Hepatitis B Surface Antigen Negative (Negative); ~HepC Num1 0.10 S/CO (0.00-0.79); ~Hepatitis B Surface Antibody REACTIVE (Nonreactive); ~Hepatitis C Antibody Nonreactive (Nonreactive)
[2025-06-30 08:06] LABS: Atypical Lymphs Percent Manual 3 % (0-6); Band Neutrophils Percent 2 % (3-5); Eosinophils Percent Manual 1 % (0-4); Lymphocytes Percent Manual 49 % (20-40); Monocytes Percent Manual 4 % (2-11); Neutrophils Percent Manual 41 % (45-73)
[2025-06-30 08:08] VITALS: PULSE 64; RESP 16; O2SAT 94
[2025-06-30] MEDS: Albuterol/Iprat 2.5/0.5MG 3 ML AMPUL.NEB INHALE (08:08)
[2025-06-30 08:14] LABS: Acanthocytes 2+ (3-5) /OIF; Burr Cells 2+ (3-5) /OIF; Lymphocytes Absolute Manual 0.6 X10*3/uL (1.2-4.9); Neutrophils Absolute Manual 0.5 X10*3/uL (2.0-8.3); Ovalocytes 1+ (5-14) /OIF; RBC Morphology NOTED; White Blood Count 1.2 X10*3/uL (4.8-10.8)
--- NOTE | 2025-06-30 08:17 | PC.NURSE ---
Ar Reddy Interperter Will #[id number] utilized for assessment and patient educaiton.
[2025-06-30] MEDS: 0.9 % Sodium Chloride Flush 3 ML SYRINGE IVFLUSH (08:25)
--- NOTE | 2025-06-30 10:30 | PC.NURSE ---
Patient was inquiring about flu vaccine, reached out to provider Lucie Saavedra who recommended against it at this time due to neutropenia and to have patient follow up with hem/onc. Education provided to patient with discharge teaching.
--- NOTE | 2025-06-30 10:37 | MHC.CM.PN ---
pt dcd home self care
--- NOTE | 2025-06-30 10:54 | PC.NURSE ---
Discharge instructions and education reviewed with patient utilizing [facility] brush worker #[id number].
[2025-06-30 10:59] VITALS: BP 169/74; PULSE 74; RESP 16; TEMP 36.7; O2SAT 97
--- NOTE | 2025-06-30 11:15 | PC.NURSE ---
Provider Leroy notified of discharge vital signs, patient symptomatic. Patinet ambulating around room. Via tigerconnect, provider okay to continue with discharge.
[2025-06-30 11:18] LABS: HBc Num2 7.20 S/CO; HBc Num3 7.19 S/CO
[2025-07-07 14:09] LABS: Anti Nuclear Antibody Pattern Nuclear, Speckled; Anti Nuclear Antibody Screen POSITIVE (NEGATIVE); Anti Nuclear Antibody Titer 1:80 titer
== END 2025-06-30 11:40 | disposition home or self-care (01) | DRG 871 ==
LOC: HO.ED 17:29 → HO.EDOVER 21:15 → HO.IMC 06-28 01:33 → HO.S3 06-28 14:23
PROVIDERS: Internal Medicine Medical Oncology; Admitting Provider Student in an Organized Health Care Education/Training Program; Emergency Provider Emergency Medicine Emergency Medical Services; Visit Provider Nurse Practitioner Acute Care
DX: A41.9 Sepsis, unspecified organism (principal); J18.9 Pneumonia, unspecified organism; E87.21 Acute metabolic acidosis; I25.10 Atherosclerotic heart disease of native coronary artery without angina pectoris; N40.0 Benign prostatic hyperplasia without lower urinary tract symptoms; E11.51 Type 2 diabetes mellitus with diabetic peripheral angiopathy without gangrene; E83.52 Hypercalcemia; D70.9 Neutropenia, unspecified; Z20.822 Contact with and (suspected) exposure to COVID-19; Z87.891 Personal history of nicotine dependence; Z95.1 Presence of aortocoronary bypass graft; Z79.82 Long term (current) use of aspirin; Z79.85 Long-term (current) use of injectable non-insulin antidiabetic drugs; Z79.899 Other long term (current) drug therapy
CPT/HCPCS: 36415; 71045; 71250; 80048; 80053; 82784; 82803; 82947; 83605; 83615; 83735; 83880; 83970; 84145; 84484; 85007; 85025; 85027; 85652; 86038; 86039; 86334; 86431; 86704; 86706; 86803; 87040; 87340; 87389; 87633; 87637; 88184; 88185; 93005; 94640; 97162; 99285; J0456; J0696; J1650; J1885; J2919; J3475

== ENCOUNTER → 2025-06-27 17:23 | Outpatient (BNV) | payer MEDICARE, SELFPAY | PROVIDERS: Admitting Provider Student in an Organized Health Care Education/Training Program; Emergency Provider Emergency Medicine Emergency Medical Services; Visit Provider Internal Medicine Cardiovascular Disease | DX: R00.0 Tachycardia, unspecified (principal); I49.1 Atrial premature depolarization | CPT/HCPCS: 93010 ==

== ENCOUNTER → 2025-06-27 17:31 | Outpatient (BNV) | payer MEDICARE, SELFPAY | PROVIDERS: Emergency Provider Emergency Medicine Emergency Medical Services; Visit Provider Radiology Diagnostic Radiology | DX: I70.0 Atherosclerosis of aorta (principal); Z98.890 Other specified postprocedural states | CPT/HCPCS: 71045; 71250 ==

== ENCOUNTER 2025-06-27 21:03 | Outpatient (BNV) | payer MEDICARE, SELFPAY | END 2025-06-29 16:03 | PROVIDERS: Admitting Provider Student in an Organized Health Care Education/Training Program; Emergency Provider Emergency Medicine Emergency Medical Services; Visit Provider Internal Medicine Cardiovascular Disease | DX: I49.3 Ventricular premature depolarization (principal); I45.4 Nonspecific intraventricular block | CPT/HCPCS: 93010 ==

== ENCOUNTER → 2025-06-27 21:03 | Outpatient (BNV) | payer MEDICARE, SELFPAY | PROVIDERS: Admitting Provider Student in an Organized Health Care Education/Training Program; Emergency Provider Emergency Medicine Emergency Medical Services; Visit Provider Student in an Organized Health Care Education/Training Program | DX: J96.01 Acute respiratory failure with hypoxia (principal); A41.9 Sepsis, unspecified organism; J18.9 Pneumonia, unspecified organism; E87.21 Acute metabolic acidosis; E83.52 Hypercalcemia | CPT/HCPCS: 99222; 99232 ==

== ENCOUNTER → 2025-06-27 21:03 | Outpatient (BNV) | payer MEDICARE, SELFPAY | PROVIDERS: Admitting Provider Student in an Organized Health Care Education/Training Program; Emergency Provider Emergency Medicine Emergency Medical Services; Visit Provider Internal Medicine Medical Oncology | DX: D61.818 Other pancytopenia (principal); J18.8 Other pneumonia, unspecified organism | CPT/HCPCS: 99222 ==